=== PATIENT | female | born 1940 | race Caucasian/White ===

== ENCOUNTER 2020-08-20 07:50 | Inpatient (IN) ==
--- NOTE | 2020-08-20 07:54 | Emergency Department Note ---
Impression & Plan Closed intertrochanteric fracture, Fall, Acute leg pain ED Provider Note NAME: KAREN CASTREJON AGE: 80 SEX: F : 1940 ARRIVES VIA: Ambulance INFORMANT: Patient, ED PROVIDER(S): Beny Nayak MD Chief Complaint: Fall, leg pain HPI: Patient did report slipping out of bed earlier this morning. Unknown downtime. The patient denies any LOC or head strike. The patient does not use blood thinners. The patient reportedly had some pain to the right lower extremity but did have abrasions noted to the left knee. Patient denies any prior orthopedic history. The patient states she is compliant with medications. The patient is live by herself at home and reportedly does not use an ambulatory assist device. Patient denies fevers, chills, chest pains, nausea, vomiting, head, neck, back, abdomen, chest, or bilateral upper extremity pain. Patient did not take anything prior to arrival. The patient's pain is sharp and achy constant well localized to the right mid thigh and is worse with palpation or movement. The patient states she was able to move from the front to the top of the bed but did have pain with bearing weight. He also was unable to bear full weight on the right lower extremity. ROS: See HPI for pertinent positives and negatives. A total of 10 systems were reviewed and otherwise negative. Past medical history: See below Surgical history: See below Social history: See below Physical Exam: GENERAL: Wearing a mask. NAD, non-toxic. EYE EXAM: Normal conjunctiva. PERRL, no anisocoria and EOM's grossly intact w/o pain. Head: Normocephalic atraumatic without contusion or laceration noted. NECK: Supple, no nuchal rigidity, no adenopathy, non-tender. No signs of meningismus. No midline C-spine TTP. LUNGS: Clear to auscultation. Normal chest wall mechanics. HEART: NSR, no MRG. ABDOMEN: Abdomen soft, non-tender, normo-active bowel sounds, no masses, no rebound or guarding. BACK: No CVA TTP. No pain to the thoracic or lumbar spine SKIN: No rashes and no bruising. UPPER EXTREMITIES: Upper extremities are grossly normal. No obvious TTP or deformity. Good range of motion. LOWER EXTREMITIES: Decreased range of motion right lower extremity with pain to the right mid thigh, neurovascular intact distally with soft compartments, no obvious laceration, good range of motion left lower extremity, small abrasion to the right medial knee with no obvious effusion. Soft compartments neurovascular intact distally NEURO EXAM: A&O x3, cranial nerves II-XII grossly intact, normal speech, moves all 4 extremities on command w/o issue. Differential diagnoses: Fracture, subluxation, dislocation, contusion, ligamentous injury, neurovascular, compartment syndrome, rhabdomyolysis, as well as other pathologies. Course: Patient was seen and evaluated the bedside. Full history physical exam was performed. EKG: Normal sinus rhythm, rate of 91, prolonged QTC, normal QRS and W[place], left axis deviation. No prior EKGs for comparison. Imaging Studies: Radiology results as stated below per my review in the radiologist's interpretation: XR chest 1V portable HISTORY: Right hip fracture. Fall. COMPARISON: None. FINDINGS: Questionable vague 3 cm focal density within the right upper lobe. Otherwise, lungs are clear. No pleural effusion is. No pneumothorax. The heart is normal in size. No rib fractures. IMPRESSION: 1. No acute process within the chest. 2. Questionable vague 3 cm focal density within the right upper lobe. This is likely due to overlying artifact/soft tissues. However, repeat PA and lateral views the chest are recommended for further evaluation to exclude a pulmonary lesion. ACT 112: Negative or not required by law. Electronically signed by: Rad Boyle M.D. 08/20/2020 8:44 AM Dictated: 08/20/2039 Transcribed: 08/20/20838 LEFT KNEE 3 VIEWS CLINICAL HISTORY: Fall with left knee pain. FINDINGS: AP, crosstable lateral, and sunrise views of the left knee are obtained. No prior studies are available for comparison at the time of dictation. The skeletal structures are osteopenic. No fracture is seen. There is mild tricompartmental degenerative joint space narrowing. There are small marginal osteophytes and patellar enthesophytes. No joint effusion is identified. A calcified fabella is incidentally noted. The overlying soft tissues are normal as imaged. IMPRESSION: No acute bony abnormality is identified. Electronically signed by: Logan Lopez M.D. 08/20/2020 8:40 AM Dictated: 08/20/2035 Transcribed: 08/20/20834 XR hip RT min 2V, XR femur RT 2V routine CLINICAL HISTORY: R femur pain. Fall. COMPARISON STUDY: None. FINDINGS: Comminuted and displaced intertrochanteric fracture the proximal right femur. The most lesser trochanter demonstrates up to 1.6 cm of medial displacement. No dislocation. The visualized pelvic bones are intact. No fractures within the mid to distal right femur. IMPRESSION: Comminuted and displaced intertrochanteric fracture of the proximal right femur. ACT 112: Negative or not required by law. Electronically signed by: Rad Boyle M.D. 08/20/2020 8:37 AM Dictated: 08/20/20835 Transcribed: 08/20/20835 Cardiac monitoring: An order was placed for continuous cardiac monitoring. The monitor shows a rate of 82 with sinus rhythm. MDM: Patient was seen due to concern for fall. The patient does have pain and limited range of motion of the right lower extremity. Plain films were ordered. Patient also did have an abrasion to the left knee although she denied any pain. X-ray was ordered. The patient declined any pain medication at this time. Patient does have an a hip fracture. Additional chest x-ray Covid swab blood work were obtained. Patient is white count of 13 with a normal H&H. Kidney function is unremarkable. Orthopedics is made aware Daniel Gutierrez PA-C. I did speak the on-call hospitalist Megan Reilly PA-C and the patient was to be admitted under Dr. Vieyra. Past Med/Surg History Medical History Anxiety History of breast cancer HTN (hypertension) Surgical History History of mastectomy Right - 2013 Family History Mother , 92 Old age Father Sudden Sister Lymphoma Leukemia Social History Smoking Status: Never smoker Hx Alcohol Use: No Hx Substance Use: No Preferred Language: Kyrgyz marital status: Current Living Situation: Alone Current Living Situation Comment: skilled nursing apartment Feels Safe at Home: Yes Allergies Allergies Allergy/AdvReac Type Severity Reaction Status Date / Time amoxicillin Allergy Rash Unverified 08/20/20 08:16 Home Meds Home Medications Medication Instructions Recorded Confirmed buspirone 5 mg PO BID PRN 08/20/20 08/20/20 letrozole 5 mg PO DAILY 08/20/20 08/20/20 lisinopril 2.5 mg PO DAILY 08/20/20 08/20/20 Results & Data (ED) Vital Signs Vital Signs - 24 hr 08/20/20 07:59 08/20/20 08:10 Temperature 37.1 C Temperature Source Oral Pulse Rate 82 Respiratory Rate 18 Respiratory Effort / Characteristics Non-Labored Spontaneous Respiratory Depth Normal Respiratory Pattern Regular Blood Pressure 164/99 H Blood Pressure Mean 120 Blood Pressure Position Lying Pulse Oximetry 97 98 Oxygen Delivery Method Room Air Room Air Sepsis Recent Fever Within 48 Hours No Sepsis New/Unexplained Change in Mental Status No Sepsis Action Taken by Nursing No Action Required Home Medications Current Medication List: was personally reviewed by me Laboratory Data Result diagrams: 08/20/20 08:45 08/20/20 08:45 Lab Results 08/20/20 08/20/20 08/20/20 Range/Units 08:45 08:45 08:45 WBC 13.59 H (4.8-10.8) K/uL RBC 4.51 (4.2-5.4) M/uL Hgb 13.7 (12.0-16.0) g/dL Hct 40.4 (37-47) % MCV 89.6 (80-100) fL MCH 30.4 (25-34) pg MCHC 33.9 (32-36) g/dL RDW Std Deviation 42.1 (36.4-46.3) fL RDW Coeff of Kelsey 12.8 (11.5-14.5) % Plt Count 332 (130-400) K/uL MPV 9.6 (7.4-10.4) fL Immature Gran % (Auto) 0.2 % Neut % (Auto) 83.8 % Lymph % (Auto) 5.6 % [place] % (Auto) 10.2 % Eos % (Auto) 0.1 % Baso % (Auto) 0.1 % Neut # (Auto) 11.40 H (1.4-6.5) K/uL Lymph # (Auto) 0.76 L (1.2-3.4) K/uL [place] # (Auto) 1.38 H (0.11-0.59) K/uL Eos # (Auto) 0.01 (0-0.5) K/uL Baso # (Auto) 0.01 (0-0.2) K/uL Immature Gran # (Auto) 0.03 H (0.00-0.02) K/uL PT 11.2 (9.0-12.0) Seconds INR 1.1 (0.9-1.1) APTT 23.6 (21.0-31.0) Seconds PTT Ratio 0.9 Sodium 139 (136-145) mmol/L Potassium 4.1 (3.5-5.1) mmol/L Chloride 107 (98-107) mmol/L Carbon Dioxide 23 (21-32) mmol/L Anion Gap 9.0 (3-11) BUN 23 H (7-18) mg/dl Creatinine 0.91 (0.6-1.2) mg/dl Est Cr Clr Drug Dosing 50.3 ml/min Est GFR ( Amer) 69.1 Est GFR (Non-Af Amer) 59.6 BUN/Creatinine Ratio 25.2 H (10-20) Glucose 205 H (70-99) mg/dl Calcium 10.1 (8.5-10.1) mg/dl 25-OH Vitamin D Total (30-100) ng/ml COVID-19 Eval Order SARS-CoV-2, RNA, NAAT (NEGATIVE) 08/20/20 08/20/20 08/20/20 Range/Units 08:50 08:50 08:52 WBC (4.8-10.8) K/uL RBC (4.2-5.4) M/uL Hgb (12.0-16.0) g/dL Hct (37-47) % MCV (80-100) fL MCH (25-34) pg MCHC (32-36) g/dL RDW Std Deviation (36.4-46.3) fL RDW Coeff of Kelsey (11.5-14.5) % Plt Count (130-400) K/uL MPV (7.4-10.4) fL Immature Gran % (Auto) % Neut % (Auto) % Lymph % (Auto) % [place] % (Auto) % Eos % (Auto) % Baso % (Auto) % Neut # (Auto) (1.4-6.5) K/uL Lymph # (Auto) (1.2-3.4) K/uL [place] # (Auto) (0.11-0.59) K/uL Eos # (Auto) (0-0.5) K/uL Baso # (Auto) (0-0.2) K/uL Immature Gran # (Auto) (0.00-0.02) K/uL PT (9.0-12.0) Seconds INR (0.9-1.1) APTT (21.0-31.0) Seconds PTT Ratio Sodium (136-145) mmol/L Potassium (3.5-5.1) mmol/L Chloride (98-107) mmol/L Carbon Dioxide (21-32) mmol/L Anion Gap (3-11) BUN (7-18) mg/dl Creatinine (0.6-1.2) mg/dl Est Cr Clr Drug Dosing ml/min Est GFR ( Amer) Est GFR (Non-Af Amer) BUN/Creatinine Ratio (10-20) Glucose (70-99) mg/dl Calcium (8.5-10.1) mg/dl 25-OH Vitamin D Total 24.4 L (30-100) ng/ml COVID-19 Eval Order Covid19 [facility] SARS-CoV-2, RNA, NAAT NEGATIVE (NEGATIVE) Administered Medications Sodium Chloride (Nss 1000ml) 1,000 mls @ 150 mls/hr IV .[id number] [facility], [facility] Stop: 08/20/20 15:24 Last Admin: 08/20/20 09:00 Dose: 150 mls/hr Documented by: [id number] Discharge Plan Visit Data Chief Complaint: Fall ED Provider: Beny Nayak Discharge Problem: Closed intertrochanteric fracture, Fall, Acute leg pain Forms Stand Alone Forms: My [employer] Prescriptions Prescriptions: No Action lisinopril 5 mg tablet 2.5 mg PO DAILY RF: 0 letrozole 2.5 mg tablet 5 mg PO DAILY RF: 0 buspirone 5 mg tablet 5 mg PO BID PRN (Reason: Anxiety) RF: 0 Discharge Problem: Closed intertrochanteric fracture Qualifiers: Encounter type: initial encounter Fracture alignment: displaced Laterality: right Qualified Code(s): S72.141A - Displaced intertrochanteric fracture of right femur, initial encounter for closed fracture Fall Qualifiers: Encounter type: initial encounter Qualified Code(s): W19.XXXA - Unspecified fall, initial encounter Acute leg pain Qualifiers: Laterality: right Qualified Code(s): M79.604 - Pain in right leg
[2020-08-20] MEDS ORDERED: MoRPHine SULFATE 2 MG/ML CARP IV PRN ×2 (08:31→11:31)
--- NOTE | 2020-08-20 08:39 | XRay Report ---
XR hip RT min 2V, XR femur RT 2V routine CLINICAL HISTORY: R femur pain. Fall. COMPARISON STUDY: None. FINDINGS: Comminuted and displaced intertrochanteric fracture the proximal right femur. The most less er trochanter demonstrates up to 1.6 cm of medial displacement. No dislocation. The visualized pelvic bones are intact. No fractures within the mid to distal right femur. IMPRESSION: Comminuted and displaced intertrochanteric fracture of the proximal right femur. ACT 112: Negative or not required by law. Electronically signed by: Rad Boyle M.D. 08/20/2020 8:37 AM
--- NOTE | 2020-08-20 08:41 | XRay Report ---
LEFT KNEE 3 VIEWS CLINICAL HISTORY: Fall with left knee pain. FINDINGS: AP, crosstable lateral, and sunrise views of the left knee are obtained. No prior studies a re available for comparison at the time of dictation. The skeletal structures are osteopenic. No frac ture is seen. There is mild tricompartmental degenerative joint space narrowing. There are small ivon inal osteophytes and patellar enthesophytes. No joint effusion is identified. A calcified fabella is incidentally noted. The overlying soft tissues are normal as imaged. IMPRESSION: No acute bony abnormality is identified. Electronically signed by: Logan Lopez M.D. 08/20/2020 8:40 AM
[2020-08-20] MEDS ORDERED: SODIUM CHLORIDE 0.9% 1000ML 1,000 ML IV SCH ×2 (08:45→12:00)
--- NOTE | 2020-08-20 08:45 | XRay Report ---
XR chest 1V portable HISTORY: Right hip fracture. Fall. COMPARISON: None. FINDINGS: Questionable vague 3 cm focal density within the right upper lobe. Otherwise, lungs are shona ar. No pleural effusion is. No pneumothorax. The heart is normal in size. No rib fractures. IMPRESSION: 1. No acute process within the chest. 2. Questionable vague 3 cm focal density within the right upper lobe. This is likely due to overlying artifact/soft tissues. However, repeat PA and lateral views the chest are recommended for further ev aluation to exclude a pulmonary lesion. ACT 112: Negative or not required by law. Electronically signed by: Rad Boyle M.D. 08/20/2020 8:44 AM
[2020-08-20 09:02] LABS: Basophils # (auto) 0.01 K/uL (0-0.2); Basophils % (auto) 0.1 %; Eosinophils # (auto) 0.01 K/uL (0-0.5); Eosinophils % (auto) 0.1 %; Hematocrit (blood only) 40.4 % (37-47); Hemoglobin 13.7 g/dL (12.0-16.0); Immature Granulocytes # (auto) 0.03 K/uL (0.00-0.02); Immature Granulocytes % (auto) 0.2 %; Lymphocytes # (auto) 0.76 K/uL (1.2-3.4); Lymphocytes % (auto) 5.6 %; Mean Corpuscular Hemoglobin 30.4 pg (25-34); Mean Corpuscular Hgb Conc 33.9 g/dL (32-36); Mean Corpuscular Volume 89.6 fL (80-100); Mean Platelet Volume 9.6 fL (7.4-10.4); Monocytes # (auto) 1.38 K/uL (0.11-0.59); Monocytes % (auto) 10.2 %; Neutrophils % (auto) 83.8 %; Platelet Count 332 K/uL (130-400); RDW Coefficient of Variation 12.8 % (11.5-14.5); RDW Standard Deviation 42.1 fL (36.4-46.3); Red Blood Count 4.51 M/uL (4.2-5.4); White Blood Count 13.59 K/uL (4.8-10.8)
[2020-08-20 09:21] LABS: BUN Creatinine Ratio 25.2 (10-20); Calcium 10.1 mg/dl (8.5-10.1); Creatinine Clr Calc Pharmacy 50.3 ml/min; Est GFR (African American) 69.1; Est GFR (Non-African American) 59.6; Potassium 4.1 mmol/L (3.5-5.1)
[2020-08-20 09:24] LABS: INR 1.1 (0.9-1.1); Partial Thromboplastin Ratio 0.9; Partial Thromboplastin Time 23.6 Seconds (21.0-31.0); Prothrombin Time 11.2 Seconds (9.0-12.0)
--- NOTE | 2020-08-20 10:32 | History & Physical Report ---
Date of Service August 20, 2020 Assessment & Plan (1) Fall: (2) Closed intertrochanteric fracture: Status post mechanical fall with sustained right intertrochanteric displaced comminuted proximal femur fracture. Patient admits to being able to complete 4 METS of activity without chest pain or shortness of breath. EKG and chest x-ray reviewed. Will repeat chest x-ray PA lateral view for completeness given abnormality. Overall low risk for procedure and no medical contraindication to proceed. Admit to medical Consult orthopedics N.p.o. until timing of procedure decided Bedrest, Fletcher catheter placed Preop antibiotics with cefazolin -patient with prior allergy to amoxicillin as rash, okay to proceed with cefazolin no history of anaphylaxis IV morphine severe pain, [place] moderate pain Leukocytosis wbc 13.59k, no s/sx of infection likely in setting of fall will obtain UA for pre op QTC lengthened 504ms, avoid QT prolonging agents repeat ecg in a.m. (3) Vitamin D deficiency: Vitamin D level 24.4 Start vitamin D3 5000 units daily Would repeat as outpatient in 3 months (4) Hyperglycemia: Admitting BSG 205 No prior history of diabetes, obtain A1c Monitor Accu-Cheks for now -if consistently elevated will add insulin coverage (5) HTN (hypertension): Blood pressure elevated in ED, likely in setting of fall and pain Continue lisinopril (6) DVT prophylaxis: SCD/teds for now will await surgical input to determine timing of surgery and reevaluate need for chemical prophylaxis Follow-up: PCP Dr. Beaulieu upon discharge Dispo: Admit to medical Patient was seen and examined in collaboration with Dr. Vieyra, please see addendum Daughter Marry (home) [phone] (cell) [phone] wishes to be contacted with updates. Discussed above assessment and plan and she agrees. History of Present Illness Chief Complaint: Fall prior to arrival. Primary Care Provider: Miranda Beaulieu, This is an 80-year-old female who has significant past medical history of right breast cancer status postmastectomy and radiation in 2013 and hypertension who presents to ED after sustaining a mechanical fall prior to arrival. She states she was trying to get back in bed when she slipped and fell on her right hip. She had immediate pain and inability to walk. Daughter called EMS. She was brought to ED where she was found to have sustained a right displaced comminuted proximal femur fracture. She was made bed rest. Prior to fall she states she has been in a good state of health. She denies any recent illness. She denies any fever, chills, sweats, lightheadedness, dizziness, syncope, striking of head, chest pain, shortness of breath, palpitations, cough, nausea, vomiting, abdominal pain, change in bowel or urinary habits. She resides at [facility] apartments at [facility]. She states she typically walks approximately 15 to 20 minutes daily and denies any exertional chest pain or shortness of breath. She denies any prior history of heart disease. Her appetite is otherwise been stable. Allergies Allergy/AdvReac Type Severity Reaction Status Date / Time amoxicillin Allergy Rash Unverified 08/20/20 08:16 latex Allergy Rash Verified 08/20/20 16:24 Home Medications Medication Instructions Recorded Confirmed Type buspirone 5 mg PO BID PRN 08/20/20 08/20/20 History letrozole 5 mg PO DAILY 08/20/20 08/20/20 History lisinopril 2.5 mg PO DAILY 08/20/20 08/20/20 History Past Med/Surg History Medical History Anxiety History of breast cancer HTN (hypertension) Pre-diabetes Surgical History History of mastectomy Right - 2013 Family History Mother , 92 Old age Father Sudden Sister Lymphoma Leukemia Social History Smoking Status: Never smoker Second Hand Exposure: No; Do You Dip or Chew Tobacco: No; Hx Alcohol Use: No Hx Substance Use: No Preferred Language: Slovak Communication Ability: Effective Beliefs That Will Affect Care: Confucianist marital status: Current Living Situation: Alone [facility] Feels Safe at Home: Yes Safety Concerns: Feels Safe At This Time Assistive Devices: Glasses Review of Systems Review of Systems: All systems reviewed & are unremarkable except as noted in HPI & below Physical Exam Physical Exam: Constitutional: Petite, female, WD/WN, vitals as above, NAD, sitting up in bed, pleasant, conversing easily Head: Normocephalic, Atraumatic Eyes: PERRL, conjunctivae normal, anicteric sclerae ENMT: external ear and nose normal, oropharynx normal Neck: trachea midline, no thyromegaly normal visual inspection Respiratory: normal respiratory effort, lungs clear to auscultation, no wheeze, rales, rhonchi. Normal insp/exp effort, no accessory muscle use Cardiovascular: RRR, no murmur, no edema Vessels: no JVD or carotid bruit Chest: normal inspection of chest Abdomen: normal bowel sounds, soft, nontender, no hepatosplenomegaly Musculoskeletal: no cyanosis or clubbing, active range of motion to all extremities except right lower extremity not evaluated in setting of fracture, right lower extremity shortened and inverted Skin: no rashes, warm and dry normal turgor Neurologic: PERRL, EOMI, accommodation nl, no face palsy, no dysarthria CN's II-XI intact bilaterally and moves all extremities Psychiatric: A+Ox3, euthymic affect Lymphatic: no cervical or axillary lymphadenopathy : Fletcher catheter in place draining yellow urine Results & Data Results & Data ([facility]) Vital Signs (Past 12 Hours) Vital Signs Temp Pulse Resp BP Pulse Ox 08/20/20 08:10 98 08/20/20 07:59 37.1 C 82 18 164/99 H 97 Diagnostic Findings CXR: 1. No acute process within the chest. 2. Questionable vague 3 cm focal density within the right upper lobe. This is likely due to overlying artifact/soft tissues. However, repeat PA and lateral views the chest are recommended for further evaluation to exclude a pulmonary lesion. Knee Xray: IMPRESSION: No acute bony abnormality is identified. Hip Xray: IMPRESSION: Comminuted and displaced intertrochanteric fracture of the proximal right femur. Femur Xray: IMPRESSION: Comminuted and displaced intertrochanteric fracture of the proximal right femur. COVID-19 Results Results COVID-19 Adm Lab Results: RBC 4.51 M/uL (4.2-5.4) 08/20/20 WBC 13.59 K/uL (4.8-10.8) H 08/20/20 Hgb 13.7 g/dL (12.0-16.0) 08/20/20 Hct 40.4 % (37-47) 08/20/20 Plt Count 332 K/uL (130-400) 08/20/20 Neutrophils (%) (Auto) 83.8 % 08/20/20 Lymphocytes (%) (Auto) 5.6 % 08/20/20 Monocytes # (Auto) 1.38 K/uL (0.11-0.59) H 08/20/20 Eosinophils # (Auto) 0.01 K/uL (0-0.5) 08/20/20 Immature Granulocyte % (Auto) 0.2 % 08/20/20 Neutrophils # (Auto) 11.40 K/uL (1.4-6.5) H 08/20/20 Lymphocytes # (Auto) 0.76 K/uL (1.2-3.4) L 08/20/20 Monocytes # (Auto) 1.38 K/uL (0.11-0.59) H 08/20/20 Eosinophils # (Auto) 0.01 K/uL (0-0.5) 08/20/20 Basophils # (Auto) 0.01 K/uL (0-0.2) 08/20/20 Immature Granulocyte # (Auto) 0.03 K/uL (0.00-0.02) H 08/20/20 Na 139 mmol/L (136-145) 08/20/20 K 4.1 mmol/L (3.5-5.1) 08/20/20 Cl 107 mmol/L (98-107) 08/20/20 CO2 23 mmol/L (21-32) 08/20/20 Anion Gap 9.0 (3-11) 08/20/20 BUN 23 mg/dl (7-18) H 08/20/20 Creatinine 0.91 mg/dl (0.6-1.2) 08/20/20 BUN/Creatinine Ratio 25.2 (10-20) H 08/20/20 Glucose Level 205 mg/dl (70-99) H 08/20/20 Ca 10.1 mg/dl (8.5-10.1) 08/20/20 PTT 23.6 Seconds (21.0-31.0) 08/20/20 INR 1.1 (0.9-1.1) 08/20/20 SARS-CoV-2, RNA, NAAT NEGATIVE (NEGATIVE) 08/20/20 Chest X-Ray 08/20/20 Code Status & VTE Plan Code Status Full Code VTE Prophylaxis Plan VTE Prophylaxis will be ordered: Yes Supervising Physician Co-Signing Physician Notes Attending addendum: pt seen and examined , care co-ordinated with Ange Vu PA-C Labs , images reviewed 80 yo F , admitted after sustaining a fall /lost balance while attempt to get out of bed noted to have rt intertrochanteric fracture no complain of chest pain , SOB , dizzy spell prior or after fall admitted to medical /ortho floor pain control Ortho consulted as pt will need ORIF for rt hip fx pt is low risk for pre /post operative cardiac arrhythmia /CHF , risk of complication less than 1% pt should proceed for surgery as scheduled no other imaging or cardiac test needing to optimize risk PO lisinopril should be given on AM of surgery with sips of water to prevent post op hypertensive urgency please refer to further documentation by Megan Vu PA-C for discussion of other medical issues Rachell Vieyra MD (1) Closed intertrochanteric fracture Encounter type: initial encounter Fracture alignment: displaced Laterality: right Qualified Code(s): S72.141A - Displaced intertrochanteric fracture of right femur, initial encounter for closed fracture (2) Fall Encounter type: initial encounter Qualified Code(s): W19.XXXA - Unspecified fall, initial encounter
--- NOTE | 2020-08-20 11:26 | XRay Report ---
XR chest 2V PA/lateral HISTORY: 80 years-old Female abn portable xray possible nodular opacity of the right upper lung COMPARISON: Chest radiograph of same day at 8:20 AM TECHNIQUE: Semierect portable AP and lateral views of the chest FINDINGS: Cardiac mediastinal and hilar silhouettes are within normal limits. Mild right hemidiaphragm elevatio n. Calcified plaque of the thoracic aorta. There is no pneumothorax, pleural effusion, airspace conso lidation or overt pulmonary edema. No nodule or opacities identified to correlate with the previously described 3 cm atypical finding described on comparison. Surgical clips project over the right chest wall. Degenerative changes of the shoulders and spine. IMPRESSION: No acute process. The previously questioned right apical opacity was likely artifactual. ACT 112: Negative or not required by law. The above report was generated using voice recognition software. It may contain grammatical, syntax o r spelling errors. Electronically signed by: Javier Howard M.D. 08/20/2020 11:25 AM
[2020-08-20 11:28] LABS: Estimated Average Glucose 128 mg/dl; Hemoglobin A1C 6.1 % (4.5-5.6)
[2020-08-20] MEDS ORDERED: bisacodyL 10 MG SUPP PR PRN (11:31)
[2020-08-20] MEDS ORDERED: PROCHLORPERAZINE 5 MG in SYRINGE 4 ML IV PRN (11:31)
[2020-08-20] MEDS ORDERED: MAGNESIUM HYDROXIDE SUSP 30 ML UDC PO PRN (11:31)
[2020-08-20] MEDS ORDERED: NALOXONE HCL 0.4 MG/1 ML VIAL/CARP IV PRN (11:31)
[2020-08-20] MEDS ORDERED: oxyCODONE/ACETAMINOPHEN 5mg/325mg TAB PO PRN (11:31)
[2020-08-20] MEDS: CHOLECALCIFEROL 1,000 UNITS 25 MCG TAB PO SCH (13:20)
[2020-08-20] MEDS: lisinopril 2.5 MG TAB PO SCH (13:20)
--- NOTE | 2020-08-20 16:11 | Electrocardiogram Report ---
Test Reason : Blood Pressure : / mmHG Vent. Rate : 091 BPM Atrial Rate : 091 BPM P-R Int : 168 ms QRS Dur : 084 ms QT Int : 410 ms P-R-T Axes : 072 -86 067 degrees QTc Int : 504 ms Normal sinus rhythm Right atrial enlargement Left axis deviation Inferior infarct , age undetermined Abnormal ECG No previous ECGs available Confirmed by David Armas ([id number]) on 08/20/2020 4:10:48 PM Referred By: REFERRED SELF Confirmed By:David Armas
--- NOTE | 2020-08-20 17:25 | Orthopedic Consultation ---
Date of Consultation August 20, 2020 Assessment & Plan (1) Closed intertrochanteric fracture: Right displaced intertrochanteric hip fracture. Case was discussed with Dr. Donovan. Patient will require a trochanteric femoral nail. Plan for right TFN tomorrow. Supervising Physician Co-Signing Physician Notes Patient seen and examined, agree with above assessment plan Physical exam right lower extremity neurovascular sensory intact grossly, short externally rotated, compartment soft compressible Right displaced intertrochanteric hip fracture The patient is a 80yo female with displaced right intertrochanteric hip fracture sustained after a fall from standing height. . I indicated the patient for right hip cephalomedullary nail. The patient was informed of the risks and benefits of surgery, which include but not limited to infection, bleeding, blood clots, damage to nerves, vessels, bone and soft tissue, dislocation, leg length discrepancy, malunion, nonunion, failure of the implants, need for additional surgery and . The patient chose to proceed with surgical intervention and informed consent was obtained. History of Present Illness Reason for Consultation: Right displaced intertrochanteric hip fracture Attending Physician: Rachell Vieyra MD History of Present Illness Patient is an 80-year-old white female who resides at an apartment in [facility]. She states that she was making her bed this morning and lost her balance and fell to the floor. She had immediate pain in her hip and groin on the right side. She was unable to ambulate. She denies hitting her head denies loss of consciousness. She denies any chest pain or shortness of breath prior to or after the fall. She called her daughter who came to see her and then she was brought to the emergency department. She was found to have fracture of the right hip and was admitted by the hospitalist service. Been asked to take care of her right hip fracture. Allergies Allergy/AdvReac Type Severity Reaction Status Date / Time amoxicillin Allergy Rash Unverified 08/20/20 08:16 latex Allergy Rash Verified 08/20/20 16:24 Home Medications Medication Instructions Recorded Confirmed Type buspirone 5 mg PO BID PRN 08/20/20 08/20/20 History letrozole 5 mg PO DAILY 08/20/20 08/20/20 History lisinopril 2.5 mg PO DAILY 02/03/21 02/03/21 History Patient History Medical History Anxiety History of breast cancer HTN (hypertension) Pre-diabetes Surgical History History of mastectomy Right - 2013 Family History Mother , 92 Old age Father Sudden Sister Lymphoma Leukemia Social History Smoking Status: Never smoker Second Hand Exposure: No; Do You Dip or Chew Tobacco: No; Hx Alcohol Use: No Hx Substance Use: No Preferred Language: Bulgarian Communication Ability: Effective Beliefs That Will Affect Care: Mosque marital status: Current Living Situation: Alone Current Living Situation Comment: care home apartment. Feels Safe at Home: Yes Safety Concerns: Feels Safe At This Time Assistive Devices: Glasses Review of Systems Review of Systems: All systems reviewed & are unremarkable except as noted in HPI & below Constitutional: as per Subjective / HPI Physical Exam Physical Exam: Patient is an 80-year-old white female who appears her stated age. Alert and oriented x3. No acute distress. Pleasant and cooperative. She states that currently her pain is controlled. Examination of the right lower extremity shows the extremity shortened and externally rotated compared to the left. She has good range of motion of her right ankle and toes and sensation is intact. No range of motion is done with the right knee or right hip at this time secondary to right hip fracture. Her right knee is nontender on palpation. Hip has some mild pain on palpation over the lateral aspect. No visible abrasions or ecchymosis is noted. Left lower extremity is unaffected and has good range of motion at the hip knee and ankle. Upper extremities are unaffected and she is nontender at the shoulders, elbows, wrists. Her motion is within normal limits. She denies any cervical, thoracic, lumbar pain at this time. There is no gross motor or sensory loss seen at this time. Distal pulses are equal bilaterally of the upper lower extremities. Results & Data ([facility]) Vital Signs (Past 12 Hours) Vital Signs Temp Pulse Pulse Pulse Resp BP BP 08/20/20 15:43 37.4 C 94 H 18 131/77 08/20/20 11:44 37 C 81 16 08/20/20 11:12 76 18 08/20/20 08:10 08/20/20 07:59 37.1 C 82 18 164/99 H BP Pulse Ox 08/20/20 15:43 97 08/20/20 11:44 148/65 H 96 08/20/20 11:12 136/66 97 08/20/20 08:10 98 08/20/20 07:59 97 Laboratory Results Laboratory Results WBC 13.59 K/uL (4.8-10.8) H 08/20/20 08:45 RBC 4.51 M/uL (4.2-5.4) 08/20/20 08:45 Hgb 13.7 g/dL (12.0-16.0) 08/20/20 08:45 Hct 40.4 % (37-47) 08/20/20 08:45 MCV 89.6 fL (80-100) 08/20/20 08:45 MCH 30.4 pg (25-34) 08/20/20 08:45 MCHC 33.9 g/dL (32-36) 08/20/20 08:45 RDW Std Deviation 42.1 fL (36.4-46.3) 08/20/20 08:45 RDW Coeff of Kelsey 12.8 % (11.5-14.5) 08/20/20 08:45 Plt Count 332 K/uL (130-400) 08/20/20 08:45 MPV 9.6 fL (7.4-10.4) 08/20/20 08:45 Immature Gran % (Auto) 0.2 % 08/20/20 08:45 Neut % (Auto) 83.8 % 08/20/20 08:45 Lymph % (Auto) 5.6 % 08/20/20 08:45 Sac % (Auto) 10.2 % 08/20/20 08:45 Eos % (Auto) 0.1 % 08/20/20 08:45 Baso % (Auto) 0.1 % 08/20/20 08:45 Neut # (Auto) 11.40 K/uL (1.4-6.5) H 08/20/20 08:45 Lymph # (Auto) 0.76 K/uL (1.2-3.4) L 08/20/20 08:45 Sac # (Auto) 1.38 K/uL (0.11-0.59) H 08/20/20 08:45 Eos # (Auto) 0.01 K/uL (0-0.5) 08/20/20 08:45 Baso # (Auto) 0.01 K/uL (0-0.2) 08/20/20 08:45 Immature Gran # (Auto) 0.03 K/uL (0.00-0.02) H 08/20/20 08:45 PT 11.2 Seconds (9.0-12.0) 08/20/20 08:45 INR 1.1 (0.9-1.1) 08/20/20 08:45 APTT 23.6 Seconds (21.0-31.0) 08/20/20 08:45 PTT Ratio 0.9 08/20/20 08:45 Sodium 139 mmol/L (136-145) 08/20/20 08:45 Potassium 4.1 mmol/L (3.5-5.1) 08/20/20 08:45 Chloride 107 mmol/L (98-107) 08/20/20 08:45 Carbon Dioxide 23 mmol/L (21-32) 08/20/20 08:45 Anion Gap 9.0 (3-11) 08/20/20 08:45 BUN 23 mg/dl (7-18) H 08/20/20 08:45 Creatinine 0.91 mg/dl (0.6-1.2) 08/20/20 08:45 Est Cr Clr Drug Dosing 50.3 ml/min 08/20/20 08:45 Est GFR ( Amer) 69.1 08/20/20 08:45 Est GFR (Non-Af Amer) 59.6 08/20/20 08:45 BUN/Creatinine Ratio 25.2 (10-20) H 08/20/20 08:45 Glucose 205 mg/dl (70-99) H 08/20/20 08:45 POC Glucose 148 mg/dl (70-99) H 08/20/20 12:18 Estimat Average Glucose 128 mg/dl 08/20/20 08:45 Hemoglobin A1c 6.1 % (4.5-5.6) H 08/20/20 08:45 Calcium 10.1 mg/dl (8.5-10.1) 08/20/20 08:45 25-OH Vitamin D Total 24.4 ng/ml (30-100) L 08/20/20 08:52 COVID-19 Eval Order Covid19 IDNow [facility] 08/20/20 08:50 SARS-CoV-2, RNA, NAAT NEGATIVE (NEGATIVE) 08/20/20 08:50 Blood Type A Negative 08/20/20 08:45 Antibody Screen NEGATIVE 08/20/20 08:45 Diagnostic Findings XR hip RT min 2V, XR femur RT 2V routine CLINICAL HISTORY: R femur pain. Fall. COMPARISON STUDY: None. FINDINGS: Comminuted and displaced intertrochanteric fracture the proximal right femur. The most lesser trochanter demonstrates up to 1.6 cm of medial displacement. No dislocation. The visualized pelvic bones are intact. No fractures within the mid to distal right femur. IMPRESSION: Comminuted and displaced intertrochanteric fracture of the proximal right femur. XR hip RT min 2V, XR femur RT 2V routine CLINICAL HISTORY: R femur pain. Fall. COMPARISON STUDY: None. FINDINGS: Comminuted and displaced intertrochanteric fracture the proximal right femur. The most lesser trochanter demonstrates up to 1.6 cm of medial displacement. No dislocation. The visualized pelvic bones are intact. No fractures within the mid to distal right femur. IMPRESSION: Comminuted and displaced intertrochanteric fracture of the proximal right femur. (1) Closed intertrochanteric fracture Encounter type: initial encounter Fracture alignment: displaced Laterality: right Qualified Code(s): S72.141A - Displaced intertrochanteric fracture of right femur, initial encounter for closed fracture
[2020-08-20] MEDS: ACETAMINOPHEN 325 MG TAB PO PRN (18:55)
[2020-08-20 19:58] LABS: Appearance Urine Turbid (Clear); Bacteria Urine Automated Negative (Negative); Bilirubin Urine Negative (Negative); Blood Urine Negative (Negative); Color Urine Yellow; Epithelial Cell Urine Auto >30 /lpf (0-5); Glucose Urine UA Negative (Negative); Ketones Urine Trace (Negative); Leukocyte Esterase Urine Negative (Negative); Nitrite Urine Negative (Negative); Protein Urine Negative (Negative); RBC Urine Automated 0-4 /hpf (0-4); Specific Gravity Urine 1.029 (1.000-1.030); Urobilinogen Urine Negative (Negative)
--- NOTE | 2020-08-20 20:16 | Anesthesiology Consultation ---
Date of Service August 20, 2020 Assessment & Plan (1) Encounter for pre-operative examination: Chart Review Chart Review: Acceptable Risk for Surgery and Patient NOT seen in Pre Admission Testing Consults Requested none History Surgery Operation Date: 08/21/20 11:05 Proposed Procedures p Intramedullary Haile Femur - Dakotah Donovan DO Height/Weight Height: 5 ft 4 in Weight: 79.4 kg Allergies Allergy/AdvReac Type Severity Reaction Status Date / Time amoxicillin Allergy Rash Unverified 08/20/20 08:16 latex Allergy Rash Verified 08/20/20 16:24 Medications Home Medications Medication Instructions Recorded Confirmed Last Taken buspirone 5 mg PO BID PRN 08/20/20 08/20/20 Unknown letrozole 5 mg PO DAILY 08/20/20 08/20/20 08/19/20 lisinopril 2.5 mg PO DAILY 08/20/20 08/20/20 08/19/20 Active Medications Generic Name Dose Route Start Last Admin Trade Name Freq PRN Reason Stop Dose Admin Acetaminophen 650 mg 08/20/20 11:31 08/20/20 18:55 Acetaminophen 325 Mg Tab PO 09/19/20 11:30 650 mg Q6H PRN Administration Pain & Pre PT Sodium Chloride 1,000 mls @ 80 mls/hr 08/20/20 12:00 08/20/20 14:32 Nss 1000ml IV Not Given .[id number] DEMETRA Lisinopril 2.5 mg 08/20/20 12:00 08/20/20 13:20 Lisinopril 2.5 Mg Tab PO 09/19/20 11:59 2.5 mg DAILY DEMETRA Administration Miscellaneous 1 ea 08/20/20 16:00 08/20/20 17:44 Letrozole 2.5 Mg Tablet: Order Awaiting Action N/A 09/19/20 15:59 Not Given QS DEMETRA Vitamin D 5,000 units 08/20/20 12:00 08/20/20 13:20 Cholecalciferol 1,000 Units 25 Mcg Tab PO 09/19/20 11:59 5,000 units QAM DEMETRA Administration Past Medical History Medical History Anxiety History of breast cancer HTN (hypertension) Pre-diabetes Exercise / Class Metabolic Activity III < 4 Walking/Shop/Light housework Denies CP or SOB Past Family History Family History Mother , 92 Old age Father Sudden Sister Lymphoma Leukemia Past Surgical History Surgical History History of mastectomy Right - 2013 Social History Smoking Status: Never smoker Do You Dip or Chew Tobacco: No Hx Alcohol Use: No Hx Substance Use: No substance use type: does not use Physical Exam Vital Signs Last Vital Signs Temp 37.4 C 08/20/20 15:43 Pulse 94 H 08/20/20 15:43 Resp 18 08/20/20 15:43 BP 131/77 08/20/20 15:43 Pulse Ox 97 08/20/20 15:43 Testing Laboratory Results 08/20/20 08:45 08/20/20 08:45 PT 11.2 Seconds (9.0-12.0) 08/20/20 08:45 INR 1.1 (0.9-1.1) 08/20/20 08:45 APTT 23.6 Seconds (21.0-31.0) 08/20/20 08:45 Hemoglobin A1c 6.1 % (4.5-5.6) H 08/20/20 08:45 Urine Color Yellow 08/20/20 18:48 Urine Appearance Turbid (Clear) A 08/20/20 18:48 Urine pH 5.0 (4.5-7.5) 08/20/20 18:48 Ur Specific [place] 1.029 (1.000-1.030) 08/20/20 18:48 Urine Protein Negative (Negative) 08/20/20 18:48 Urine Glucose (UA) Negative (Negative) 08/20/20 18:48 Urine Ketones Trace (Negative) H 08/20/20 18:48 Urine Nitrite Negative (Negative) 08/20/20 18:48 Ur Leukocyte Esterase Negative (Negative) 08/20/20 18:48 Blood Type A Negative 08/20/20 08:45 Antibody Screen NEGATIVE 08/20/20 08:45 08/20/20 12:18 POC Glucose 148 H Electrocardiogram Date: 08/20/20 Findings: + NSR @ (91) Right atrial enlargement, prolonged QTc (405), left axis deviation, inferior infarct age undetermined Chest X-Ray Date: 08/20/20 Findings: + NAD
[2020-08-20 20:29] LABS: Amorphous Sediment Urine Present (None Prsent)
[2020-08-20] MEDS: DOCUSATE SODIUM/SENNA 50/8.6MG TAB PO SCH (20:37)
[2020-08-21] MEDS ORDERED: ceFAZolin 2000MG 2,000 MG/15 ML SYR IV SCH (06:00)
[2020-08-21 06:24] LABS: Basophils # (auto) 0.02 K/uL (0-0.2); Basophils % (auto) 0.2 %; Eosinophils # (auto) 0.04 K/uL (0-0.5); Eosinophils % (auto) 0.3 %; Hematocrit (blood only) 32.6 % (37-47); Hemoglobin 10.9 g/dL (12.0-16.0); Immature Granulocytes # (auto) 0.01 K/uL (0.00-0.02); Immature Granulocytes % (auto) 0.1 %; Lymphocytes # (auto) 2.45 K/uL (1.2-3.4); Lymphocytes % (auto) 19.7 %; Mean Corpuscular Hgb Conc 33.4 g/dL (32-36); Mean Corpuscular Volume 89.8 fL (80-100); Mean Platelet Volume 9.4 fL (7.4-10.4); Monocytes # (auto) 1.91 K/uL (0.11-0.59); Monocytes % (auto) 15.4 %; Neutrophils # (auto) 8.01 K/uL (1.4-6.5); Neutrophils % (auto) 64.3 %; Platelet Count 321 K/uL (130-400); RDW Coefficient of Variation 13.2 % (11.5-14.5); RDW Standard Deviation 43.7 fL (36.4-46.3); Red Blood Count 3.63 M/uL (4.2-5.4); White Blood Count 12.44 K/uL (4.8-10.8)
[2020-08-21] MEDS ORDERED: BUPIVACAINE 0.5 % 5 MG/1 ML PF 10ML VIAL ONE (06:56)
[2020-08-21 07:10] LABS: BUN Creatinine Ratio 44.2 (10-20); Calcium 9.4 mg/dl (8.5-10.1); Creatinine Clr Calc Pharmacy 77.5 ml/min; Est GFR (African American) 100.3; Est GFR (Non-African American) 86.6; Magnesium 2.1 mg/dl (1.8-2.4); Potassium 3.8 mmol/L (3.5-5.1)
[2020-08-21] MEDS: CHOLECALCIFEROL 1,000 UNITS 25 MCG TAB PO SCH (08:25)
--- NOTE | 2020-08-21 09:28 | Communication Note ---
Date of Service: August 21, 2020 Age-related osteoporosis with current pathological fracture, R intertrochanteric proximal femur Pt admitted yesterday 08/20/2020 : 80 yo female presenting after slipping out of bed. Xrays show osteopenic skeletal structures . Vitamin D level 24.4 pt started on vitamin D3 supplement daily, repeat level in 3 months, o Ortho consult appreciated ,scheduled for Rt hip ORIF today Leukocytosis : WBC 13K -12K UA + turbid color /negative for leukocyte esterase , nitrate ( possible concentrated Urine due to dehydration ? UTI can be be determined given lack of infection markers;leukocyte esterase , nitrate) urine culture ordered pt is ordered Ancef pre and post op -continued if WBC continues to worsened , Urine culture + growth will change Abx to Rocephin Acute blood loss anemia : HB drop noted 13-11 possible due to fracture of large bone /Rt femur fx scheduled for ORIF today follow H&H post procedure no indication for PRBC transfusion now Rachell Vieyra MD
[2020-08-21] MEDS: lisinopril 2.5 MG TAB PO SCH (09:36)
[2020-08-21] MEDS: LETROZOLE 2.5 MG TAB PO SCH (09:45)
[2020-08-21] MEDS ORDERED: LIDOCAINE HCL 2% 2 ML VIAL/AMP(20MG/ML) INFIL ONE (10:59)
[2020-08-21] MEDS ORDERED: PROPOFOL IV EMULSION 10 MG/ML 20 ML VIAL IV ONE ×2 (10:59→13:40)
[2020-08-21] MEDS ORDERED: fentaNYL citrate 100 MCG/2 ML VIAL ONE (11:00)
[2020-08-21] MEDS ORDERED: MIDAZOLAM HCL 1 MG/ML 2ML VIAL ONE (11:00)
[2020-08-21] MEDS ORDERED: ATROPINE SULFATE 0.1 MG/ML 10ML SYR IV PRN (11:07)
[2020-08-21] MEDS ORDERED: ONDANSETRON INJ 2 MG/ML 2 ML VIAL IV PRN (11:07)
[2020-08-21] MEDS ORDERED: ePHEDrine sulfate 50 MG/ML AMP IV PRN (11:07)
[2020-08-21] MEDS ORDERED: fentaNYL citrate 100 MCG/2 ML VIAL IV PRN (11:07)
[2020-08-21] MEDS ORDERED: BUPIVACAINE/EPINEPHRINE 0.5% MPF 1:200,000 30 ML VIAL ONE (11:20)
--- NOTE | 2020-08-21 11:33 | Orthopedic Progress Note ---
Date of Service August 21, 2020 Assessment & Plan (1) Closed intertrochanteric fracture: The patient is a 80yo female with displaced right intertrochanteric hip fracture sustained after a fall from standing height. The patient was medically stabilized on 08/21/2020. I indicated the patient for right hip cephalomedullary nail. The patient was informed of the risks and benefits of surgery, which include but not limited to infection, bleeding, blood clots, damage to nerves, vessels, bone and soft tissue, dislocation, leg length discrepancy, malunion, nonunion, failure of the implants, need for additional surgery and . The patient chose to proceed with surgical intervention and informed consent was obtained. Admission and Anticipated Discharge Date Admission Date: August 20, 2020 Subjective Patient seen in preoperative holding, comfortable, pain well controlled, medically optimized for surgery. Review of Systems Review of Systems: All systems reviewed & are unremarkable except as noted in HPI & below Constitutional: as per Subjective / HPI Physical Exam Physical Exam: Right lower extremity is neurovascular sensory intact, +2 dorsalis pedis pulse, compartments soft and compressible, short and externally rotated skin overlying right hip clean dry and intact. Constitutional: WD/WN, vitals as above Results & Data ([facility]) Vital Signs (Past 12 Hours) Vital Signs Temp Pulse Resp BP Pulse Ox 08/21/20 10:50 37 C 76 20 166/66 H 99 08/21/20 07:51 37 C 89 18 147/74 H 97 Diagnostic Findings XR hip RT min 2V, XR femur RT 2V routine CLINICAL HISTORY: R femur pain. Fall. COMPARISON STUDY: None. FINDINGS: Comminuted and displaced intertrochanteric fracture the proximal right femur. The most lesser trochanter demonstrates up to 1.6 cm of medial displacement. No dislocation. The visualized pelvic bones are intact. No fractures within the mid to distal right femur. IMPRESSION: Comminuted and displaced intertrochanteric fracture of the proximal right femur. (1) Closed intertrochanteric fracture Encounter type: initial encounter Fracture alignment: displaced Laterality: right Qualified Code(s): S72.141A - Displaced intertrochanteric fracture of right femur, initial encounter for closed fracture
--- NOTE | 2020-08-21 11:33 | History & Physical Bridge Note ---
Date of Service August 21, 2020 History & Physical Bridge Note I have examined the patient, reviewed the History & Physical and in the interval since the performance of the History & Physical I have noted the following changes of clinical significance: no changes noted
[2020-08-21] MEDS ORDERED: Nursing to Pharmacy Communication SCH (11:45)
--- NOTE | 2020-08-21 13:27 | Post Operative Brief Note ---
Immediate Post Op Note v1 Date of Surgery August 21, 2020 Pre & Post Diagnosis Operation Date: 08/21/20 11:05 Pre-Op Diagnosis: RIGHT DISPLACED INTERTROCHANTERIC HIP FRACTURE Post-Op Diagnosis: RIGHT DISPLACED INTERTROCHANTERIC HIP FRACTURE I identified the patient and participated in the time-out.: Yes Procedure Operation Date: 08/21/20 11:05 Actual Procedures p RIGHT HIP CEPHALOMEDULLARY NAIL (Right) - Dakotah Donovan DO Surgeon Dakotah Donovan DO Aligning Checker none Estimated Blood Loss 125 Findings Consistent with Post-Op Diagnosis Fluids 600 cc LR Specimens none Drains Fletcher Catheter (Patient entered OR suite with catheter intact and draining.) Anesthesia Type Spinal MAC Complications none Disposition Disposition: Recovery Room Overlapping Procedure I was present for: the critical portions of procedure. I was immediately available: during the entire case. Back up surgeon: was not required during procedure.
--- NOTE | 2020-08-21 13:28 | Operative Report ---
Post Operative Report Pre & Post Diagnosis Operation Date: 08/21/20 11:05 Pre-Op Diagnosis: RIGHT DISPLACED AND COMMINUTED INTERTROCHANTERIC HIP FRACTURE Post-Op Diagnosis: RIGHT DISPLACED AND COMMINUTED INTERTROCHANTERIC HIP FRACTURE I identified the patient and participated in the time-out.: Yes Procedure Operation Date: 08/21/20 11:05 Actual Procedures p right hip cephalomedullary nail- Dakotah Donovan DO Surgeon Dakotah Donovan DO Adaptive Physical Education Specialist none Estimated Blood Loss 125 Findings Consistent with Post-Op Diagnosis Fluids 600 cc LR Specimens None Anesthesia Type Spinal MAC Complications none Disposition Disposition: Recovery Room Indications The patient is a 80 yo female with displaced right intertrochanteric hip fracture sustained after a fall from standing height. The patient was medically stabilized on 08/21/2020. I indicated the patient for right hip cephalomedullary nail. The patient was informed of the risks and benefits of surgery, which include but not limited to infection, bleeding, blood clots, damage to nerves, vessels, bone and soft tissue, dislocation, leg length discrepancy, malunion, nonunion, failure of the implants, need for additional surgery and . The patient chose to proceed with surgical intervention and informed consent was obtained. Description of Procedure Following induction of adequate spinal anesthesia, the patient was placed on the fracture table. The left leg was placed in the well leg fonseca and the right leg in the traction leg fonseca. All bony prominences were protected. Utilizing c-arm fluoroscopy closed reduction of the fracture was performed. Once satisfied with fracture reduction the right hip was prepped and draped in the usual sterile manner. A time out was performed, patient identified, site rayne verified. Appropriate IV antibiotics were given. The incision was made from the tip of the greater trochanter proximally. Subcutaneous tissue was sharply dissected to the tip of the greater trochanter, electrocautery used for hemostasis. Under fluoroscopic guidance the drill tipped guidewire was inserted at the tip of the greater trochanter and advanced into the medullary canal. Utilizing the intramedullary drill the guidewire was overdrilled with tissue protector attached. A 11 mm short Synthes TFN was inserted and impacted into position and confirmed by c-arm fluoroscopy. Next the aiming arm was attached to the insertion handle. A incision was made and carried down through subcutaneous tissues to bone. The blade guide sleeve was inserted and secured down to bone. The guide wire was passed across the fracture site to the tip of the femoral head, position was confirmed in the AP and lateral planes utilizing c-arm fluoroscopy. The guide pin was measured and the 11.0mm drill bit passed over the guide pin to open lateral cortex followed by a 6.0mm/10.0mm cannulated reamer to a depth of 100 mm. Next the helical blade was inserted and locked proximally. Traction was released and interfragmentary compression applied. Distally a stab incision was made in the skin and carried down to bone. The triple trocar assembly was inserted into the aiming guide to bone. Utilizing a 4.0mm drill, both cortices were drilled. The nail was locked distally using a single 4.9mm x 40 mm locking bolt. The aiming guide was removed at this time and final radiographs were obtained utilizing c-arm fluoroscopy to confirm overall position and fracture reduction. Incisions were irrigated with copious amounts of sterile saline solution. Subcutaneous tissue were injected utilizing .5% marcaine with epi. Deep closure was performed using #1 Vicryl followed by 2-0 Vicryl for subcutaneous tissues and sunil in the skin. Sterile dressing, Xeroform gauze, 4x4s and tegaderm were applied. The patient tolerated the procedure well and was transported to the PACU in stable condition. I attest to the content of the Intraoperative Record and any orders documented therein. Any exceptions are noted below.
--- NOTE | 2020-08-21 13:44 | Orthopedic Progress Note ---
Date of Service August 21, 2020 Assessment & Plan (1) Closed intertrochanteric fracture: Status post right hip cephalomedullary nail -Ancef x24 -DVT prophylaxis: SCDs, teds, Lovenox daily -Toe-touch weight-bear right lower extremity -PT/OT -Postoperative x-ray pending -A.m. labs Admission and Anticipated Discharge Date Admission Date: August 20, 2020 Subjective Post Operative Progress Note Patient seen laying comfortably in bed, denies complaints, pain well controlled, no acute issues. Still feeling effects of spinal anesthesia. Review of Systems Review of Systems: All systems reviewed & are unremarkable except as noted in HPI & below Constitutional: as per Subjective / HPI Physical Exam Physical Exam: Right lower extremity physical exam limited secondary to spinal anesthesia, +2 dorsalis pedis pulse, compartments soft and compressible, dressings clean dry and intact. Constitutional: WD/WN, vitals as above Results & Data ([facility]) Vital Signs (Past 12 Hours) Vital Signs Temp Pulse Resp BP Pulse Ox 08/21/20 10:50 37 C 76 20 166/66 H 99 08/21/20 07:51 37 C 89 18 147/74 H 97 (1) Closed intertrochanteric fracture Encounter type: initial encounter Fracture alignment: displaced Laterality: right Qualified Code(s): S72.141A - Displaced intertrochanteric fracture of right femur, initial encounter for closed fracture
--- NOTE | 2020-08-21 13:46 | Fluoroscopy Report ---
FL hip RT 2-3V CLINICAL HISTORY: INTRAMEDULLARY KRISTA FEMUR COMPARISON STUDY: None. FLUOROSCOPY TIME: 2 minutes and 36 seconds.. FINDINGS: 5 fluoroscopic spot image of the right hip demonstrate internal fixation of an intertrochan teric fracture with a short proximal femoral intramedullary krista and interlocking femoral neck pin. Th e alignment is near-anatomic. The hardware is intact. IMPRESSION: Fluoroscopy provided for internal fixation of a right femoral intertrochanteric fracture. ACT 112: Negative or not required by law. Electronically signed by: Rad Boyle M.D. 08/21/2020 1:45 PM
--- NOTE | 2020-08-21 13:57 | Anesthesiology Progress Note ---
Date of Service August 21, 2020 Anesthesia Post Procedure Vital Signs Vital Signs: Temp Pulse Pulse Resp BP Pulse Ox 08/21/20 13:50 69 17 133/68 98 08/21/20 13:40 76 23 127/55 L 99 08/21/20 13:34 97.0 F L 75 20 108/87 99 08/21/20 10:50 98.6 F 76 20 166/66 H 99 08/21/20 07:51 98.6 F 89 18 147/74 H 97 08/20/20 23:24 98.8 F 66 17 114/73 94 08/20/20 20:14 99.3 F 94 H 18 118/72 97 08/20/20 15:43 99.3 F 94 H 18 131/77 97 Pain Intensity Right Upper Leg: Pain Intensity: 5 Transfer of Care Handoff Completed per policy Notes Mental Status: alert / awake / arousable and participated in evaluation Patient Amnestic to Procedure: Yes Nausea / Vomiting: adequately controlled Pain: adequately controlled Airway Patency, RR, SpO2: stable & adequate BP & HR: stable & adequate Hydration State: stable & adequate Neuraxial Anesthesia: was administered and sensory block is resolving Anesthetic Complications: no major complications apparent and Pt Satisfied with anesthetic care
[2020-08-21] MEDS ORDERED: NALOXONE HCL 0.4 MG/1 ML VIAL/CARP IV PRN (14:08)
[2020-08-21] MEDS: ceFAZolin 2000MG 2,000 MG/15 ML SYR IV SCH (17:30)
--- NOTE | 2020-08-21 18:09 | Hospitalist Progress Note ---
Date of Service August 21, 2020 Assessment & Plan (1) Fall: (2) Closed intertrochanteric fracture: RIGHT DISPLACED AND COMMINUTED INTERTROCHANTERIC HIP FRACTURE underwent surgery today POD# 0 recovering well post op 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 Xrays show osteopenic skeletal structures . Vitamin D level 24.4 pt started on vitamin D3 supplement daily, repeat level in 3 months, o Leukocytosis : WBC 13K -12K UTI : urine culture E coli started on Rocephin Acute blood loss anemia : HB drop noted 13-11 possible due to fracture of large bone /Rt femur fx s/p ORIF of rt hip today today follow H&H post procedure QTC lengthened 504ms, avoid QT prolonging agents Hx of breast CA: cont home med Letrozole /Fumera (3) Vitamin D deficiency: (4) Hyperglycemia: Admitting BSG 205-possibly due to stress related due to trauma , fall , hip fracture No prior history of diabetes, HbA1c 6.1 BSG has been in 120-140 pt is not diabetic , no anti diabetic meds needed (5) HTN (hypertension): Blood pressure stable Continue lisinopril (6) DVT prophylaxis: sc lovenox -ordered post op per Ortho team Follow-up: PCP Dr. Beaulieu upon discharge Disposition : PT /OT eval post op may need rehab , social service consulted for discharge planning Deb Tuttle (home) [phone] (cell) [phone] will be contacted to give updates. Admission and Anticipated Discharge Date Admission Date: August 20, 2020 Subjective Follow up visit for right hip fracture s/p fall : pt return from OR after ORIF of right hip pain at surgical site well controlled so far no fever or chills pt is awake and alert , comfortable finished her meal post op , no nausea stable vitals Review of Systems Review of Systems: All systems reviewed & are unremarkable except as noted in Subjective Physical Exam Physical Exam: Constitutional: Petite, female, WD/WN, vitals as above, NAD, sitting up in bed, pleasant, conversing easily Head: Normocephalic, Atraumatic Eyes: PERRL, conjunctivae normal, anicteric sclerae ENMT: external ear and nose normal, oropharynx normal Neck: trachea midline, no thyromegaly normal visual inspection Respiratory: normal respiratory effort, lungs clear to auscultation, no wheeze, rales, rhonchi. Normal insp/exp effort, no accessory muscle use Cardiovascular: RRR, no murmur, no edema Vessels: no JVD or carotid bruit Chest: normal inspection of chest Abdomen: normal bowel sounds, soft, nontender, no hepatosplenomegaly Musculoskeletal: no cyanosis or clubbing, s/p right hip surgery , surgical dressing present Skin: no rashes, warm and dry normal turgor Neurologic: PERRL, EOMI, accommodation nl, no face palsy, no dysarthria CN's II-XI intact bilaterally and moves all extremities Psychiatric: A+Ox3, euthymic affect Lymphatic: no cervical or axillary lymphadenopathy Results & Data Results & Data ([facility]) Vital Signs (Past 12 Hours) Vital Signs Temp Pulse Pulse Pulse Pulse Resp BP 08/21/20 17:18 37.0 C 84 18 129/79 08/21/20 16:21 36.7 C 82 16 111/69 08/21/20 15:27 81 17 107/68 08/21/20 14:40 36.5 C 81 18 105/62 08/21/20 14:10 36.8 C 65 16 130/79 08/21/20 14:00 36.6 C 63 19 137/61 08/21/20 13:50 69 17 133/68 08/21/20 13:40 76 23 127/55 L 08/21/20 13:34 36.1 C L 75 20 108/87 08/21/20 10:50 37 C 76 20 166/66 H 08/21/20 07:51 37 C 89 18 147/74 H Pulse Ox 08/21/20 17:18 94 08/21/20 16:21 93 08/21/20 15:27 99 08/21/20 14:40 99 08/21/20 14:10 99 08/21/20 14:00 100 08/21/20 13:50 98 08/21/20 13:40 99 08/21/20 13:34 99 08/21/20 10:50 99 08/21/20 07:51 97 (1) Fall Encounter type: initial encounter Qualified Code(s): W19.XXXA - Unspecified fall, initial encounter (2) Closed intertrochanteric fracture Encounter type: initial encounter Fracture alignment: displaced Laterality: right Qualified Code(s): S72.141A - Displaced intertrochanteric fracture of right femur, initial encounter for closed fracture
[2020-08-21] MEDS: ACETAMINOPHEN 325 MG TAB PO PRN (18:20)
--- NOTE | 2020-08-21 18:20 | XRay Report ---
XR hip RT min 2V CLINICAL HISTORY: Post-Operative implant position. Right hip fracture. COMPARISON STUDY: Right hip 08/20/2020. FINDINGS: Status post internal fixation of the right femoral intertrochanteric fracture with a proxim al femoral intramedullary anurag and interlocking femoral neck pin. The alignment is near-anatomic. The hardware is intact. Skin sunil are in place. IMPRESSION: Status post internal fixation of a right femoral intertrochanteric fracture. The hardwar e appears intact. ACT 112: Negative or not required by law. Electronically signed by: Rad Boyle M.D. 08/21/2020 6:19 PM
[2020-08-21] MEDS: DOCUSATE SODIUM/SENNA 50/8.6MG TAB PO SCH (20:07)
[2020-08-21] MEDS: oxyCODONE/ACETAMINOPHEN 5mg/325mg TAB PO PRN (20:09)
[2020-08-22] MEDS: ceFAZolin 2000MG 2,000 MG/15 ML SYR IV SCH (01:26)
[2020-08-22] MEDS: oxyCODONE/ACETAMINOPHEN 5mg/325mg TAB PO PRN ×2 (01:30→06:15)
--- NOTE | 2020-08-22 06:03 | Electrocardiogram Report ---
Test Reason : Blood Pressure : / mmHG Vent. Rate : 081 BPM Atrial Rate : 081 BPM P-R Int : 178 ms QRS Dur : 098 ms QT Int : 414 ms P-R-T Axes : 038 -89 082 degrees QTc Int : 480 ms Normal sinus rhythm Incomplete right bundle branch block Left anterior fascicular block Abnormal ECG When compared with ECG of 20-AUG-2020 08:59, No significant change Confirmed by Galdino Farrell ([id number]) on 08/22/2020 6:02:51 AM Referred By: REFERRED SELF Confirmed By:Galdino Farrell
[2020-08-22 06:24] LABS: Basophils # (auto) 0.02 K/uL (0-0.2); Basophils % (auto) 0.2 %; Eosinophils # (auto) 0.09 K/uL (0-0.5); Eosinophils % (auto) 0.8 %; Hematocrit (blood only) 32.1 % (37-47); Hemoglobin 10.5 g/dL (12.0-16.0); Immature Granulocytes # (auto) 0.02 K/uL (0.00-0.02); Immature Granulocytes % (auto) 0.2 %; Lymphocytes # (auto) 2.27 K/uL (1.2-3.4); Lymphocytes % (auto) 20.3 %; Mean Corpuscular Hemoglobin 29.7 pg (25-34); Mean Corpuscular Hgb Conc 32.7 g/dL (32-36); Mean Corpuscular Volume 90.7 fL (80-100); Mean Platelet Volume 9.9 fL (7.4-10.4); Monocytes # (auto) 2.06 K/uL (0.11-0.59); Monocytes % (auto) 18.4 %; Neutrophils # (auto) 6.72 K/uL (1.4-6.5); Neutrophils % (auto) 60.1 %; Platelet Count 292 K/uL (130-400); RDW Standard Deviation 43.6 fL (36.4-46.3); Red Blood Count 3.54 M/uL (4.2-5.4); White Blood Count 11.18 K/uL (4.8-10.8)
[2020-08-22 06:56] LABS: BUN Creatinine Ratio 41.1 (10-20); Calcium 8.8 mg/dl (8.5-10.1); Creatinine Clr Calc Pharmacy 73.8 ml/min; Est GFR (African American) 98.7; Est GFR (Non-African American) 85.2; Magnesium 2.3 mg/dl (1.8-2.4)
[2020-08-22] MEDS: CHOLECALCIFEROL 1,000 UNITS 25 MCG TAB PO SCH (09:00)
[2020-08-22] MEDS: ENOXAPARIN INJ 40 MG/0.4 ML SYR SQ SCH (09:00)
[2020-08-22] MEDS: lisinopril 2.5 MG TAB PO SCH (09:00)
[2020-08-22] MEDS: LETROZOLE 2.5 MG TAB PO SCH (09:01)
--- NOTE | 2020-08-22 09:45 | Orthopedic Progress Note ---
Date of Service August 22, 2020 Assessment & Plan (1) Closed intertrochanteric fracture: Postop day 1 status post right hip cephalomedullary nail -Ancef x24, then dc -DVT prophylaxis: SCDs, teds, Lovenox daily -Toe-touch weight-bear right lower extremity -PT/OT -A.m. labs, hgb 10.5 DC planning-patient resides at [facility] and will return there when medically stable. Admission and Anticipated Discharge Date Admission Date: August 20, 2020 Supervising Physician Co-Signing Physician Notes Patient seen and examined, agree with above assessment and plan .RLEPE s/p R hip TFN POD#1 ancef x 24 TTWB RLE Lovenox daily PT/OT Subjective Postop day 1 patient sitting up eating breakfast. No complaints currently. Denies shortness of breath, chest pain, lightheadedness. Pain controlled at rest. She states when she got up to the side of the bed earlier with the help of nursing care, she had moderate pain. She was given pain medication after getting back in bed and it has helped. Review of Systems Review of Systems: All systems reviewed & are unremarkable except as noted in HPI & below Constitutional: as per Subjective / HPI Physical Exam Physical Exam: Dressings are clean, dry, and intact. Thigh has some mild swelling, But is soft. Calves are soft and nontender. Neurovascular is intact. Toes are mobile. Results & Data ([facility]) Vital Signs (Past 12 Hours) Vital Signs Temp Pulse Resp BP Pulse Ox 08/22/20 07:26 36.8 C 67 16 135/75 96 08/22/20 03:46 36.9 C 78 16 151/84 H 93 08/21/20 23:01 37.0 C 91 H 16 134/70 96 Laboratory Results Laboratory Results WBC 11.18 K/uL (4.8-10.8) H 08/22/20 05:47 RBC 3.54 M/uL (4.2-5.4) L 08/22/20 05:47 Hgb 10.5 g/dL (12.0-16.0) L 08/22/20 05:47 Hct 32.1 % (37-47) L 08/22/20 05:47 MCV 90.7 fL (80-100) 08/22/20 05:47 MCH 29.7 pg (25-34) 08/22/20 05:47 MCHC 32.7 g/dL (32-36) 08/22/20 05:47 RDW Std Deviation 43.6 fL (36.4-46.3) 08/22/20 05:47 RDW Coeff of Kelsey 13.0 % (11.5-14.5) 08/22/20 05:47 Plt Count 292 K/uL (130-400) 08/22/20 05:47 MPV 9.9 fL (7.4-10.4) 08/22/20 05:47 Immature Gran % (Auto) 0.2 % 08/22/20 05:47 Neut % (Auto) 60.1 % 08/22/20 05:47 Lymph % (Auto) 20.3 % 08/22/20 05:47 [place] % (Auto) 18.4 % 08/22/20 05:47 Eos % (Auto) 0.8 % 08/22/20 05:47 Baso % (Auto) 0.2 % 08/22/20 05:47 Neut # (Auto) 6.72 K/uL (1.4-6.5) H 08/22/20 05:47 Lymph # (Auto) 2.27 K/uL (1.2-3.4) 08/22/20 05:47 [place] # (Auto) 2.06 K/uL (0.11-0.59) H 08/22/20 05:47 Eos # (Auto) 0.09 K/uL (0-0.5) 08/22/20 05:47 Baso # (Auto) 0.02 K/uL (0-0.2) 08/22/20 05:47 Immature Gran # (Auto) 0.02 K/uL (0.00-0.02) 08/22/20 05:47 PT 11.2 Seconds (9.0-12.0) 08/20/20 08:45 INR 1.1 (0.9-1.1) 08/20/20 08:45 APTT 23.6 Seconds (21.0-31.0) 08/20/20 08:45 PTT Ratio 0.9 08/20/20 08:45 Sodium 138 mmol/L (136-145) 08/22/20 05:47 Potassium 4.0 mmol/L (3.5-5.1) 08/22/20 05:47 Chloride 106 mmol/L (98-107) 08/22/20 05:47 Carbon Dioxide 26 mmol/L (21-32) 08/22/20 05:47 Anion Gap 6.0 (3-11) 08/22/20 05:47 BUN 25 mg/dl (7-18) H 08/22/20 05:47 Creatinine 0.62 mg/dl (0.6-1.2) 08/22/20 05:47 Est Cr Clr Drug Dosing 73.8 ml/min 08/22/20 05:47 Est GFR ( Amer) 98.7 08/22/20 05:47 Est GFR (Non-Af Amer) 85.2 08/22/20 05:47 BUN/Creatinine Ratio 41.1 (10-20) H 08/22/20 05:47 Glucose 115 mg/dl (70-99) H 08/22/20 05:47 POC Glucose 166 mg/dl (70-99) H 08/22/20 08:17 Estimat Average Glucose 128 mg/dl 08/20/20 08:45 Hemoglobin A1c 6.1 % (4.5-5.6) H 08/20/20 08:45 Calcium 8.8 mg/dl (8.5-10.1) 08/22/20 05:47 Magnesium 2.3 mg/dl (1.8-2.4) 08/22/20 05:47 25-OH Vitamin D Total 24.4 ng/ml (30-100) L 08/20/20 08:52 Urine Color Yellow 08/20/20 18:48 Urine Appearance Turbid (Clear) A 08/20/20 18:48 Urine pH 5.0 (4.5-7.5) 08/20/20 18:48 Ur Specific [place] 1.029 (1.000-1.030) 08/20/20 18:48 Urine Protein Negative (Negative) 08/20/20 18:48 Urine Glucose (UA) Negative (Negative) 08/20/20 18:48 Urine Ketones Trace (Negative) H 08/20/20 18:48 Urine Blood Negative (Negative) 08/20/20 18:48 Urine Nitrite Negative (Negative) 08/20/20 18:48 Urine Bilirubin Negative (Negative) 08/20/20 18:48 Urine Urobilinogen Negative (Negative) 08/20/20 18:48 Ur Leukocyte Esterase Negative (Negative) 08/20/20 18:48 Urine WBC (Auto) 5-10 /hpf (0-5) H 08/20/20 18:48 Urine RBC (Auto) 0-4 /hpf (0-4) 08/20/20 18:48 U Hyaline Cast (Auto) 5-10 /lpf (0-5) H 08/20/20 18:48 U Epithel Cells (Auto) >30 /lpf (0-5) H 08/20/20 18:48 Urine Bacteria (Auto) Negative (Negative) 08/20/20 18:48 Ur Renal Epithelial Cell Not Reportable 08/20/20 18:48 Amorphous Sediment Present (None Prsent) A 08/20/20 18:48 COVID-19 [facility] [place] 08/20/20 08:50 SARS-CoV-2, RNA, NAAT NEGATIVE (NEGATIVE) 08/20/20 08:50 Blood Type A Negative 08/20/20 08:45 Antibody Screen NEGATIVE 08/20/20 08:45 (1) Closed intertrochanteric fracture Encounter type: initial encounter Fracture alignment: displaced Laterality: right Qualified Code(s): S72.141A - Displaced intertrochanteric fracture of right femur, initial encounter for closed fracture
[2020-08-22] MEDS: cefTRIAXone SODIUM 2,000 MG in DEXTROSE 5% 50 ML IV SCH ×3 (12:22→16:47)
--- NOTE | 2020-08-22 20:05 | Hospitalist Progress Note ---
Date of Service August 22, 2020 Assessment & Plan (1) Fall: (2) Closed intertrochanteric fracture: RIGHT DISPLACED AND COMMINUTED INTERTROCHANTERIC HIP FRACTURE s/p ORIF of rt hip on 08/21/20 POD# 1 recovering well post op /appreciate input from Ortho team toe touch wt bearing on rt lower ext PT eval appreciated , pt needs max assist for transfer , recommend short term rehab 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 Xrays show osteopenic skeletal structures . Vitamin D level 24.4 pt started on vitamin D3 supplement daily, repeat level in 3 months, leukocytosis : due to UTI improving WBC 13K -12K-11K no fever or chils UTI: urine culture E coli on Rocephin Acute blood loss anemia : HB drop noted 30-05-10 BP stable , no hypotension , dizzy spell or lightheadedness , possible due to fracture of large bone /Rt femur fx s/p ORIF of rt hip follow H&H in am QTC lengthened 504ms, avoid QT prolonging agents Hx of breast CA: cont home med Letrozole /Fumera (3) Vitamin D deficiency: Vitamin D level 24.4 Start vitamin D3 5000 units daily Would repeat as outpatient in 3 months (4) Hyperglycemia: Admitting BSG 205-possibly due to stress related due to trauma , fall , hip fracture No prior history of diabetes, HbA1c 6.1 BSG has been in 120-140 pt is not diabetic , no anti diabetic meds needed (5) HTN (hypertension): Blood pressure stable Continue lisinopril (6) DVT prophylaxis: sc lovenox -ordered post op per Ortho team Follow-up: PCP Dr. Beaulieu upon discharge Disposition : PT /OT eval post op may need rehab , social service consulted for discharge planning referral made to SNF at [facility] Deb Tuttle (home) [phone] (cell) [phone] will be contacted to give updates. Admission and Anticipated Discharge Date Admission Date: August 20, 2020 Subjective Follow up visit for rt hip f/x after sustaining a fall , s/p ORIF POD #1 : pt reports feeling better pain at rt hip surgical site minimum at rest , experience more discomfort with movement , change of position Denies shortness of breath, chest pain, lightheadedness. no fever or chills Review of Systems Review of Systems: All systems reviewed & are unremarkable except as noted in Subjective Physical Exam Constitutional: WD/WN, vitals as above Eyes: PERRL, conjunctivae normal, anicteric sclerae ENMT: external ear and nose normal, oropharynx normal Neck: trachea midline, no thyromegaly Respiratory: normal respiratory effort, lungs clear to auscultation Cardiovascular: RRR, no murmur, no edema Gastrointestinal (Abdomen): normal bowel sounds, soft, nontender, no hepatosplenomegaly Musculoskeletal: Extremities: + lower extremity abnormal to inspection (right hip surgical incision present , healing well ) Right Skin: no rashes, warm and dry Neurologic: PERRL, EOMI, accommodation nl, no face palsy, no dysarthria Psychiatric: A+Ox3, euthymic affect Results & Data Results & Data ([facility]) Vital Signs (Past 12 Hours) Vital Signs Temp Pulse Resp BP Pulse Ox 08/22/20 16:12 37.2 C 81 18 148/68 H 96 (1) Closed intertrochanteric fracture Encounter type: initial encounter Fracture alignment: displaced Laterality: right Qualified Code(s): S72.141A - Displaced intertrochanteric fracture of right femur, initial encounter for closed fracture (2) Fall Encounter type: initial encounter Qualified Code(s): W19.XXXA - Unspecified fall, initial encounter
[2020-08-22] MEDS: DOCUSATE SODIUM/SENNA 50/8.6MG TAB PO SCH (21:01)
[2020-08-23 07:06] LABS: Hematocrit (blood only) 28.3 % (37-47); Hemoglobin 9.7 g/dL (12.0-16.0); Mean Corpuscular Hgb Conc 34.3 g/dL (32-36); Mean Corpuscular Volume 87.6 fL (80-100); Mean Platelet Volume 9.6 fL (7.4-10.4); Platelet Count 292 K/uL (130-400); RDW Coefficient of Variation 12.9 % (11.5-14.5); RDW Standard Deviation 41.7 fL (36.4-46.3); Red Blood Count 3.23 M/uL (4.2-5.4); White Blood Count 11.33 K/uL (4.8-10.8)
[2020-08-23 07:23] LABS: Creatinine Clr Calc Pharmacy 93.4 ml/min; Est GFR (African American) 106.6
--- NOTE | 2020-08-23 08:06 | Communication Note ---
Date of Service: August 23, 2020 AM labs reviewed : leukocytosis remains stable 11 K hb drop noted due to acute blood loss anemia : 13-10-9.7 no indication for prbc transfusion ( current guideline : PRBC transfusion for HB < 7 or higher level if pt is symptomatic -hypotension , dizzy spell , tachycardia ) repeat CBC in am UTI: urine culture E coli resistant to amoxicillin /ampicillin sensitive to Rocephin /Cipro was on IV Rocephin changed to PO Cipro 500 mg BID needs total 5-7 days tx , Rachell Vieyra MD
--- NOTE | 2020-08-23 08:13 | Communication Note ---
Date of Service: August 23, 2020 AM labs reviewed : stable leukocytosis urine culture Ecoli abx changed to PO cipro vitals stable disposition : referral made for SNF at [facility] , tentative DC on tuesday Rachell Vieyra MD
[2020-08-23] MEDS: ADVANCED PROBIOTIC 1250 MG CAPSULE PO SCH (08:55)
[2020-08-23] MEDS: lisinopril 2.5 MG TAB PO SCH (08:56)
[2020-08-23] MEDS: LETROZOLE 2.5 MG TAB PO SCH (08:56)
[2020-08-23] MEDS: CHOLECALCIFEROL 1,000 UNITS 25 MCG TAB PO SCH (08:57)
[2020-08-23] MEDS: ENOXAPARIN INJ 40 MG/0.4 ML SYR SQ SCH (08:58)
[2020-08-23] MEDS: FERROUS SULFATE 325 MG TAB PO SCH ×2 (09:06→18:02)
[2020-08-23] MEDS: CIPROFLOXACIN 500 MG TAB PO SCH ×2 (09:07→20:22)
--- NOTE | 2020-08-23 09:51 | Orthopedic Progress Note ---
Date of Service August 23, 2020 Assessment & Plan (1) Closed intertrochanteric fracture: Postop day 2 status post right hip cephalomedullary nail -Ancef x24, then dc -DVT prophylaxis: SCDs, teds, Lovenox daily -Toe-touch weight-bear right lower extremity -PT/OT -A.m. labs - Hgb 9.7 this AM DC planning-patient resides at [facility] and will return there when medically stable. Admission and Anticipated Discharge Date Admission Date: August 20, 2020 Supervising Physician Co-Signing Physician Notes Patient seen and examined. I agree with SONJA Keita's note as above. Pain well controlled. Thigh is soft and compressible. Dressings clean and dry. Motor and sensory function intact distally. Remain toe-touch weightbearing. Plan for discharge Tuesday. Subjective Doing well today. States the pain in the right hip is controlled. She feels she is having a better day today. She has been participating in PT. States she plans to head back to [facility] to the snf facility/rehab area upon discharge. Physical Exam Constitutional: WD/WN, vitals as above Musculoskeletal: Hip: + surgical incision (Right hip dressings clean/dry/intact. Right thigh soft.); no skin erythema and no ecchymosis Skin: no rashes, warm and dry Neurologic: normal touch/pain/proprioception (Right foot active dorsiflexion/plantarflexion intact) Psychiatric: A+Ox3, euthymic affect (Sitting in bed eating breakfast. Appears comfortable.) Speech: normal rate/rhythm/volume of speech Results & Data ([facility]) Vital Signs (Past 12 Hours) Vital Signs Temp Pulse Resp BP Pulse Ox 08/23/20 08:25 37.3 C 79 16 121/69 99 08/23/20 02:15 37.1 C 82 15 155/71 H 96 08/22/20 23:24 37.1 C 77 15 137/67 96 (1) Closed intertrochanteric fracture Encounter type: initial encounter Fracture alignment: displaced Laterality: right Qualified Code(s): S72.141A - Displaced intertrochanteric fracture of right femur, initial encounter for closed fracture
[2020-08-23] MEDS: oxyCODONE/ACETAMINOPHEN 5mg/325mg TAB PO PRN (19:16)
--- NOTE | 2020-08-23 19:29 | Hospitalist Progress Note ---
Date of Service August 23, 2020 Assessment & Plan (1) Fall: (2) Closed intertrochanteric fracture: RIGHT DISPLACED AND COMMINUTED INTERTROCHANTERIC HIP FRACTURE s/p ORIF of rt hip on 08/21/20 POD# 2 recovering well post op /appreciate input from Ortho team toe touch wt bearing on rt lower ext PT eval appreciated , pt needs max assist for transfer , recommend short term rehab 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 Xrays show osteopenic skeletal structures . Vitamin D level 24.4 pt started on vitamin D3 supplement daily, repeat level in 3 months, leukocytosis : stable leukocytosis urine culture Ecoli abx changed to PO cipro UTI: urine culture E coli PO Cipro ordered needs total 5 days tx Acute blood loss anemia : hb drop noted due to acute blood loss anemia : 13-10-9.7/post op status no indication for prbc transfusion ( current guideline : PRBC transfusion for HB < 7 or higher level if pt is symptomatic -hypotension , dizzy spell , tachycardia ) repeat CBC in am QTC lengthened 504ms, avoid QT prolonging agents Hx of breast CA: cont home med Letrozole /Fumera (3) Vitamin D deficiency: Vitamin D level 24.4 Started on vitamin D3 5000 units daily Would repeat as outpatient in 3 months (4) Hyperglycemia: Admitting BSG 205-possibly due to stress related due to trauma , fall , hip fracture No prior history of diabetes, HbA1c 6.1 BSG has been in 120-140 pt is not diabetic , no anti diabetic meds needed (5) HTN (hypertension): Blood pressure stable Continue lisinopril (6) DVT prophylaxis: sc lovenox -ordered post op per Ortho team Follow-up: PCP Dr. Beaulieu upon discharge Disposition : PT /OT eval post op may need rehab , social service consulted for discharge planning referral made to SNF at [facility] plan is to transfer pt to SNF on Tuesday Daughter Marry (home) [phone] (cell) [phone] will be contacted to give updates. Admission and Anticipated Discharge Date Admission Date: August 20, 2020 Subjective Follow up visit for Right hip fracture after Fall , S/p ORIF : Had an uneventful day able to participate in PT/OT . States the pain in the right hip is controlled. no fever or chills , no SOB or cough no GI or issues . States she plans to go skilled rehab in [facility] . Review of Systems Review of Systems: All systems reviewed & are unremarkable except as noted in Subjective Physical Exam Constitutional: WD/WN, vitals as above Eyes: + anicteric sclerae ENMT: external ear and nose normal, oropharynx normal Neck: trachea midline, no thyromegaly Respiratory: normal respiratory effort, lungs clear to auscultation Cardiovascular: RRR, no murmur, no edema Gastrointestinal (Abdomen): Percussion/Palpation: abdomen soft; abdomen nontender Musculoskeletal: no cyanosis or clubbing, extremities motor strength 5/5 Skin: no rashes, warm and dry Neurologic: PERRL, EOMI, accommodation nl, no face palsy, no dysarthria Psychiatric: A+Ox3, euthymic affect Results & Data Results & Data ([facility]) Vital Signs (Past 12 Hours) Vital Signs Temp Pulse Resp BP Pulse Ox 08/23/20 15:30 37.3 C 82 16 163/69 H 95 08/23/20 08:25 37.3 C 79 16 121/69 99 (1) Closed intertrochanteric fracture Encounter type: initial encounter Fracture alignment: displaced Laterality: right Qualified Code(s): S72.141A - Displaced intertrochanteric fracture of right femur, initial encounter for closed fracture (2) Fall Encounter type: initial encounter Qualified Code(s): W19.XXXA - Unspecified fall, initial encounter
[2020-08-23] MEDS: DOCUSATE SODIUM/SENNA 50/8.6MG TAB PO SCH (20:22)
[2020-08-24 06:06] LABS: Hematocrit (blood only) 27.5 % (37-47); Hemoglobin 9.2 g/dL (12.0-16.0); Mean Corpuscular Hemoglobin 30.2 pg (25-34); Mean Corpuscular Hgb Conc 33.5 g/dL (32-36); Mean Corpuscular Volume 90.2 fL (80-100); Mean Platelet Volume 9.2 fL (7.4-10.4); Platelet Count 301 K/uL (130-400); RDW Coefficient of Variation 13.1 % (11.5-14.5); RDW Standard Deviation 42.4 fL (36.4-46.3); Red Blood Count 3.05 M/uL (4.2-5.4); White Blood Count 7.85 K/uL (4.8-10.8)
[2020-08-24 06:57] LABS: Est GFR (African American) 104.6; Est GFR (Non-African American) 90.2
[2020-08-24] MEDS: FERROUS SULFATE 325 MG TAB PO SCH ×2 (07:55→18:14)
[2020-08-24] MEDS: oxyCODONE/ACETAMINOPHEN 5mg/325mg TAB PO PRN ×2 (07:55→13:39)
[2020-08-24] MEDS: ENOXAPARIN INJ 40 MG/0.4 ML SYR SQ SCH (08:02)
[2020-08-24] MEDS: CHOLECALCIFEROL 1,000 UNITS 25 MCG TAB PO SCH (08:02)
[2020-08-24] MEDS: CIPROFLOXACIN 500 MG TAB PO SCH ×2 (08:02→19:26)
[2020-08-24] MEDS: lisinopril 2.5 MG TAB PO SCH (08:03)
[2020-08-24] MEDS: LETROZOLE 2.5 MG TAB PO SCH (08:03)
[2020-08-24] MEDS: ADVANCED PROBIOTIC 1250 MG CAPSULE PO SCH (08:03)
--- NOTE | 2020-08-24 10:36 | Orthopedic Progress Note ---
Date of Service August 24, 2020 Assessment & Plan (1) Closed intertrochanteric fracture: Postop day 3 status post right hip cephalomedullary nail -Ancef x24, then dc -DVT prophylaxis: SCDs, teds, Lovenox daily -Toe-touch weight-bear right lower extremity -PT/OT -A.m. labs - Hgb 9.2 this AM DC planning-patient resides at [facility] and will return there to their [facility] facility/rehabilitation when medically stable. Ortho to sign off at this time. Follow-up with Dr. Donovan approximately 2 weeks postop. Admission and Anticipated Discharge Date Admission Date: August 20, 2020 Subjective Pain controlled in the right hip today. No other complaints with the right hip. Denies chest pain, shortness of breath, lightheadedness. Planning on a return to [facility] upon discharge. Physical Exam Constitutional: WD/WN, vitals as above Musculoskeletal: Hip: + surgical incision (Right hip dressings clean/dry/intact. Right thigh soft.); no skin erythema and no ecchymosis Mild swelling of the right thigh but the thigh is not tense. No ecchymosis or erythema noted. No significant tenderness along the thigh. Skin: no rashes, warm and dry Neurologic: normal touch/pain/proprioception (Right foot active dorsiflexion/plantarflexion intact) Psychiatric: A+Ox3, euthymic affect (Sitting in bed eating breakfast. Appears comfortable.) Speech: normal rate/rhythm/volume of speech Results & Data ([facility]) Vital Signs (Past 12 Hours) Vital Signs Temp Pulse Resp BP Pulse Ox 08/24/20 06:52 37 C 80 16 158/67 H 99 08/23/20 23:20 36.9 C 84 18 128/70 97 (1) Closed intertrochanteric fracture Encounter type: initial encounter Fracture alignment: displaced Laterality: right Qualified Code(s): S72.141A - Displaced intertrochanteric fracture of right femur, initial encounter for closed fracture
--- NOTE | 2020-08-24 18:08 | Hospitalist Progress Note ---
Date of Service August 24, 2020 Assessment & Plan (1) Fall: (2) Closed intertrochanteric fracture: Urinary retention : post void urine > 200 ml required multiple times ( ~3 ) straight cath since yesterday ordered to insert garcia catheter voiding trial in am RIGHT DISPLACED AND COMMINUTED INTERTROCHANTERIC HIP FRACTURE s/p ORIF of rt hip on 08/21/20 POD# 3 recovering well post op /appreciate input from Ortho team toe touch wt bearing on rt lower ext PT eval appreciated , pt needs max assist for transfer , recommend short term rehab 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 Xrays show osteopenic skeletal structures . Vitamin D level 24.4 pt started on vitamin D3 supplement daily, repeat level in 3 months, leukocytosis : stable leukocytosis urine culture Ecoli abx changed to PO cipro UTI: urine culture E coli PO Cipro ordered needs total 5 days tx Acute blood loss anemia : hb drop noted due to acute blood loss anemia : 13-10-9.7/post op status no indication for prbc transfusion ( current guideline : PRBC transfusion for HB < 7 or higher level if pt is symptomatic -hypotension , dizzy spell , tachycardia ) hb remains stable at 9.2 ordered Iron supplement QTC lengthened 504ms, avoid QT prolonging agents Hx of breast CA: cont home med Letrozole /Fumera (3) Vitamin D deficiency: Vitamin D level 24.4 Started on vitamin D3 5000 units daily Would repeat as outpatient in 3 months (4) Hyperglycemia: Admitting BSG 205-possibly due to stress related due to trauma , fall , hip fracture No prior history of diabetes, HbA1c 6.1 BSG has been in 120-140 pt is not diabetic , no anti diabetic meds needed (5) HTN (hypertension): Blood pressure stable Continue lisinopril (6) DVT prophylaxis: sc lovenox -ordered post op per Ortho team Follow-up: PCP Dr. Beaulieu upon discharge Disposition : PT /OT eval post op may need rehab , social service consulted for discharge planning referral made to SNF at [facility] plan is to transfer pt to SNF on Tuesday Daughter Marry (home) [phone] (cell) [phone] will be contacted to give updates. Admission and Anticipated Discharge Date Admission Date: August 20, 2020 Subjective Follow up visit for Right hip fracture after Fall , S/p ORIF : Had an uneventful day able to participate in PT/OT . States the pain in the right hip is controlled. no fever or chills , no SOB or cough developed urinary retention , unable to void , requiring garcia catheter placement pt is upset about it , thinks does not feel she need to have a catheter placed counseling provided .temporary urinary retention can happen post op Garcia will be taken out in am for voiding trial Review of Systems Review of Systems: All systems reviewed & are unremarkable except as noted in Subjective Physical Exam Physical Exam: Constitutional: Petite, female, WD/WN, vitals as above, NAD, sitting up in bed, pleasant, conversing easily Head: Normocephalic, Atraumatic Eyes: PERRL, conjunctivae normal, anicteric sclerae ENMT: external ear and nose normal, oropharynx normal Neck: trachea midline, no thyromegaly normal visual inspection Respiratory: normal respiratory effort, lungs clear to auscultation, no wheeze, rales, rhonchi. Normal insp/exp effort, no accessory muscle use Cardiovascular: RRR, no murmur, no edema Vessels: no JVD or carotid bruit Chest: normal inspection of chest Abdomen: normal bowel sounds, soft, nontender, no hepatosplenomegaly Musculoskeletal: no cyanosis or clubbing, s/p right hip surgery , surgical dressing present Skin: no rashes, warm and dry normal turgor Neurologic: PERRL, EOMI, accommodation nl, no face palsy, no dysarthria CN's II-XI intact bilaterally and moves all extremities Psychiatric: A+Ox3, euthymic affect Lymphatic: no cervical or axillary lymphadenopathy Constitutional: WD/WN, vitals as above Eyes: PERRL, conjunctivae normal, anicteric sclerae + anicteric sclerae ENMT: external ear and nose normal, oropharynx normal Neck: trachea midline, no thyromegaly Respiratory: normal respiratory effort, lungs clear to auscultation Cardiovascular: RRR, no murmur, no edema Gastrointestinal (Abdomen): normal bowel sounds, soft, nontender, no hepatosplenomegaly Percussion/Palpation: abdomen soft; abdomen nontender Musculoskeletal: no cyanosis or clubbing, extremities motor strength 5/5 Extremities: + lower extremity abnormal to inspection (right hip surgical incision present , healing well ) Right Skin: no rashes, warm and dry Neurologic: PERRL, EOMI, accommodation nl, no face palsy, no dysarthria Psychiatric: A+Ox3, euthymic affect Results & Data Results & Data ([facility]) Vital Signs (Past 12 Hours) Vital Signs Temp Pulse Resp BP Pulse Ox 08/24/20 15:27 37.3 C 74 16 131/67 96 08/24/20 06:52 37 C 80 16 158/67 H 99 (1) Closed intertrochanteric fracture Encounter type: initial encounter Fracture alignment: displaced Laterality: right Qualified Code(s): S72.141A - Displaced intertrochanteric fracture of right femur, initial encounter for closed fracture (2) Fall Encounter type: initial encounter Qualified Code(s): W19.XXXA - Unspecified fall, initial encounter
[2020-08-24] MEDS: DOCUSATE SODIUM/SENNA 50/8.6MG TAB PO SCH (19:26)
[2020-08-25 06:20] LABS: Hematocrit (blood only) 27.6 % (37-47); Hemoglobin 9.3 g/dL (12.0-16.0)
[2020-08-25 06:49] LABS: Creatinine Clr Calc Pharmacy 91.5 ml/min; Est GFR (African American) 105.9; Est GFR (Non-African American) 91.4
[2020-08-25] MEDS: FERROUS SULFATE 325 MG TAB PO SCH ×2 (08:03→16:07)
[2020-08-25] MEDS: lisinopril 2.5 MG TAB PO SCH (08:03)
[2020-08-25] MEDS: ADVANCED PROBIOTIC 1250 MG CAPSULE PO SCH (08:04)
[2020-08-25] MEDS: CIPROFLOXACIN 500 MG TAB PO SCH ×2 (08:04→19:45)
[2020-08-25] MEDS: CHOLECALCIFEROL 1,000 UNITS 25 MCG TAB PO SCH (08:05)
[2020-08-25] MEDS: ENOXAPARIN INJ 40 MG/0.4 ML SYR SQ SCH (08:05)
[2020-08-25] MEDS: LETROZOLE 2.5 MG TAB PO SCH (08:07)
--- NOTE | 2020-08-25 10:07 | Urology Consultation ---
Date of Consultation August 25, 2020 Assessment & Plan (1) Acute urinary retention: 80yo F admitted post fall who is s/p ORIF right hip fracture on 08/21 now with acute urinary retention and UTI -Urinary retention likely multifactorial including anesthesia, decreased mobility, and UTI -She is afebrile, creatinine stable -Urine culture with E.coli, on oral Cipro- Repeat urine culture pending -Patient has required multiple straight catheterizations for PVR's >200 ml -Garcia catheter inserted yesterday and removed this morning for voiding trial -Continue to monitor for patients ability to void spontaneously -Bladder scan and straight cath as needed for volumes >200-300 ml -Would consider re-insertion of Garcia catheter if requiring multiple straight catheterizations and would keep catheter for 7-10 days -Encourage ambulation w/assistance -Continue supportive care and antibiotics per primary team -Will arrange outpatient follow-up with urology service and voiding trial if catheter not removed during hospital stay -Thank you for allowing us to participate in the acute care of Mrs. Patel. Please reconsult us with additional questions, concerns or changes in patient status. History of Present Illness Reason for Consultation: Urinary retention Attending Physician: Rachell Vieyra MD History of Present Illness The patient is an 80-year-old female who presented to [facility] ER on 08/20 post mechanical fall at home and was subsequently admitted with a right hip fracture. She is s/p ORIF right hip on 08/[address] Donovan. PMHx includes right breast cancer s/p mastectomy and radiation in 2013, hypertension, and pre-diabetes Urology consulted for urinary retention. A 16Fr garcia catheter was inserted at time of admission on 08/20. The catheter was then d/c'd on 08/22. However, the patient had difficulty voiding and required multiple straight catheterizations. A garcia catheter was then reinserted on 08/24 , but appears to have been removed earlier this morning (08/25) for a voiding trial. Chart review: Afebrile Wbc 7.85, Hgb 9.3, Cr 0.50. Urine culture 08/21 - E.coli, Continues on oral Cipro Repeat urine culture 08/24 - pending Patient examined at bedside this AM. Awake, sitting up in chair on arrival. She states that her Garcia catheter was removed earlier this morning. She has not voided since the catheter was removed. Denies any back, flank, or suprapubic pain at this time. Denies hematuria/dysuria. Denies fevers or chills. Tolerating diet, no nausea or vomiting. Ambulating w/assistance. Prior to this hospital admission, she denies any bothersome urinary issues. She reports some urinary urgency and occasional incontinence/leakage, but this is not overly bothersome. She gets up x1/night, which is when she fell. Denies hesitancy. Stream good. Feels she was emptying her bladder well. Denies hx of UTI. Denies personal and family hx of urological issues. She has not seen uro logy in the past. Offers no additional complaints today Allergies Allergy/AdvReac Type Severity Reaction Status Date / Time amoxicillin Allergy Rash Unverified 08/20/20 08:16 latex Allergy Rash Verified 08/20/20 16:24 Home Medications Medication Instructions Recorded Confirmed Type buspirone 5 mg PO BID PRN 08/20/20 08/20/20 History letrozole 5 mg PO DAILY 08/20/20 08/20/20 History lisinopril 2.5 mg PO DAILY 08/20/20 08/20/20 History Patient History Medical History Anxiety History of breast cancer HTN (hypertension) Pre-diabetes Surgical History History of mastectomy Right - 2013 Family History Mother , 92 Old age Father Sudden Sister Lymphoma Leukemia Social History Smoking Status: Never smoker Second Hand Exposure: No; Do You Dip or Chew Tobacco: No; Hx Alcohol Use: No Hx Substance Use: No Preferred Language: Marshallese Communication Ability: Effective Beliefs That Will Affect Care: Jehov[employer] Witness marital status: Current Living Situation: Alone Current Living Situation Comment: [facility] apartment. Feels Safe at Home: Yes Safety Concerns: Feels Safe At This Time Assistive Devices: Walker Review of Systems Constitutional: as per Subjective / HPI Respiratory: no problem reported Cardiovascular: no chest pain and no dyspnea Gastrointestinal: as per Subjective / HPI Genitourinary: as per Subjective / HPI Musculoskeletal: as per Subjective / HPI Integumentary: no rash, no pruritus and no urticaria Neurologic: no dizziness and no abnormal speech Psychiatric: no irritability and no confusion Hematologic / Lymphatic: no problem reported Allergy / Immunological: no lip swelling and no tongue swelling Physical Exam Constitutional: cooperative; no acute distress Respiratory: normal respiratory effort and able to speak in complete sentences Cardiovascular: Extremities: no calf tenderness Gastrointestinal (Abdomen): Percussion/Palpation: abdomen soft; abdomen nontender and no guarding Musculoskeletal: Head/Neck/Chest: normocephalic Skin: Warm and dry, No visible rashes or lesions. Right hip surgical dressing intact. Neurologic: awake; not confused Psychiatric: Orientation: alert and oriented x 3 Results & Data ([facility]) Vital Signs (Past 12 Hours) Vital Signs Temp Pulse Resp BP Pulse Ox 08/25/20 07:54 37.2 C 75 18 146/71 H 97 08/24/20 22:08 36.9 C 75 16 144/74 H 96 PG Care Time/CCT Total # of Minutes Spent Total Time Spent with Patient: Total time spent is greater than 50% in coordination of care (as documented) at patient's floor/unit and/or counseling patient: Coding Level of Care Code 61708 Initial Inpt Care Lvl 3 Diagnoses Acute urinary retention R33.8
--- NOTE | 2020-08-25 18:22 | Communication Note ---
Date of Service: August 25, 2020 waiting for rehab placement insurance approval for rehab not available to day . pt failed voiding trial , bladder scan reveal > 400 ml urine without any urge for urinating per pt Fletcher catheter placed again appreciate input from Urology put for follow up in 2-3 weeks for Voiding trial pt will be discharged to rehab with Fletcher catheter Called pt's Daughter Marry -left message with update Rachell Vieyra MD
[2020-08-25] MEDS: DOCUSATE SODIUM/SENNA 50/8.6MG TAB PO SCH (19:45)
--- NOTE | 2020-08-25 21:11 | Hospitalist Progress Note ---
Date of Service August 25, 2020 Assessment & Plan (1) Fall: (2) Closed intertrochanteric fracture: Urinary retention : post void urine > 200 ml required multiple times ( ~3 ) straight cath since yesterday ordered to insert garcia catheter voiding trial in am pt failed voiding trial , bladder scan reveal > 400 ml urine without any urge for urinating per pt Garcia catheter placed again appreciate input from Urology put for follow up in 2-3 weeks for Voiding trial pt will be discharged to rehab with Garcia catheter Called pt's Daughter Marry -left message with update RIGHT DISPLACED AND COMMINUTED INTERTROCHANTERIC HIP FRACTURE s/p ORIF of rt hip on 08/21/20 POD# 3 recovering well post op /appreciate input from Ortho team toe touch wt bearing on rt lower ext PT eval appreciated , pt needs max assist for transfer , recommend short term rehab 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 Xrays show osteopenic skeletal structures . Vitamin D level 24.4 pt started on vitamin D3 supplement daily, repeat level in 3 months, leukocytosis : resolved urine culture Ecoli abx changed to PO cipro UTI: urine culture E coli PO Cipro ordered needs total 5 days tx Acute blood loss anemia : hb drop noted due to acute blood loss anemia : 13-10-9.7/post op status no indication for prbc transfusion ( current guideline : PRBC transfusion for HB < 7 or higher level if pt is symptomatic -hypotension , dizzy spell , tachycardia ) hb remains stable at 9.2 ordered Iron supplement QTC lengthened 504ms, avoid QT prolonging agents Hx of breast CA: cont home med Letrozole /Fumera (3) Vitamin D deficiency: Vitamin D level 24.4 Started on vitamin D3 5000 units daily Would repeat as outpatient in 3 months (4) Hyperglycemia: Admitting BSG 205-possibly due to stress related due to trauma , fall , hip fracture No prior history of diabetes, HbA1c 6.1 BSG has been in 120-140 pt is not diabetic , no anti diabetic meds needed (5) HTN (hypertension): Blood pressure stable Continue lisinopril (6) DVT prophylaxis: sc lovenox -ordered post op per Ortho team Follow-up: PCP Dr. Beaulieu upon discharge Disposition : waiting for rehab placement insurance approval for rehab not available today . Daughter Marry (home) [phone] (cell) [phone] Called Daughter left message with update Admission and Anticipated Discharge Date Admission Date: August 20, 2020 Physical Exam Constitutional: WD/WN, vitals as above Eyes: PERRL, conjunctivae normal, anicteric sclerae + anicteric sclerae ENMT: external ear and nose normal, oropharynx normal Neck: trachea midline, no thyromegaly Respiratory: normal respiratory effort, lungs clear to auscultation Cardiovascular: RRR, no murmur, no edema Gastrointestinal (Abdomen): normal bowel sounds, soft, nontender, no hepatosplenomegaly Percussion/Palpation: abdomen soft; abdomen nontender Musculoskeletal: no cyanosis or clubbing, extremities motor strength 5/5 Extremities: + lower extremity abnormal to inspection (right hip surgical incision present , healing well ) Right Skin: no rashes, warm and dry Neurologic: PERRL, EOMI, accommodation nl, no face palsy, no dysarthria Psychiatric: A+Ox3, euthymic affect Results & Data Results & Data ([facility]) Vital Signs (Past 12 Hours) Vital Signs Temp Pulse Resp BP Pulse Ox 08/25/20 15:56 37.5 C 86 18 144/75 H 94 (1) Fall Encounter type: initial encounter Qualified Code(s): W19.XXXA - Unspecified fall, initial encounter (2) Closed intertrochanteric fracture Encounter type: initial encounter Fracture alignment: displaced Laterality: right Qualified Code(s): S72.141A - Displaced intertrochanteric fracture of right femur, initial encounter for closed fracture
[2020-08-26] MEDS: CIPROFLOXACIN 500 MG TAB PO SCH (09:02)
[2020-08-26] MEDS: CHOLECALCIFEROL 1,000 UNITS 25 MCG TAB PO SCH (09:03)
[2020-08-26] MEDS: FERROUS SULFATE 325 MG TAB PO SCH (09:03)
[2020-08-26] MEDS: lisinopril 2.5 MG TAB PO SCH (09:03)
[2020-08-26] MEDS: ADVANCED PROBIOTIC 1250 MG CAPSULE PO SCH (09:03)
[2020-08-26] MEDS: LETROZOLE 2.5 MG TAB PO SCH (09:04)
[2020-08-26] MEDS: ENOXAPARIN INJ 40 MG/0.4 ML SYR SQ SCH (09:04)
--- NOTE | 2020-08-26 15:51 | Discharge Summary ---
Date of Service August 26, 2020 Admission HPI Per Admitting Provider This is an 80-year-old female who has significant past medical history of right breast cancer status postmastectomy and radiation in 2014 and hypertension who presents to ED after sustaining a mechanical fall prior to arrival. She states she was trying to get back in bed when she slipped and fell on her right hip. She had immediate pain and inability to walk. Daughter called EMS. She was brought to ED where she was found to have sustained a right displaced comminuted proximal femur fracture. She was made bed rest. Prior to fall she states she has been in a good state of health. She denies any recent illness. She denies any fever, chills, sweats, lightheadedness, dizziness, syncope, striking of head, chest pain, shortness of breath, palpitations, cough, nausea, vomiting, abdominal pain, change in bowel or urinary habits. She resides at [facility] at [facility]. She states she typically walks approximately 15 to 20 minutes daily and denies any exertional chest pain or shortness of breath. She denies any prior history of heart disease. Her appetite is otherwise been stable. Principal Diagnosis Fall /right Hip fracture : displaced and comminuted rt femur fracture S/p ORIF UTI :E coli Vitamin D deficiency urinary retention Discharge Exam Constitutional WD/WN, vitals as above Eyes PERRL, conjunctivae normal, anicteric sclerae + anicteric sclerae ENMT external ear and nose normal, oropharynx normal Neck trachea midline, no thyromegaly Respiratory normal respiratory effort, lungs clear to auscultation Cardiovascular RRR, no murmur, no edema Gastrointestinal (Abdomen) normal bowel sounds, soft, nontender, no hepatosplenomegaly Percussion/Palpation: abdomen soft; abdomen nontender Musculoskeletal no cyanosis or clubbing, extremities motor strength 5/5 Extremities: + lower extremity abnormal to inspection (right hip surgical incision present , healing well ) Right Skin no rashes, warm and dry Neurologic PERRL, EOMI, accommodation nl, no face palsy, no dysarthria Psychiatric A+Ox3, euthymic affect Discharge Data Allergies Allergy/AdvReac Type Severity Reaction Status Date / Time amoxicillin Allergy Rash Unverified 08/20/20 08:16 latex Allergy Rash Verified 08/20/20 16:24 Consultations 08/20/20 08:51 ED Decision to Admit Stat 08/20/20 08:59 Consult Orthopedic Surgery Routine 08/20/20 10:32 Consult Anesthesiology Routine 08/20/20 11:31 Consult Case Management - Discharge Planning Routine 08/21/20 14:08 Consult Case Management - Discharge Planning Routine 08/24/20 16:13 Consult Urology Routine Procedures Performed Operation Date: 08/21/20 11:05 Actual Procedures p Intramedullary Haile Right Femur(Right) - Dakotah Donovan DO Ordered Studies 08/21/20 11:05 FL fluoroscopy <1hr Routine FL hip RT 2-3V Routine Hospital Course (1) Fall: (2) Closed intertrochanteric fracture: Urinary retention : post void urine > 200 ml required multiple times ( ~3 ) straight cath since yesterday ordered to insert garcia catheter voiding trial in am pt failed voiding trial , bladder scan reveal > 400 ml urine without any urge for urinating per pt Garcia catheter placed again appreciate input from Urology put for follow up in 2-3 weeks for Voiding trial pt will be discharged to rehab with Garcia catheter Called pt's Daughter Marry -left message with update RIGHT DISPLACED AND COMMINUTED INTERTROCHANTERIC HIP FRACTURE s/p ORIF of rt hip on 08/21/20 POD# 3 recovering well post op /appreciate input from Ortho team toe touch wt bearing on rt lower ext PT eval appreciated , pt needs max assist for transfer , recommend short term rehab 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 Xrays show osteopenic skeletal structures . Vitamin D level 24.4 pt started on vitamin D3 supplement daily, repeat level in 3 months, leukocytosis : resolved urine culture Ecoli abx changed to PO cipro UTI: urine culture E coli PO Cipro ordered needs total 5 days tx Acute blood loss anemia : hb drop noted due to acute blood loss anemia : 13-10-9.7/post op status no indication for prbc transfusion ( current guideline : PRBC transfusion for HB < 7 or higher level if pt is symptomatic -hypotension , dizzy spell , tachycardia ) hb remains stable at 9.2 ordered Iron supplement QTC lengthened 504ms, avoid QT prolonging agents Hx of breast CA: cont home med Letrozole /Fumera (3) Vitamin D deficiency: Vitamin D level 24.4 Started on vitamin D3 5000 units daily Would repeat as outpatient in 3 months (4) Hyperglycemia: Admitting BSG 205-possibly due to stress related due to trauma , fall , hip fracture No prior history of diabetes, HbA1c 6.1 BSG has been in 120-140 pt is not diabetic , no anti diabetic meds needed (5) HTN (hypertension): Blood pressure stable Continue lisinopril (6) DVT prophylaxis: sc lovenox -ordered post op per Ortho team Follow-up: PCP Dr. Beaulieu upon discharge Disposition : stable to transfer to rehab today. Total Time Total Time Spent Total Time Spent (In Minutes): 35 mins Discharge Plan Discharge Items Patient Disposition: Transfer Snf Fac Reason For Visit: R DISPLACED AND COMMINUTED FEMUR FRACTURE Discharge Diagnosis: Fall /right Hip fracture : displaced and comminuted rt femur fracture S/p ORIF UTI :E coli Vitamin D deficiency urinary retention Activity: As commented below Weightbearing: Right partial and Right toe touch Non-emergency contact: Surgeon Call non-emergency contact if: your pain is not controlled, your pain is worsening and your temperature is above 101 Follow-up/Referrals: Philippe Gottlieb MD [Physician] - (Urology follow up in 2-3 weeks ) Miranda Beaulieu DO [Primary Care Provider] - Dakotah Donovan DO [Physician] - (Call to schedule a follow-up with Dr. Donovan for approximately 2 weeks after surgery.) Diet: Heart Healthy Addtl Attending Provider Instructions: Please take all medications as instructed on discharge list below. It is recommended that you follow-up with your primary care physician within 1-2 weeks of rehab discharge to ensure you are still doing well. you are found to be Vitamin D deficient , which causes thinning of bones ( osteoporosis ) increases risk of fracture /no healing /slow healing post fracture procedure you are started on Vit D supplement need to have a repeat Vit D level check in 3 months , PO supplemental dose may needs to be increased of vit D level remains low you are discharged with Garcia catheter , Follow up with Urology in 2-3 weeks for voiding trial Addtl Timing Adjuster Provider Instructions: [facility] DISCHARGE INSTRUCTIONS: HIP FRACTURE SELF CARE INSTRUCTIONS: A. You are to ambulate with a walker or crutches for approximately 6 weeks. B. You are TOE TOUCH WEIGHT BEARING on your operative lower extremity for at least 6 weeks. C. Wear low heeled shoes with non-slip soles D. Be sure that your floors are free of things that could trip you throw rugs, electrical cords, and small objects. Avoid wet and waxed floors, especially with crutches/walker/cane. E. Try to walk several times a day with rest periods between. F. You may shower 48 hours after surgery and get the incision area wet, but DO NOT soak or submerge incision area in water. (No baths, swimming pools, hot tubs) G. You may have a large, band-aid like dressing over your incision (Aquacel). This will remain on your incision for 7 days, and then can be removed. You CAN shower with this on. If incision is leaking through the dressing, please call the office . H. Do NOT apply soap or any ointment/lotions directly over incision. I. You may use ice as needed to operative site. SPECIAL CARE INSTRUCTIONS: VERY IMPORTANT TO READ AND REVIEW A. You may be at risk for phlebitis or blood clots. a. Wear surgical stockings (FOLR hose) for 2 weeks after surgery to improve circulation and reduce swelling. b. Take LOVENOX 40mg SQ daily for 4 weeks or as directed. This is your blood thinner. c. If you are on Coumadin- you will have daily/weekly blood work to monitor your levels. This will be done by either your family physician/sleeve fixer (if you are on Coumadin chronically) versus your orthopedic surgeon. Expect a phone call the day of or the day after your blood work is drawn to adjust your dose accordingly. B. There are a few signs you need to watch for after you are home. Call [facility] at [phone] if you experience any of the following: a. If you have a temperature of 101 degrees or higher. b. Sudden increase in pain in your hip not relieved by rest or pain medication. c. Any fluid or drainage from the incision; redness of the incision. d. Shortness of breath or chest pain. B. Please call [facility] at [phone] if you have any questions or concerns about your operation or recovery. C. Call your physician if: a. Temperature is greater than 101 degrees (F). b. Pain is not relieved by prescribed pain medications. c. Increase drainage or redness from incision. d. Unanswered questions or concerns. D. Pain Medication: a. You will be prescribed pain medication upon discharge that should last till your first post-operative appointment. b. If you experience nausea and/or skin rash, discontinue this medication and contact our office for an alternative medication. c. Caution- narcotic pain medication can cause constipation. FOLLOW UP VISIT: Please call [facility] at [phone] to schedule a follow up appointment 10-14 days from the date of your surgery date. Pending Studies at Discharge: No Stand-Alone Forms: My [facility] Skilled Items Patient informed of condition?: Yes DNR: No Discharge Level of Care: Skilled Communicable Disease: No Discharge Prognosis: Stable Lines: None Urinary Catheter: Yes Medications and DC Order Prescriptions: New ferrous sulfate 325 mg (65 mg iron) Tablet,Delayed Release (Dr/Ec) 325 mg PO BIDM 30 Days Qty: 0 RF: 0 magnesium hydroxide [Milk of Magnesia] 400 mg/5 mL Suspension 30 ml PO DAILY PRN30 Days Qty: 0 RF: 0 cholecalciferol (vitamin D3) 25 mcg (1,000 unit) Capsule 5,000 unit PO QAM Qty: 0 RF: 0 Advanced Probiotic 625 mg (10 billion cell) Capsule 2 cap PO DAILY 30 Days Qty: 60 RF: 0 Continued lisinopril 5 mg tablet 2.5 mg PO DAILY RF: 0 letrozole 2.5 mg tablet 5 mg PO DAILY RF: 0 buspirone 5 mg tablet 5 mg PO BID PRN (Reason: Anxiety) RF: 0 Discharge Orders: Discharge Order (Routine); Ordered 08/26/20 Ordered By: Rachell Andrade/Other Patient Handouts: A1C Admission Data Admit Date/Time: 08/20/20 08:59 Attending Provider: Rachell Vieyra Admit Provider: Rachell Vieyra Primary Care Provider: Miranda Beaulieu Other Providers: Luis Yang ; Rachell Vieyra ; Philippe Nation ; Maura Baca ; Mustapha Padilla ; Todd Kim ; Philippe Gottlieb ; Lucille Fonseca ; Taina Mora ; Kenny Hanson ; Jennifer Tipton ; Deandra Quiros ; Roberta Baron ; Tod Pina ; Lacey Hernandez ; Corie Ann Other Interventions: Discharge Summary Assessment (RN) Last Done: 08/26/20 16:10
== END 2020-08-26 17:10 | DRG 481 ==
LOC: ED 07:50 → 3W 08:59

== ENCOUNTER 2024-07-09 17:29 | Inpatient (IN) ==
--- NOTE | 2024-07-09 18:41 | Emergency Department Note ---
Impression & Plan Closed intertrochanteric fracture of left hip, Head injury, Laceration of scalp ED Provider Note NAME: KAREN CASTREJON AGE: 84 SEX: F : 1940 ARRIVES VIA: Ambulance INFORMANT: Patient, the patient's daughter ED PROVIDER(S): David Kaba DO CHIEF COMPLAINT: Fall HPI: The patient 84-year-old female who presented to the emergency department after a fall. The patient was using her walker. People were trying to help her ambulate but she thinks she got her legs tangled and she fell onto her left side but also injured her head. The patient had a large scalp laceration. This was treated with a pressure dressing prior to arrival. The patient denies having any loss of conscious. She was not able to ambulate. She was having significant pain in her left thigh. She denies having any chest pain or abdominal pain. She denies having any back or neck pain. The patient does not take any oral anticoagulants. ROS: See above HPI for pertinent positives & negatives. A total of 10 systems reviewed and were otherwise negative. PAST MEDICAL HISTORY: See Below PAST SURGICAL HISTORY: See Below FAMILY HISTORY: See Below SOCIAL HISTORY: See Below HOME MEDICATIONS: See Below ALLERGIES: See Below VITALS: See Below PHYSICAL EXAMINATION: GENERAL: The patient is awake and alert. The patient is very anxious. EYES: The conjunctivae are clear. The pupils are round and reactive. EARS, NOSE, MOUTH AND THROAT: The nose is without any evidence of any deformity. Scalp dressing was in place. NECK: The neck is nontender and supple. RESPIRATORY: Normal respiratory effort is noted there is no evidence of wheezing rhonchi or rales CARDIOVASCULAR: Regular rate and rhythm noted there no murmurs rubs or gallops normal S1 normal S2. GASTROINTESTINAL: The abdomen is soft. Abdomen is nontender. BACK: No midline tenderness or or step-off noted range of motion in flexion extension as well as rotation no signs of muscle spasm noted MUSCULOSKELETAL/EXTREMITIES: The left leg was shortened and internally rotated. There was tenderness over the left mid thigh. SKIN: Skin was warm and dry. Pedal edema was noted bilaterally. NEUROLOGIC: Patient is awake alert and oriented x3. MEDICAL DECISION MAKING: The patient is an 84-year-old female who presented to the emergency department by ambulance with her daughter for an evaluation after a fall. The patient suffered a head injury. She also injured her left hip. I discussed the patient's laboratory and radiographic studies with her. She was treated with pain medication. She was also given IV antibiotics as well as IV pain medication. Her tetanus shot was updated. She did appear to have signs of a hip fracture on the left. The patient's CT of the head and neck did not show any acute traumatic injury. I discussed her condition with the on-call [facility]. They have agreed to evaluate the patient in the emergency department. I discussed the patient's radiographic studies with the daughter. Triage Nursing notes reviewed. Prior medical records reviewed Vital Signs: reviewed and remarkable for elevated blood pressure. Differential diagnosis: Fracture, dislocation, contusion, intra-abdominal, pneumothorax, intrathoracic, intracranial, neurologic, compartment syndrome, rhabdomyolysis, as well as other pathologies. ER treatment provided: See below Diagnostics interpreted by me: ECG: EKG was obtained in the emergency department. My interpretation is sinus rhythm at 62 bpm. No PVCs were noted. LVH was suggested by voltage criteria. An incomplete right bundle branch block pattern was noted. Nonspecific T wave abnormalities were noted in the high lateral leads. This was compared to a tracing from September 22, 2022. No changes were noted. Cardiac Monitoring: An order was placed for continuous cardiac monitoring. The monitor shows a rate of 73 bpm with sinus rhythm. Laboratory studies: As stated above and show below. Imaging studies: See below. Radiographic imaging was reviewed by myself Consultation(s): I discussed this case with Dr. Flores who is on-call for the [facility] group. ED COURSE: Procedures: Location: Scalp Total length: 2.5 cm Complexity: Simple Verbal consent was obtained after the risks and benefits were explained, including but not limited to bleeding, scarring, infection, pain, and bone/nerve damage. At this time, the risks of the procedure are less than the risks of NOT performing the procedure. A time out was taken and the correct patient and site identified. The scalp was prepped with betadine. The target area was anesthetized with 5 ml of 1% lidocaine without epinephrine. Copious irrigation was performed using saline. The skin was re-prepped with betadine, the hair cleared from the wound, and a sterile field set. The wound was explored for foreign bodies and none found. Debridement was not performed. The wound edges were approximated using 7 surgical sunil in the standard fashion. Hemostasis and excellent approximation was achieved. Antibacterial ointment and a sterile dressing applied. Detailed wound care instructions and signs and symptoms of infection reviewed with the patient and her daughter. No complications and the patient tolerated the procedure well. Past Med/Surg History Problem List (Updated 07/09/24 @ 21:21 by David Kaba DO) Laceration of scalp (Acute) Head injury (Acute) Closed intertrochanteric fracture of left hip (Acute) COVID-19 (Acute) COVID-19 (Acute) Acute urinary retention Encounter for pre-operative examination Pre-diabetes DVT prophylaxis Hyperglycemia Vitamin D deficiency Closed intertrochanteric fracture (Acute) Fall (Acute) Acute leg pain (Acute) Anxiety History of breast cancer HTN (hypertension) Surgical History History of mastectomy Right - 2013 Family History Mother , 92 Old age Father Sudden Sister Lymphoma Leukemia Social History Smoking Status: Never smoker Second Hand Exposure: No; Do You Dip or Chew Tobacco: No; Hx Alcohol Use: No Hx Substance Use: No Preferred Language: Hungarian Communication Ability: Effective Beliefs That Will Affect Care: Roman Catholic marital status: Current Living Situation: Alone Current Living Situation Comment: [facility]iary apartment. Feels Safe at Home: Yes Assistive Devices: Walker Allergies Allergies Allergy/AdvReac Type Severity Reaction Status Date / Time amoxicillin Allergy Intermediate Rash Verified 09/22/22 19:46 latex Allergy Intermediate Rash Verified 09/22/22 19:46 Home Meds Home Medications Medication Instructions Recorded Confirmed cholecalciferol (vitamin D3) 50 50 mcg PO DAILY 07/09/24 07/09/24 mcg (2,000 unit) tablet (Vitamin D3) escitalopram oxalate 10 mg tablet 10 mg PO DAILY 07/09/24 07/09/24 meclizine 12.5 mg PO TID 07/09/24 07/09/24 Results & Data (ED) Vital Signs Vital Signs - 24 hr 07/09/24 17:32 07/09/24 17:32 07/09/24 17:51 Temperature 36.8 C 36.8 C Temperature Source Oral Oral Pulse Rate 57 L 62 Pulse Rate [Apical] 60 Respiratory Rate 20 17 Respiratory Effort / Characteristics Non-Labored Spontaneous Respiratory Depth Normal Blood Pressure 197/89 H Blood Pressure [Left Arm] 197/89 H Blood Pressure Mean 125 Blood Pressure Mean [Left Arm] 125 Blood Pressure Position Semi-fowlers Blood Pressure Position [Left Arm] Semi-fowlers Pulse Oximetry 94 94 Oxygen Delivery Method Room Air Room Air Oxygen Flow Rate Sepsis Recent Fever Within 48 Hours No Sepsis New/Unexplained Change in Mental Status N/A Sepsis Action Taken by Nursing No Action Required 07/09/24 18:40 07/09/24 19:16 07/09/24 21:27 Temperature Temperature Source Pulse Rate 61 73 Pulse Rate [Apical] 66 Respiratory Rate 24 19 Respiratory Effort / Characteristics Respiratory Depth Blood Pressure Blood Pressure [Left Arm] 196/91 H Blood Pressure Mean Blood Pressure Mean [Left Arm] 126 Blood Pressure Position Blood Pressure Position [Left Arm] Pulse Oximetry 96 97 Oxygen Delivery Method Room Air Nasal Cannula Oxygen Flow Rate 2 Sepsis Recent Fever Within 48 Hours Sepsis New/Unexplained Change in Mental Status Sepsis Action Taken by Intermediate Medications Current Medication List: was personally reviewed by me Laboratory Data Attestation: I reviewed the patient's lab results. 07/09/24 18:49 07/09/24 18:49 Lab Results 07/09/24 Range/Units 18:49 WBC 10.61 (4.8-10.8) K/ul RBC 5.11 (4.20-5.40) M/uL Hgb 14.8 (12.0-16.0) g/dl Hct 44.9 (37.0-47.0) % MCV 87.9 (80.0-100.0) fL MCH 29.0 (25.0-34.0) pg MCHC 33.0 (32.0-36.0) g/dL RDW Std Deviation 43.4 (36.4-46.3) fL RDW Coeff of Kelsey 13.3 (11.5-14.5) % Plt Count 318 (130-400) K/uL MPV 10.0 (9.4-12.4) fL Immature Gran % (Auto) 0.3 % Neut % (Auto) 85.0 % Lymph % (Auto) 8.7 % [place] % (Auto) 4.5 % Eos % (Auto) 0.8 % Baso % (Auto) 0.7 % Neut # (Auto) 9.03 H (1.40-6.50) K/uL Lymph # (Auto) 0.92 L (1.20-3.40) K/uL [place] # (Auto) 0.48 (0.11-0.59) K/uL Eos # (Auto) 0.08 (0.00-0.50) K/uL Baso # (Auto) 0.07 (0.00-0.20) K/uL Immature Gran # (Auto) 0.03 (0.01-0.20) K/uL PT 11.5 (9.0-12.0) Seconds INR 1.1 (0.9-1.1) APTT 26 (21-31) Seconds PTT Ratio 1.0 Sodium 136 (136-145) mmol/L Potassium 3.9 (3.5-5.1) mmol/L Chloride 100 (98-107) mmol/L Carbon Dioxide 26 (21-32) mmol/L Anion Gap 10 (3-11) BUN 18 (6-23) mg/dl Creatinine 0.73 (0.6-1.2) mg/dl Est Cr Clr Drug Dosing 59.2 ml/min eGFR 81.04 BUN/Creatinine Ratio 24.7 H (10-20) Glucose 150 H (70-99(Fasting)) mg/dl Calcium 9.5 (8.6-10.3) mg/dl Total Bilirubin 0.5 (0.2-1.0) mg/dl AST 41 H (13-39) U/L ALT 36 (7-52) U/L Alkaline Phosphatase 97 (34-104) U/L Troponin I High Sens 5.0 (0-14) pg/ml Total Protein 8.1 (6.0-8.3) gm/dl Albumin 4.5 (3.4-5.0) gm/dl Globulin 3.6 (2.5-4.0) gm/dl Albumin/Globulin Ratio 1.3 (0.9-2) Lipase 29 (11-82) U/L Administered Medications Discontinued Medications Diphtheria/Pertussis/Tetanus Vacc (Diphther/Tetan/Pertus Vaccine (Tdap, Adol/Adult) 0.5ml) 0.5 ml IM .ONCE ONE Stop: 07/09/24 18:17 Last Admin: 07/09/24 18:57 Dose: 0.5 ml Documented By: ANGEL Hydromorphone HCl (Hydromorphone Inj 0.5 Mg/0.5 Ml Syr) 0.5 mg IV NOW STA Stop: 07/09/24 18:17 Last Admin: 07/09/24 18:57 Dose: 0.5 mg Documented By: ANGEL Cefazolin Sodium 3,000 mg/ (Dextrose) 72.5 mls @ 145 mls/hr IV NOW STA Stop: 07/09/24 18:45 Last Infusion: 07/09/24 19:46 Dose: Infused Documented By: Admin: 07/09/24 19:14 Dose: 145 mls/hr Documented By: ANGEL Lidocaine (Lidocaine/Epineph/Tetracaine 1 Ea Syr) 1 each EXT NOW STA Stop: 07/09/24 18:17 Last Admin: 07/09/24 18:57 Dose: 1 each Documented By: ANGEL Lidocaine HCl (Lidocaine 1% Local 20 Ml Vial) 10 ml INFIL NOW ONE Stop: 07/09/24 19:59 Last Admin: 07/09/24 20:14 Dose: 10 ml Documented By: EULA Morphine Sulfate (Morphine Sulfate 4 Mg/Ml 1 Ml Carp\Vial) 4 mg IV NOW STA Stop: 07/09/24 18:17 Last Admin: 07/09/24 18:56 Dose: 4 mg Documented By: ANGEL Imaging Data Attestation: I personally reviewed and interpreted this imaging study as follows: My Impression: CT of the brain was obtained in the emergency department. My interpretation is no intracranial hemorrhage or mass effect, final report below. X-ray of the chest was obtained in the emergency department. My interpretation is no free air or definite infiltrate, final report below. X-ray of the left femur and pelvis was obtained in the emergency department. My interpretation is left-sided anterior trochanteric hip fracture, final report below. CT of the hip was obtained in the emergency department. My interpretation is intertrochanteric left hip fracture, final report below. Radiologist's Impression: Cervical Spine CT 07/09/24 18:16 Exam(s): CT C SPINE EXAM: CT Cervical Spine Without Intravenous Contrast CLINICAL HISTORY: Reason for exam: fall. TECHNIQUE: Axial computed tomography images of the cervical spine without intravenous contrast. CTDI is 24.26 mGy and DLP is 506.76 mGy-cm. Automated exposure control was utilized for the study. A dose lowering technique was utilized adhering to the principles of ALARA. COMPARISON: No relevant prior studies available. FINDINGS: Vertebrae: No acute fracture. No malalignment. Soft tissues: Unremarkable. Lung apices: Scarring at the right lung apex. IMPRESSION: No acute findings in the cervical spine. Electronically signed by: Lalit Swift MD 07/09/24 21:14 PM Chest X-Ray 07/09/24 18:16 EXAM: XR chest 1V portable CLINICAL HISTORY: FALL HKS/KFK TECHNIQUE: An X-ray image of the chest is obtained in AP projection. COMPARISON: 09/16/2022 CR chest FINDINGS: Pulmonary Parenchyma: There is evidence of reticular shadowing in the left lower zone with some soft tissue haze. No evidence of consolidation, collapse, or focal opacities. No pulmonary nodules are identified. Left costophrenic angle is blunted signifying mil pleural thickening. Right costophrenic angle is clear. Heart and Mediastinum: Heart size and shape are normal. No mediastinal widening or masses. No hilar or mediastinal lymphadenopathy. Bony Thorax: Bony thorax appears intact without fractures or deformities. Right total shoulder reverse arthroplasty. Soft Tissues: Soft tissues overlying the chest wall are unremarkable. IMPRESSION: 1. Left lower zone reticular shadowing with some soft tissue haze showing interval increase on comparison. 2. No acute consolidation or collapse is seen on either side. 3. Right total shoulder reverse arthroplasty. 4. CT chest is advised for further characterization if clinically needed. Electronically signed by Zonia Maradiaga 07-09-2024 7:58 PM Femur X-Ray 07/09/24 18:16 EXAM: XR femur LT 2V routine CLINICAL HISTORY: FALL HKS/KFK. TECHNIQUE: X-ray images of the left femur were obtained in anteroposterior (AP) and lateral projections. COMPARISON: No prior studies are available for comparison. FINDINGS: Bone Structure: The femoral shaft, neck, and proximal and distal regions are normal in structure and alignment. No evidence of acute fractures or dislocations. Joint and Articular Surfaces: Mild osteoarthritic changes of the left hip joint evident by narrow joint space and subchondral sclerosis. Soft Tissues: Periarticular and surrounding soft tissues appear normal. No signs of soft tissue swelling, calcifications, or masses. IMPRESSION: 1. No evidence of acute fractures, or dislocations. 2. Mild osteoarthritic changes of the left hip joint. Disclaimer: A subtle bone abnormality or fracture may not be readily apparent on X-rays. Clinical correlation and further imaging, including CT, MRI, or follow-up X-rays, are advised if clinically warranted. Electronically signed by Zonia Maradiaga 07-09-2024 8:[address] 07/09/24 18:16 Exam(s): CT HEAD Without Contrast EXAM: CT Head Without Intravenous Contrast CLINICAL HISTORY: Reason for exam: fall. TECHNIQUE: Axial computed tomography images of the head/brain without intravenous contrast. CTDI is 38.64 mGy and DLP is 702.46 mGy-cm. Automated exposure control was utilized for the study. A dose lowering technique was utilized adhering to the principles of ALARA. COMPARISON: Head CT 09/22/2022 FINDINGS: Brain: No intracranial hemorrhage. Global parenchymal atrophy and chronic microvascular ischemic changes. Ventricles: Dilated ventricles slightly out of proportion to the degree of volume loss potentially representing NPH. Bones/joints: Unremarkable. No fracture. Soft tissues: Scalp laceration. Sinuses: No acute sinusitis. Mastoid air cells: Unremarkable as visualized. IMPRESSION: 1. No intracranial hemorrhage. 2. Global parenchymal atrophy and chronic microvascular ischemic changes. 3. Scalp laceration. 4. Dilated ventricles slightly out of proportion to the degree of volume loss potentially representing NPH. Electronically signed by: Lalit Swift MD 07/09/24 21:09 PM Pelvis X-Ray 07/09/24 18:16 EXAM: XR pelvis 1-2V routine CLINICAL HISTORY: FALL. TECHNIQUE: X-ray images of the pelvis were obtained in anteroposterior (AP) projection. COMPARISON: CR dated 08/21/2020. FINDINGS: Bone Structure: Pelvic bones, including the iliac wings, ischium, pubis, and sacrum, are normal and intact. No evidence of fractures, dislocations, or significant osseous lesions. Hip Joints: Internal fixation of the right femoral neck using a dynamic hip screw. Hip joints are normal with preserved joint spaces. No evidence of hip dislocation, subluxation, or significant degenerative changes. Acetabulum: Acetabular structures appear normal and intact. No signs of acetabular fracture or dysplasia. Symphysis Pubis: The symphysis pubis is normal and intact. No evidence of separation or widening. Sacroiliac Joints: Bilateral degenerative sacroiliitis. Soft Tissues: Visualized soft tissues are normal and unremarkable. No soft tissue swelling, calcifications, or masses. IMPRESSION: 1. Internal fixation of the right femoral neck using a dynamic hip screw. 2. Bilateral degenerative sacroiliitis. 3. Lumbar spondylotic changes. Disclaimer: A subtle bone abnormality or fracture may not be readily apparent on X-rays, thus clinical correlation and further imaging including follow-up CT, MRI, or follow-up X-rays are advised as needed. Electronically signed by Zonia Maradiaga 07-09-2024 8:[address] 07/09/24 20:38 Exam(s): CT LEFT HIP Without Contrast EXAM: CT Left Lower Extremity Without Intravenous Contrast, Hip CLINICAL HISTORY: Reason for exam: fall, abnormal x ray. TECHNIQUE: Axial computed tomography images of the left hip without intravenous contrast. CTDI is 25.05 mGy and DLP is 432.62 mGy-cm. Automated exposure control was utilized for the study. A dose lowering technique was utilized adhering to the principles of ALARA. COMPARISON: No relevant prior studies available. FINDINGS: Bones/joints: Acute intertrochanteric fracture on the left. Moderate degenerative changes of the left hip. No acetabular fracture. No pubic ramus fracture. No dislocation. Soft tissues: Unremarkable. IMPRESSION: Acute intertrochanteric fracture on the left. Electronically signed by: Lalit Swift MD 07/09/24 21:59 PM Discharge Plan Visit Data Chief Complaint: Fall ED Provider: David Kaba Discharge Problem: Closed intertrochanteric fracture of left hip, Head injury, Laceration of scalp Patient Disposition: Being Evaluated by Hospitalist Forms Stand Alone Forms: [facility] Prescriptions Prescriptions: No Action escitalopram oxalate 10 mg tablet 10 mg PO DAILY cholecalciferol (vitamin D3) [Vitamin D3] 50 mcg (2,000 unit) Tablet 50 mcg PO DAILY meclizine 12.5 mg PO TID Referrals Referrals: Miranda Beaulieu DO [Primary Care Provider] - Discharge Problem: Closed intertrochanteric fracture of left hip Qualifiers: Encounter type: initial encounter Fracture alignment: displaced Qualified Code(s): S72.142A - Displaced intertrochanteric fracture of left femur, initial encounter for closed fracture Head injury Qualifiers: Encounter type: initial encounter Qualified Code(s): S09.90XA - Unspecified injury of head, initial encounter Laceration of scalp Qualifiers: Encounter type: initial encounter Qualified Code(s): S01.01XA - Laceration without foreign body of scalp, initial encounter
[2024-07-09] MEDS: MoRPHine SULFATE 4 MG/ML 1 ML CARP\\VIAL IV STA (18:56)
[2024-07-09] MEDS: DIPHTHER/TETAN/PERTUS Vaccine (Tdap, Adol/Adult) 0.5mL IM ONE (18:57)
[2024-07-09] MEDS: HYDROmorphone INJ 0.5 MG/0.5 ML SYR IV STA (18:57)
[2024-07-09] MEDS: LIDOCAINE/EPINEPH/TETRACAINE 1 EA SYR EXT STA (18:57)
[2024-07-09] MEDS: ceFAZolin 3,000 MG in DEXTROSE 5% 50 ML IV STA (19:14)
[2024-07-09 19:20] LABS: Albumin Globulin Ratio 1.3 (0.9-2); Albumin Level 4.5 gm/dl (3.4-5.0); BUN Creatinine Ratio 24.7 (10-20); Basophils # (auto) 0.07 K/uL (0.00-0.20); Basophils % (auto) 0.7 %; Bilirubin,Total 0.5 mg/dl (0.2-1.0); Calcium 9.5 mg/dl (8.6-10.3); Creatinine Clr Calc Pharmacy 59.2 ml/min; Eosinophils # (auto) 0.08 K/uL (0.00-0.50); Eosinophils % (auto) 0.8 %; Globulin 3.6 gm/dl (2.5-4.0); Hematocrit (blood only) 44.9 % (37.0-47.0); Hemoglobin 14.8 g/dl (12.0-16.0); Immature Granulocytes # (auto) 0.03 K/uL (0.01-0.20); Immature Granulocytes % (auto) 0.3 %; Lymphocytes # (auto) 0.92 K/uL (1.20-3.40); Lymphocytes % (auto) 8.7 %; Mean Corpuscular Volume 87.9 fL (80.0-100.0); Monocytes # (auto) 0.48 K/uL (0.11-0.59); Monocytes % (auto) 4.5 %; Neutrophils # (auto) 9.03 K/uL (1.40-6.50); Platelet Count 318 K/uL (130-400); Potassium 3.9 mmol/L (3.5-5.1); RDW Coefficient of Variation 13.3 % (11.5-14.5); RDW Standard Deviation 43.4 fL (36.4-46.3); Red Blood Count 5.11 M/uL (4.20-5.40); Total Protein 8.1 gm/dl (6.0-8.3); White Blood Count 10.61 K/ul (4.8-10.8)
[2024-07-09 19:29] LABS: INR 1.1 (0.9-1.1); Partial Thromboplastin Time 26 Seconds (21-31); Prothrombin Time 11.5 Seconds (9.0-12.0)
--- NOTE | 2024-07-09 19:59 | XRay Report ---
EXAM: XR chest 1V portable CLINICAL HISTORY: FALL HKS/KFK TECHNIQUE: An X-ray image of the chest is obtained in AP projection. COMPARISON: 09/16/2022 CR chest FINDINGS: Pulmonary Parenchyma: There is evidence of reticular shadowing in the left lower zone with some soft tissue haze. No evidence of consolidation, collapse, or focal opacities. No pulmonary nodules are identified. Left costophrenic angle is blunted signifying mil pleural thickening. Right costophrenic angle is clear. Heart and Mediastinum: Heart size and shape are normal. No mediastinal widening or masses. No hilar or mediastinal lymphadenopathy. Bony Thorax: Bony thorax appears intact without fractures or deformities. Right total shoulder reverse arthroplasty. Soft Tissues: Soft tissues overlying the chest wall are unremarkable. IMPRESSION: 1. Left lower zone reticular shadowing with some soft tissue haze showing interval increase on comparison. 2. No acute consolidation or collapse is seen on either side. 3. Right total shoulder reverse arthroplasty. 4. CT chest is advised for further characterization if clinically needed. Electronically signed by Zonia Maradiaga 07-09-2024 7:58 PM
[2024-07-09] MEDS: LIDOCAINE 1% LOCAL 20 ML VIAL INFIL ONE (20:14)
--- NOTE | 2024-07-09 20:18 | XRay Report ---
EXAM: XR femur LT 2V routine CLINICAL HISTORY: FALL HKS/KFK. TECHNIQUE: X-ray images of the left femur were obtained in anteroposterior (AP) and lateral projections. COMPARISON: No prior studies are available for comparison. FINDINGS: Bone Structure: The femoral shaft, neck, and proximal and distal regions are normal in structure and alignment. No evidence of acute fractures or dislocations. Joint and Articular Surfaces: Mild osteoarthritic changes of the left hip joint evident by narrow joint space and subchondral sclerosis. Soft Tissues: Periarticular and surrounding soft tissues appear normal. No signs of soft tissue swelling, calcifications, or masses. IMPRESSION: 1. No evidence of acute fractures, or dislocations. 2. Mild osteoarthritic changes of the left hip joint. Disclaimer: A subtle bone abnormality or fracture may not be readily apparent on X-rays. Clinical correlation and further imaging, including CT, MRI, or follow-up X-rays, are advised if clinically warranted. Electronically signed by Zonia Maradiaga 07-09-2024 8:17 PM
--- NOTE | 2024-07-09 20:34 | XRay Report ---
EXAM: XR pelvis 1-2V routine CLINICAL HISTORY: FALL. TECHNIQUE: X-ray images of the pelvis were obtained in anteroposterior (AP) projection. COMPARISON: dated 08/21/2020. FINDINGS: Bone Structure: Pelvic bones, including the iliac wings, ischium, pubis, and sacrum, are normal and intact. No evidence of fractures, dislocations, or significant osseous lesions. Hip Joints: Internal fixation of the right femoral neck using a dynamic hip screw. Hip joints are normal with preserved joint spaces. No evidence of hip dislocation, subluxation, or significant degenerative changes. Acetabulum: Acetabular structures appear normal and intact. No signs of acetabular fracture or dysplasia. Symphysis Pubis: The symphysis pubis is normal and intact. No evidence of separation or widening. Sacroiliac Joints: Bilateral degenerative sacroiliitis. Soft Tissues: Visualized soft tissues are normal and unremarkable. No soft tissue swelling, calcifications, or masses. IMPRESSION: 1. Internal fixation of the right femoral neck using a dynamic hip screw. 2. Bilateral degenerative sacroiliitis. 3. Lumbar spondylotic changes. Disclaimer: A subtle bone abnormality or fracture may not be readily apparent on X-rays, thus clinical correlation and further imaging including follow-up CT, MRI, or follow-up X-rays are advised as needed. Electronically signed by Zonia Maradiaga 07-09-2024 8:34 PM
--- NOTE | 2024-07-09 21:10 | CT Scan Report ---
Exam(s): CT HEAD Without Contrast EXAM: CT Head Without Intravenous Contrast CLINICAL HISTORY: Reason for exam: fall. TECHNIQUE: Axial computed tomography images of the head/brain without intravenous contrast. CTDI is 38.64 mGy and DLP is 702.46 mGy-cm. Automated exposure control was utilized for the study. A dose lowering technique was utilized adhering to the principles of ALARA. COMPARISON: Head CT 09/22/2022 FINDINGS: Brain: No intracranial hemorrhage. Global parenchymal atrophy and chronic microvascular ischemic changes. Ventricles: Dilated ventricles slightly out of proportion to the degree of volume loss potentially representing NPH. Bones/joints: Unremarkable. No fracture. Soft tissues: Scalp laceration. Sinuses: No acute sinusitis. Mastoid air cells: Unremarkable as visualized. IMPRESSION: 1. No intracranial hemorrhage. 2. Global parenchymal atrophy and chronic microvascular ischemic changes. 3. Scalp laceration. 4. Dilated ventricles slightly out of proportion to the degree of volume loss potentially representing NPH. Electronically signed by: Lalit Swift MD 07/09/24 21:09 PM
--- NOTE | 2024-07-09 21:15 | CT Scan Report ---
Exam(s): CT C SPINE EXAM: CT Cervical Spine Without Intravenous Contrast CLINICAL HISTORY: Reason for exam: fall. TECHNIQUE: Axial computed tomography images of the cervical spine without intravenous contrast. CTDI is 24.26 mGy and DLP is 506.76 mGy-cm. Automated exposure control was utilized for the study. A dose lowering technique was utilized adhering to the principles of ALARA. COMPARISON: No relevant prior studies available. FINDINGS: Vertebrae: No acute fracture. No malalignment. Soft tissues: Unremarkable. Lung apices: Scarring at the right lung apex. IMPRESSION: No acute findings in the cervical spine. Electronically signed by: Lalit Swift MD 07/09/24 21:14 PM
--- NOTE | 2024-07-09 22:01 | CT Scan Report ---
Exam(s): CT LEFT HIP Without Contrast EXAM: CT Left Lower Extremity Without Intravenous Contrast, Hip CLINICAL HISTORY: Reason for exam: fall, abnormal x ray. TECHNIQUE: Axial computed tomography images of the left hip without intravenous contrast. CTDI is 25.05 mGy and DLP is 432.62 mGy-cm. Automated exposure control was utilized for the study. A dose lowering technique was utilized adhering to the principles of ALARA. COMPARISON: No relevant prior studies available. FINDINGS: Bones/joints: Acute intertrochanteric fracture on the left. Moderate degenerative changes of the left hip. No acetabular fracture. No pubic ramus fracture. No dislocation. Soft tissues: Unremarkable. IMPRESSION: Acute intertrochanteric fracture on the left. Electronically signed by: Lalit Swift MD 07/09/24 21:59 PM
--- NOTE | 2024-07-09 22:18 | History & Physical Report ---
Date of Service July 09, 2024 Assessment & Plan (1) Closed intertrochanteric fracture of left hip: Plan: 84-year-old female past med history significant for hypertension, not on medication vitamin D deficiency, history of urinary retention history of anxiety history of breast cancer who lives at a personal snf and ambulates with a walker came with a fall and a laceration on the head and also complaining of left hip pain. Patient states she frequently gets dizzy. She is on meclizine. While she was ambulating with a walker she felt dizzy and fell down on the left side. Denies loss of consciousness. They were people around her and called her daughter per patient and she was brought here. Complains of left hip pain. Denies any headache. Laceration on the head was stapled. Denies any blurred vision. No runny nose or sore throat. No cough. No difficulty swallowing. Eating and drinking okay. Denies any chest pain. Denies shortness of breath. No nausea. Has some abdominal discomfort. Normal bowel and bladder movements. Hemodynamics are okay. In August 2020 patient was admitted for fall and right displaced and commuted intertrochanteric hip fracture and was status post ORIF at that time and was also treated for UTI during that admission. Closed intertrochanteric fracture of left hip Status post fall Patient has history of dizziness and felt dizzy before falling down Pain control N.p.o. Gentle fluids NO cardiac history per records echo is ok patient should be at acceptable risk to proceed with surgery Consult Ortho in a.m. Scalp laceration Status post sunil received ancef in er. Will continue with Keflex for short duration CT head no intracranial hemorrhage Dilated ventricles possible NPH Possible NPH was also found on CAT scan done in September 2022 And patient had MRI brain as outpatient on December 2022 which did not show NPH.MRI showed moderate white matter changes which are nonspecific but could be seen with advanced chronic small vessel ischemia. Hypertension Not on meds Will monitor Dizziness On meclizine echo while in hospital Will monitor in med/daily History of breast cancer S/p mastectomy and chemo DVT prophylaxis SCDs on right leg Further anticoagulation as per orthopedics Disposition Med/daily Full code. History of Present Illness Chief Complaint: Status post fall Primary Care Provider: Miranda Beaulieu DO 84-year-old female past med history significant for hypertension, not on medication vitamin D deficiency, history of urinary retention history of anxiety history of breast cancer who lives at a personal snf and ambulates with a walker came with a fall and a laceration on the head and also complaining of left hip pain. Patient states she frequently gets dizzy. She is on meclizine. While she was ambulating with a walker she felt dizzy and fell down on the left side. Denies loss of consciousness. They were people around her and called her daughter per patient and she was brought here. Complains of left hip pain. Denies any headache. Laceration on the head was stapled. Denies any blurred vi davin. No runny nose or sore throat. No cough. No difficulty swallowing. Eating and drinking okay. Denies any chest pain. Denies shortness of breath. No nausea. Has some abdominal discomfort. Normal bowel and bladder movements. Hemodynamics are okay. In August 2020 patient was admitted for fall and right displaced and commuted intertrochanteric hip fracture and was status post ORIF at that time and was also treated for UTI during that admission. Past medical history. As mentioned above Past surgical history. Right humeral fracture with internal fixation March 2021. She was right total shoulder arthroplasty in March 2021. Right hip fracture fixation in August 2020. Right partial mastectomy in 2013. Right complete simple mastectomy in 2015. Bilateral cataracts. Social history. Current living at personal-snf. No smoking. No alcohol use. No drug use. Family history. No family history on file. Allergies Allergy/AdvReac Type Severity Reaction Status Date / Time amoxicillin Allergy Intermediate Rash Verified 09/22/22 19:46 latex Allergy Intermediate Rash Verified 09/22/22 19:46 Home Medications Medication Instructions Recorded Confirmed Type cholecalciferol (vitamin D3) 50 50 mcg PO DAILY 07/09/24 07/09/24 History mcg (2,000 unit) tablet (Vitamin D3) escitalopram oxalate 10 mg tablet 10 mg PO DAILY 07/09/24 07/09/24 History meclizine 12.5 mg PO TID 07/09/24 07/09/24 History Past Med/Surg History Problem List Laceration of scalp (Acute) Head injury (Acute) Closed intertrochanteric fracture of left hip (Acute) COVID-19 (Acute) COVID-19 (Acute) Acute urinary retention Encounter for pre-operative examination Pre-diabetes DVT prophylaxis Hyperglycemia Vitamin D deficiency Closed intertrochanteric fracture (Acute) Fall (Acute) Acute leg pain (Acute) Anxiety History of breast cancer HTN (hypertension) Medical History Intertrochanteric fracture of right hip Surgical History History of mastectomy Right - 2013 Family History Mother , 92 Old age Father Sudden Sister Lymphoma Leukemia Social History Smoking Status: Never smoker Second Hand Exposure: Yes; Do You Dip or Chew Tobacco: No; Hx Alcohol Use: No Hx Substance Use: No Preferred Language: Marshallese Communication Ability: Effective Beliefs That Will Affect Care: None marital status: Current Living Situation: Family Current Living Situation Comment: Lives with Daughter Other Information That Helps Us Care for You: No Feels Safe at Home: Yes Assistive Devices: Glasses and Walker Review of Systems Review of Systems: All systems reviewed & are unremarkable except as noted in HPI & below Physical Exam Physical Exam: General- Not in acute distress Head- Laceration on top of the head s/p sunil Eyes- PERRL. ENT- oropharynx clear Neck- supple, no JVD. Lungs- clear to auscultation no wheezing or crackles Heart- regular rate and rhythm; no murmur, no gallop. Abdomen- normal bowel sounds, soft, nontender, no distensions Extremities- mild pretibial edema seen. , Left lower extremity is shortened Neuro- alert, oriented PERRL, no facial palsy; no dysarthria; obeys simple commands Results & Data Results & Data Vital Signs (Past 12 Hours) Vital Signs Temp Pulse Pulse Resp BP BP Pulse Ox 07/09/24 21:27 73 07/09/24 19:16 66 19 196/91 H 97 07/09/24 18:40 61 24 96 07/09/24 17:51 62 07/09/24 17:32 36.8 C 60 17 197/89 H 94 07/09/24 17:32 36.8 C 57 L 20 197/89 H 94 O2 Del Method O2 Flow Rate 07/09/24 21:27 07/09/24 19:16 Nasal Cannula 2 07/09/24 18:40 Room Air 07/09/24 17:51 07/09/24 17:32 Room Air 07/09/24 17:32 Room Air Diagnostic Findings Laboratory Results WBC 10.61 K/ul (4.8-10.8) 07/09/24 18:49 RBC 5.11 M/uL (4.20-5.40) 07/09/24 18:49 Hgb 14.8 g/dl (12.0-16.0) 07/09/24 18:49 Hct 44.9 % (37.0-47.0) 07/09/24 18:49 MCV 87.9 fL (80.0-100.0) 07/09/24 18:49 MCH 29.0 pg (25.0-34.0) 07/09/24 18:49 MCHC 33.0 g/dL (32.0-36.0) 07/09/24 18:49 RDW Std Deviation 43.4 fL (36.4-46.3) 07/09/24 18:49 RDW Coeff of Kelsey 13.3 % (11.5-14.5) 07/09/24 18:49 Plt Count 318 K/uL (130-400) 07/09/24 18:49 MPV 10.0 fL (9.4-12.4) 07/09/24 18:49 Immature Gran % (Auto) 0.3 % 07/09/24 18:49 Neut % (Auto) 85.0 % 07/09/24 18:49 Lymph % (Auto) 8.7 % 07/09/24 18:49 [place] % (Auto) 4.5 % 07/09/24 18:49 Eos % (Auto) 0.8 % 07/09/24 18:49 Baso % (Auto) 0.7 % 07/09/24 18:49 Neut # (Auto) 9.03 K/uL (1.40-6.50) H 07/09/24 18:49 Lymph # (Auto) 0.92 K/uL (1.20-3.40) L 07/09/24 18:49 [place] # (Auto) 0.48 K/uL (0.11-0.59) 07/09/24 18:49 Eos # (Auto) 0.08 K/uL (0.00-0.50) 07/09/24 18:49 Baso # (Auto) 0.07 K/uL (0.00-0.20) 07/09/24 18:49 Immature Gran # (Auto) 0.03 K/uL (0.01-0.20) 07/09/24 18:49 PT 11.5 Seconds (9.0-12.0) 07/09/24 18:49 INR 1.1 (0.9-1.1) 07/09/24 18:49 APTT 26 Seconds (21-31) 07/09/24 18:49 PTT Ratio 1.0 07/09/24 18:49 Sodium 136 mmol/L (136-145) 07/09/24 18:49 Potassium 3.9 mmol/L (3.5-5.1) 07/09/24 18:49 Chloride 100 mmol/L (98-107) 07/09/24 18:49 Carbon Dioxide 26 mmol/L (21-32) 07/09/24 18:49 Anion Gap 10 (3-11) 07/09/24 18:49 BUN 18 mg/dl (6-23) 07/09/24 18:49 Creatinine 0.73 mg/dl (0.6-1.2) 07/09/24 18:49 Est Cr Clr Drug Dosing 59.2 ml/min 07/09/24 18:49 eGFR 81.04 07/09/24 18:49 BUN/Creatinine Ratio 24.7 (10-20) H 07/09/24 18:49 Glucose 150 mg/dl (70-99(Fasting)) H 07/09/24 18:49 Calcium 9.5 mg/dl (8.6-10.3) 07/09/24 18:49 Total Bilirubin 0.5 mg/dl (0.2-1.0) 07/09/24 18:49 AST 41 U/L (13-39) H 07/09/24 18:49 ALT 36 U/L (7-52) 07/09/24 18:49 Alkaline Phosphatase 97 U/L (34-104) 07/09/24 18:49 Troponin I High Sens 5.0 pg/ml (0-14) 07/09/24 18:49 Total Protein 8.1 gm/dl (6.0-8.3) 07/09/24 18:49 Albumin 4.5 gm/dl (3.4-5.0) 07/09/24 18:49 Globulin 3.6 gm/dl (2.5-4.0) 07/09/24 18:49 Albumin/Globulin Ratio 1.3 (0.9-2) 07/09/24 18:49 Lipase 29 U/L (11-82) 07/09/24 18:[address] 07/09/24 18:16 Exam(s): CT C SPINE EXAM: CT Cervical Spine Without Intravenous Contrast CLINICAL HISTORY: Reason for exam: fall. TECHNIQUE: Axial computed tomography images of the cervical spine without intravenous contrast. CTDI is 24.26 mGy and DLP is 506.76 mGy-cm. Automated exposure control was utilized for the study. A dose lowering technique was utilized adhering to the principles of ALARA. COMPARISON: No relevant prior studies available. FINDINGS: Vertebrae: No acute fracture. No malalignment. Soft tissues: Unremarkable. Lung apices: Scarring at the right lung apex. IMPRESSION: No acute findings in the cervical spine. Electronically signed by: Lalit Swift MD 07/09/24 21:14 PM Chest X-Ray 07/09/24 18:16 EXAM: XR chest 1V portable CLINICAL HISTORY: FALL HKS/KFK TECHNIQUE: An X-ray image of the chest is obtained in AP projection. COMPARISON: 09/16/2022 CR chest FINDINGS: Pulmonary Parenchyma: There is evidence of reticular shadowing in the left lower zone with some soft tissue haze. No evidence of consolidation, collapse, or focal opacities. No pulmonary nodules are identified. Left costophrenic angle is blunted signifying mil pleural thickening. Right costophrenic angle is clear. Heart and Mediastinum: Heart size and shape are normal. No mediastinal widening or masses. No hilar or mediastinal lymphadenopathy. Bony Thorax: Bony thorax appears intact without fractures or deformities. Right total shoulder reverse arthroplasty. Soft Tissues: Soft tissues overlying the chest wall are unremarkable. IMPRESSION: 1. Left lower zone reticular shadowing with some soft tissue haze showing interval increase on comparison. 2. No acute consolidation or collapse is seen on either side. 3. Right total shoulder reverse arthroplasty. 4. CT chest is advised for further characterization if clinically needed. Electronically signed by Zonia Maradiaga 07-09-2024 7:58 PM Femur X-Ray 07/09/24 18:16 EXAM: XR femur LT 2V routine CLINICAL HISTORY: FALL HKS/KFK. TECHNIQUE: X-ray images of the left femur were obtained in anteroposterior (AP) and lateral projections. COMPARISON: No prior studies are available for comparison. FINDINGS: Bone Structure: The femoral shaft, neck, and proximal and distal regions are normal in structure and alignment. No evidence of acute fractures or dislocations. Joint and Articular Surfaces: Mild osteoarthritic changes of the left hip joint evident by narrow joint space and subchondral sclerosis. Soft Tissues: Periarticular and surrounding soft tissues appear normal. No signs of soft tissue swelling, calcifications, or masses. IMPRESSION: 1. No evidence of acute fractures, or dislocations. 2. Mild osteoarthritic changes of the left hip joint. Disclaimer: A subtle bone abnormality or fracture may not be readily apparent on X-rays. Clinical correlation and further imaging, including CT, MRI, or follow-up X-rays, are advised if clinically warranted. Electronically signed by Zonia Maradiaga 07-09-2024 8:[address] 07/09/24 18:16 Exam(s): CT HEAD Without Contrast EXAM: CT Head Without Intravenous Contrast CLINICAL HISTORY: Reason for exam: fall. TECHNIQUE: Axial computed tomography images of the head/brain without intravenous contrast. CTDI is 38.64 mGy and DLP is 702.46 mGy-cm. Automated exposure control was utilized for the study. A dose lowering technique was utilized adhering to the principles of ALARA. COMPARISON: Head CT 09/22/2022 FINDINGS: Brain: No intracranial hemorrhage. Global parenchymal atrophy and chronic microvascular ischemic changes. Ventricles: Dilated ventricles slightly out of proportion to the degree of volume loss potentially representing NPH. Bones/joints: Unremarkable. No fracture. Soft tissues: Scalp laceration. Sinuses: No acute sinusitis. Mastoid air cells: Unremarkable as visualized. IMPRESSION: 1. No intracranial hemorrhage. 2. Global parenchymal atrophy and chronic microvascular ischemic changes. 3. Scalp laceration. 4. Dilated ventricles slightly out of proportion to the degree of volume loss potentially representing NPH. Electronically signed by: Lalit Swift MD 07/09/24 21:09 PM Pelvis X-Ray 07/09/24 18:16 EXAM: XR pelvis 1-2V routine CLINICAL HISTORY: FALL. TECHNIQUE: X-ray images of the pelvis were obtained in anteroposterior (AP) projection. COMPARISON: dated 08/21/2020. FINDINGS: Bone Structure: Pelvic bones, including the iliac wings, ischium, pubis, and sacrum, are normal and intact. No evidence of fractures, dislocations, or significant osseous lesions. Hip Joints: Internal fixation of the right femoral neck using a dynamic hip screw. Hip joints are normal with preserved joint spaces. No evidence of hip dislocation, subluxation, or significant degenerative changes. Acetabulum: Acetabular structures appear normal and intact. No signs of acetabular fracture or dysplasia. Symphysis Pubis: The symphysis pubis is normal and intact. No evidence of separation or widening. Sacroiliac Joints: Bilateral degenerative sacroiliitis. Soft Tissues: Visualized soft tissues are normal and unremarkable. No soft tissue swelling, calcifications, or masses. IMPRESSION: 1. Internal fixation of the right femoral neck using a dynamic hip screw. 2. Bilateral degenerative sacroiliitis. 3. Lumbar spondylotic changes. Disclaimer: A subtle bone abnormality or fracture may not be readily apparent on X-rays, thus clinical correlation and further imaging including follow-up CT, MRI, or follow-up X-rays are advised as needed. Electronically signed by Zonia Maradiaga 07-09-2024 8:[address] 07/09/24 20:38 Exam(s): CT LEFT HIP Without Contrast EXAM: CT Left Lower Extremity Without Intravenous Contrast, Hip CLINICAL HISTORY: Reason for exam: fall, abnormal x ray. TECHNIQUE: Axial computed tomography images of the left hip without intravenous contrast. CTDI is 25.05 mGy and DLP is 432.62 mGy-cm. Automated exposure control was utilized for the study. A dose lowering technique was utilized adhering to the principles of ALARA. COMPARISON: No relevant prior studies available. FINDINGS: Bones/joints: Acute intertrochanteric fracture on the left. Moderate degenerative changes of the left hip. No acetabular fracture. No pubic ramus fracture. No dislocation. Soft tissues: Unremarkable. IMPRESSION: Acute intertrochanteric fracture on the left. Electronically signed by: Lalit Swift MD 07/09/24 21:59 PM ECG Additional Comments: ECG. Normal sinus rhythm rate 62. Possible left atrial enlargement. Incomplete right bundle branch block. Left anterior fascicular block. QTc 479 Code Status & VTE Plan VTE Prophylaxis Plan VTE Prophylaxis will be ordered: Yes (1) Closed intertrochanteric fracture of left hip Encounter type: initial encounter Fracture alignment: displaced Qualified Code(s): S72.142A - Displaced intertrochanteric fracture of left femur, initial encounter for closed fracture
[2024-07-10] MEDS ORDERED: POLYETHYLENE (MIRALAX) 17 GM PACK PO PRN (00:38)
[2024-07-10] MEDS ORDERED: HYDROmorphone INJ 0.5 MG/0.5 ML SYR IV PRN (00:38)
[2024-07-10] MEDS ORDERED: NITROGLYCERIN SL 0.4 MG/TAB TAB SL PRN (00:38)
[2024-07-10] MEDS ORDERED: LABETALOL HCL IV 5 MG/ML 20ML IV PRN (00:44)
[2024-07-10] MEDS: LABETALOL HCL IV 5 MG/ML 20ML IV STA (01:39)
--- OUTSIDE RECORDS SUMMARY | 2024-07-10 01:42 | External Medical Summary | Summary of Care ---
Author Name Unknown Organization [facility] Address [address] [place] [address] Phone [phone] Care Team Providers Care Tar Worker Name Role Phone Miranda Beaulieu DO Primary Care Provider [phone] Reason for Visit * Reason Comments Home Visit Encounter Details Date Type Department Care Team (Late st Contact Info) Description 07/05/2024 3:00 PM EST Office Visit [facility] [address] [facility], [place] [address] Jing Sequeira PA-C [address] [place] [address] Vertigo*; HTN, goal below 140/90; Cerebrovascular disease Allergies Active Allergy Reactions Criticality Noted Date Comments Amoxicillin 05/02/2018 Hives Latex High 09/17/2022 Other reaction(s): Rash Naproxen 05/19/2016 constipated documented as of this encounter (statuses as of 07/05/2024) Medications Fluocinonide 0.05 % External Gel (Lidex) Apply twice a day as needed for cold sores 30 g 1 10/06/2020 Active Acetaminophen 325 MG Oral Tablet (Tylenol) Take 2 Tablets by mouth every 4 hours as needed for Fever >38C(100.5F), Pain, Mild, Pain, Moderate or Pain, Severe. 100 Tablet 3 12/26/2023 Active Escitalopram Oxalate 10 MG Oral Tablet (Lexapro) Take 1 Tablet by mouth in the morning. 90 Tablet 1 01/31/2024 Active Vitamin D3 50 MCG (2000 UT) Oral Capsule Take 1 Capsule by mouth in the morning. 90 Capsule 1 02/28/2024 Active Meclizine HCl 12.5 MG Oral Tablet (Antivert) Take 1 Tablet by mouth in the morning and 1 Tablet at noon and 1 Tablet in the evening. 07/05/2024 Active documented as of this encounter (statuses as of 07/05/2024) Active Problems Problem Noted Date Diagnosed Date Cerebrovascular disease 06/12/2024 Bilateral leg edema 02/21/2024 History of right breast cancer 07/14/2022 History of hip fracture 01/07/2021 Vitamin D deficiency 08/27/2020 Urinary retention 08/27/2020 Age-related osteoporosis wit h current pathological fracture with routine healing 08/27/2020 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 HTN, goal below 140/90 09/13/2018 Anxiety 09/13/2018 documented as of this encounter (statuses as of 07/05/2024) Resolved Problems Problem Noted Date Diagnosed Date Resolved Date Acquired cerebral ventriculomegaly 01/14/2023 07/19/2023 Closed displaced intertrocha nteric fracture of right femur 08/27/2020 01/07/2021 Prediabetes 08/27/2020 09/25/2020 Overview (08/27/2020): A1C 6.1 on 08/2020 in hospital for hip fx Malignant neoplasm involving both nipple and areola of right breast in female 05/19/2018 024 Overview (04/10/2019): Right, recurrence in 2016. Breast cancer 07/18/2013 04/10/2019 Overview (05/02/2018): right, with recurrance in 2016 documented as of this encounter (statuses as of 07/05/2024) Immunizations Name Administration Dates Next Due COVID-19 mRNA, LNP-s, No Pre serve, 2-Dose Series ([employer]) 04/17/2021,08/31/2020,08/10/2020 Covid-19, Mrna, Lnp-s, Pf, B ivalent, 30 Mcg, IM, 12 yrs and above (Pfizer) 04/12/2022 Pneumococcal Conjugate Vacc, 13 Valent (Prevnar) 05/02/2018 Pneumococcal Polysaccharide PPV23 (Pneumovax) 04/27/2006 Seasonal Influenza, High Dos e, Trivalent, PF, IM (Fluzone HD) 03/31/2024 Seasonal Influenza, PF, 6 M & above, IM , (FluLaval or Fluzone) 04/05/2019,04/06/2018,04/13/2017,04/13,04/10/2015 Seasonal Influenza, Quadriva lent Hd (Fluzone Hd) 04/01/2021 Seasonal Influenza, Quadriva lent Hd, 65+ Yrs 03/24/2023,04/01/2020 documented as of this encounter Social History Tobacco Use Types Packs/Day Years Used Date Smoking Tobacco: Never Smokeless Tobacco: Never Alcohol Use Standard Drinks/Week Comments No 0 (1 standard drink = 0.6 oz pur e alcohol) PHQ-2 Answer Date Recorded PHQ-2 Score 0 05/22/2018 Utilities Answer Date Recorded Do you have trouble paying y our heating, water, or electric bill? (Adult - for ages 18 years and over) Not on file 01/03/2024 Is your family able to pay t he heat, water, or electric bill? (Household - for ages 0-17 years) Not on file 01/03/2024 Does your family have access to good internet? (Household - for ages 0-17 years) Not on file 01/03/2024 Social Connections Answer Date Recorded How often do you feel lonely or isolated from those around you? 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 Answer Date of Assessment Author No 04/09/2021 2:08 PM EDT Minh Goldstein RN * Are you blind or do you have serious difficulty seeing, even when wearing glasses? Answer Date of Assessment Author No 04/09/2021 2:08 PM EDT Minh Goldstein RN * Do you have serious difficulty walking or climbing stairs? (5 years old or older) Answer Date of Assessment Author Yes 04/10/2021 11:19 AM EDT Shira Tovar RN * Do you have difficulty dressing or bathing? (5 years old or older) Answer Date of Assessment Author No 04/09/2021 2:08 PM EDT Minh Goldstein RN * Because of a physical, mental, or emotional condition, do you have difficulty doing errands alone such as visiting a doctors office or shopping? (15 years old or older) Answer Date of Assessment Author No 04/09/2021 2:08 PM EDT Minh Goldstein RN documented as of this encounter Mental Status * Because of a physical, mental, or emotional condition, do you have serious difficulty concentrating, remembering, or making decisions? (5 years old or older) Answer Entry Date Author No 04/09/2021 2:08 PM EDT Minh Goldstein RN documented in this encounter Plan of Treatment Upcoming Encounters Date Type Department Care Team (Late st Contact Info) Description 10/05/2024 3:10 PM EDT Office Visit Family Medicine [address] [phone] [place] [address] Health Maintenance Due Date Last Done Comments DTap/Tdap Vaccines (1 - Tdap) 1959 DXA Scan 1990 Zoster Vaccines (1 of 2) 1990 Adult Wellness Visit 2006 Depression Screening 05/02/2019 05/02/2018 *BISPHONATE OR OTHER ACCEPTABLE MEDICATION NEEDED FOR OSTEOPOROSIS (REFER TO SMARTSET #1146) 08/29/2020 COVID-19 Vaccine ( season) 2024 04/12/2022, 12/28/2021, 04/17/2021, Additional history exists GFR 11/30/2024 12/01/2023, 0801/2023, 10/21/2022, Additional history exists Albumin/Creatinine Ratio 07/14/2025 07/14/2022 Pneumococcal Vaccine: 65+ Years Completed 05/02/2018, 04/27/2006 VITAMIN D LEVEL ONCE IN A LIFETIME-USE SMARTSET# 14992 Completed 12/01/2023, 04/15/2021, 01/07/2021, Additional history exists Influenza Vaccine (FLU shot) Completed , 03/24/2023, 03/24/2023, Additional history exists HPV (Gardasil) Vaccine Aged Out No lo nger eligible based on patient's age to complete this topic Hepatitis B Vaccine Aged Out No longe r eligible based on patient's age to complete this topic MENINGOCOCCAL (MENACTRA/MENVEO) Aged Out No longer eligible based on patient's age to complete this topic documented as of this encounter Medical Devices Implanted Type Area Senior Court Office Assistant Device Identifier Shelf Expiration Date Model / Serial / Lot Baseplate P2 Coated 30mm - [id number] Implanted:Qty : 1 on 04/09/2021 by Sandip Hussein DO at OR [facility] Screw Right: Upper Arm [employer] 02/13/2027 508-32-20 4 / / [id number] Baseplate Glenoid 508-32-103 - [id number] Implanted:Qty : 1 on 04/09/2021 by Sandip Hussein DO at OR [facility] Screw Right: Upper Arm [employer] 01/09/2027 508-32-10 3 / / [id number] Screw Lckg 5x18 506-03-118 - [id number] Implanted:Qty : 1 on 04/09/2021 by Sandip Hussein DO at OR [facility] Right: Upper Arm [employer] 02/12/2027 506-03-11 8 / / [id number] Screw Lckg 5x18 506-03-118 - [id number] Implanted:Qty : 1 on 04/09/2021 by Sandip Hussein DO at OR [facility] Right: Upper Arm [employer] 11/13/2026 506-03-11 8 / / [id number] Screw Lckg 5x18 506-03-118 - [id number] Implanted:Qty : 1 on 04/09/2021 by Sandip Hussein DO at OR [facility] Right: Upper Arm [employer] 02/12/2027 506-03-11 8 / / [id number] Stem Humeral [id number] - [id number] Implanted:Qty : 1 on 04/09/2021 by Sandip Hussein DO at OR [facility] Right: Upper Arm DJO : [employer] 11/12/2026 533-10-10 8 / / [id number] Socket Shell Insert 32mm - [id number] Implanted:Qty : 1 on 04/09/2021 by Sandip Hussein DO at OR [facility] Right: Upper Arm [employer] 12/24/2025 509-02-03 2 / [id number] Vitoss Bbtrauma Foam Pack 1c - [id number] - [id number] Implanted:Qty : 1 on 04/09/2021 by Sandip Hussein DO at OR [facility] Right: Upper Arm [employer] : ORTHOPAEDICS [id number] 06/14/20228617-1379 / [id number] / [id number] Description:DILUTED WITH 2.5 ML SALINE documented as of this encounter Visit Diagnoses Diagnosis Vertigo- Primary Dizziness and giddiness HTN, goal below 140/90 Unspecified essential hypertension Cerebrovascular disease Cerebrovascular disease, unspecified documented in this encounter Advance Directives Documents on File Type Date Recorded Patient Substation Operator Helper Generation Expl anation POLST 10/14/2020 POLST RICH SHORE ORDERS FOR LIFE-SUSTAINING TREATMENT * Full Code (Latest Code Status on File) Date Activated Date Inactivated Comments 04/09/2021 12:35 PM 04/15/2021 4:05 AM This order reflects the patients wishes and were consensually agreed upon. Care Teams Tar Worker Relationship Specialty Start Date End Date Miranda Beaulieu DO [address] [place] [address] [place] [address] PCP - General Internal Medicine 06/23/21 documented as of this encounter
--- OUTSIDE RECORDS SUMMARY | 2024-07-10 01:42 | External Medical Summary | Summary of Care ---
Author Name Unknown Organization [facility] Address [address] [place] [address] Phone [phone] Care Team Providers Care Green Chain Puller Name Role Phone Miranda Beaulieu DO Primary Care Provider + [phone] Reason for Visit * Reason Onset Date Comments Fall 04/13/2024 [facility] Encounter Details Date Type Department Care Team (Late st Contact Info) Description 04/13/2024 Telephone Family Medicine [address] [place] [phone] Miranda Beaulieu DO [address] [place] [address] [place] [phone] Fall ([facility]) Allergies Active Allergy Reactions Criticality Noted Date Comments Amoxicillin 05/02/2018 Hives Latex High 09/17/2022 Other reaction(s): Rash Naproxen 05/19/2016 constipated documented as of this encounter (statuses as of 04/13/2024) Medications Medication Sig Dispensed Refills Start Date End Date Status Fluocinonide 0.05 % External Gel (Lidex) Apply [...] 1 01/31/2024 Active Vitamin D3 50 MCG (1999 UT) Oral Capsule Take 1 Capsule by mouth in the morning. 90 Capsule 1 02/28/2024 Active documented as of this encounter (statuses as of 04/13/2024) Active Problems Problem Noted Date Diagnosed Date Bilateral leg edema 02/21/2024 History of right breast cancer 07/14/2022 History of hip fracture 01/07/2021 Vitamin D deficiency 08/27/2020 Urinary retention 08/27/2020 Age-related osteoporosis wit h current pathological fracture with routine healing 08/27/2020 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 HTN, goal below 140/90 09/13/2018 Anxiety 09/13/2018 documented as of this encounter (statuses as of 04/13/2024) Resolved Problems Problem Noted Date Diagnosed Date Resolved Date Acquired cerebral ventriculomegaly 01/14/2023 07/19/2023 Closed displaced intertrocha nteric fracture of right femur 08/27/2020 01/07/2021 Prediabetes 08/27/2020 09/25/2020 Overview: A1C 6.1 on 08/2020 in hospital for hip fx Malignant neoplasm involving both nipple and areola of right breast in female 05/19/2018 024 Overview: Right, recurrence in 2016. Breast cancer 07/18/2013 04/10/2019 Overview: right, with recurrance in 2016 documented as of this encounter (statuses as of 04/13/2024) Immunizations Name Administration Dates Next Due COVID-19 mRNA, LNP-s, No Pre serve, 2-Dose Series ([employer]) 04/17/2021,08/31/2020,08/10/2020 Covid-19, Mrna, Lnp-s, Pf, B ivalent, [...] years and over) Not on file 01/03/2024 Sex and Gender Information Value Date Recorded Sex Assigned at Not on file Gender Identity Not on file Sexual Orientation Not on file Job Start Date Occupation Industry Not on file Not on file Not on file documented as of this encounter Functional Status Functional Status Response Date of Assess ment Are you deaf or do you have serious difficulty h earing? No 04/09/2021 Are you blind or do you have serious difficulty seeing, even when wearing glasses? No 04/09/2021 Do you have serious difficul ty walking or climbing stairs? (5 years old or older) Yes 04/10/2021 Do you have difficulty dress ing or bathing? (5 years old or older) No 04/09/2021 Because of a physical, menta l, or emotional condition, do you have difficulty doing errands alone such as visiting a doctor s office or shopping? (15 years old or older) No 04/09/20 Cognitive Status Response Date of Assessm ent Because of a physical, menta l, or emotional condition, do you have serious difficulty concentrating, remembering, or making decisions? (5 years old or older) No 04/09/2021 documented as of this encounter Miscellaneous Notes * Telephone Encounter - Miranda Beaulieu DO - 04/13/2024 3:51 PM EDT Okay. Assume she is stable since we have not heard otherwise since. * Telephone Encounter - Nurys Cazares LPN - 04/13/2024 3:35 PM EDT I'm sorry the fax was dated 04/06. * Telephone Encounter - Miranda Beaulieu DO - 04/13/2024 9:53 AM EDT Noted. Recommend neurological checks every 4 hours for today. If any change - to ER for evaluation. * Telephone Encounter - Nurys Cazares LPN - 04/13/2024 9:45 AM EDT Received a fax from [facility]- stating pt was found on the floor lying flat on her back between the closets, denies hitting her head, pain or injury. No apparent s/s of pain or injury. Vitalsigns within normal limits. documented in this encounter Plan of Treatment Upcoming Encounters Date Type Department Care Team (Late st Contact Info) Description 10/05/2024 3:10 PM EDT Office Visit Family Medicine [address] [place] [phone] Miranda Beaulieu DO [address] [place] [address] [place] [address] Health Maintenance Due Date Last Done Comments DTap/Tdap Vaccines (1 - Tdap) 1959 DXA Scan 1990 Zoster Vaccines (1 of 2) 1990 Adult Wellness Visit 2006 Depression Screening 05/02/2019 05/02/2018 *BISPHONATE OR OTHER ACCEPTABLE MEDICATION NEEDED FOR OSTEOPOROSIS (REFER TO SMARTSET #1146) 08/29/2020 COVID-19 Vaccine ( season) 2024 04/12/2022, 12/28/2021, 04/17/2021, Additional history exists GFR 11/30/2024 12/01/2023, 01/2023, 10/21/2022, Additional history exists Albumin/Creatinine Ratio 07/14/2025 07/14/2022 Pneumococcal Vaccine: 65+ Years Completed 05/02/2018, 04/27/2006 VITAMIN D LEVEL ONCE IN A LIFETIME-USE SMARTSET# 32286 Completed 12/01/2023, 04/15/2021, 01/07/2021, Additional history exists [...] this encounter Medical Devices Implanted Type Area Studio Engineer Device Identifier Shelf Expiration Date Model / Serial / Lot Baseplate P2 Coated 30mm - [id number] Implanted:Qty : 1 on 04/09/2021 by Sandip Hussein, DO at OR [facility] Screw Right: Upper Arm [employer] 02/13/2027 508-32-20 4 / / [id number] Baseplate Glenoid 508-32-103 - [id number] Implanted:Qty : 1 on 04/09/2021 by Sandip Hussein, DO at OR [facility] Screw Right: Upper Arm [employer] 01/09/2027 508-32-10 3 / / [id number] Screw Lckg 5x18 506-03-118 - [id number] Implanted:Qty : 1 on 04/09/2021 by Sandip Hussein DO at OR [facility] Right: Upper Arm [employer] 02/12/2027 506-03-11 8 / / [id number] Screw Lckg 5x18 506-03-118 - [id number] Implanted:Qty : 1 on 04/09/2021 by Sandip Hussein DO at OR [facility] Right: Upper Arm [employer] 11/13/2026 506-03-11 8 / / [id number] Screw Lckg 5x18 506-03-118 - [id number] Implanted:Qty : 1 on 04/09/2021 by Sandip Hussein DO at OR [facility] Right: Upper Arm [employer] 02/12/2027 50603-11 8 / / [id number] Stem Humeral [id number] - [id number] Implanted:Qty : 1 on 04/09/2021 by Sandip Hussein DO at OR [facility] Right: Upper Arm DJO : [employer] 11/12/2026 533-10-10 8 / / [id number] Socket Shell Insert 32mm - [id number] Implanted:Qty : 1 on 04/09/2021 by Sandip Hussein DO at OR [facility] Right: Upper Arm [employer] 12/24/2025 509-02-03 2 / / [id number] Vitoss Bbtrauma Foam Pack 1c - [id number] - [id number] Implanted:Qty : 1 on 04/09/2021 by Sandip Hussein DO at OR [facility] Right: Upper Arm [employer] : ORTHOPAEDICS [id number] 06/14/20222882-5509 / [id number] / [id number] Description:DILUTED WITH 2.5 ML SALINE documented as of this encounter Advance Directives Documents on File Type Date Recorded Patient Inside Contractor Sales Expl anation POLST 10/14/2020 POLST R[facility] SHORE ORDERS FOR LIFE-SUSTAINING TREATMENT * Full Code (Latest Code Status on File) Date Activated Date Inactivated Comments 04/09/2021 12:35 PM 04/15/2021 4:05 AM This order reflects the patients wishes and were consensually agreed upon. Care Teams Green Chain Puller Relationship Specialty Start Date End Date Miranda Beaulieu DO [address] [place] [address] [place] [phone] PCP - General Internal Medicine 06/23/21 documented as of this encounter
--- OUTSIDE RECORDS SUMMARY | 2024-07-10 01:42 | External Medical Summary | Summary of Care ---
Author Name Unknown Organization [facility] Address [address] [place] [address] Phone [phone] Care Team Providers Care Overnight Houseperson Name Role Phone Miranda Beaulieu DO Primary Care Provider [phone] Reason for Visit * Reason Comments Home Visit Encounter Details Date Type Department Care Team (Late st Contact Info) Description 06/12/2024 3:00 PM EST Office Visit [facility] [address] [place] [address] Jing Sequeira PA-C [address] [place] [address] Adjustment disorder with depressed mood*; Cerebrovascular disease; HTN, goal below 140/90; History of right breast cancer Allergies Active Allergy Reactions Criticality Noted Date Comments Amoxicillin 05/02/2018 Hives Latex High 09/17/2022 Other reaction(s): Rash Naproxen 05/19/2016 constipated documented as of this encounter (statuses as of 06/12/2024) Medications Fluocinonide 0.05 % External Gel (Lidex) [...] as of this encounter (statuses as of 06/12/2024) Active Problems Problem Noted Date Diagnosed Date Cerebrovascular disease 06/12/2024 Bilateral leg edema 02/21/2024 History of right breast cancer 07/14/2022 History of hip fracture 01/07/2021 Vitamin D deficiency 08/27/2020 Urinary retention 08/27/2020 Age-related osteoporosis wit h current pathological fracture with routine healing 08/27/2020 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 HTN, goal below 140/90 09/13/2018 Anxiety 09/13/2018 documented as of this encounter (statuses as of 06/12/2024) Resolved Problems Problem Noted Date Diagnosed Date [...] as of this encounter (statuses as of 06/12/2024) Immunizations Name Administration Dates Next Due COVID-19 mRNA, LNP-s, No Pre serve, 2-Dose Series ([employer]) 04/17/2021,08/31/2020,08/10/2020 Covid-19, Mrna, Lnp-s, Pf, B ivalent, 30 Mcg, IM, 12 yrs and above ([employer]) 04/12/2022 Pneumococcal Conjugate Vacc, 13 Valent (Prevnar) [...] Job Start 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 Answer Date of Assessment Author No 04/09/2021 2:08 PM Minh Leiva RN * Are you blind or do [...] of Assessment Author No 04/09/2021 2:08 PM LUIS ANGELT Minh Goldstein RN * Because of a physical, mental, or emotional condition, do you have difficulty doing errands alone such as visiting a doctors office or shopping? (15 years old or older) Answer Date of Assessment Author No 04/09/2021 2:08 PM Minh Leiva RN documented as of this encounter Mental Status * Because of a physical, mental, or emotional condition, do you have serious difficulty concentrating, remembering, or making decisions? (5 years old or older) Answer Entry Date Author No 04/09/2021 2:08 PM Minh Leiva RN documented in this encounter Progress Notes * Jing Sequeira PA-C - 06/12/2024 10:20 AM EST Images from the original note were not included. Subjective: Lucille Patel is a 84 year old female. Chief Complaint Patient presents with Home Visit HPI: I was asked to assess pt at [facility] facility where pt resides at request of daughter. According to daughter, pt has been having increasing agitation, being argumentative and accusative towards family when they visit patient at facility. Pt has hx of anxiety and is on Lexapro 10mg daily for this. MRI of brain done in 2022 showed chronic ischemic small vessel disease otherwise normal.Pt will even argue and get upset with staff but pretty much able to be redirected and consoled. When I questioned patient about her mood, she stated "my mood is fine!!". She seemed a bit agitated that I was asking her about this. I explained to patient that her family is just concerned that she is not happy and seems sad. Pt's response was "If they want me to be happier, they can visit me more". I was able to have her discuss happy times with her family and she showed me and explained who the pictures of family are that she has hanging on her wall. I explained to patient that it is normal to feel sad at times and she agreed. She denies any thoughts of self harm. She is eating and drinking and states she sleeps ok at night. She denies having racing thoughts. I asked if I could perform a BIMS or mini mental exam and she adamantly refused. I discussed adjusting, changing or adding medications for her mood and she again adamantly refused. She said I wouldn't be able to sneak any medications in "because I know the medications I am taking". I reassured pt that I would not try to trick her into taking medications without her consent. CBC Results: Results for orders placed or performed in visit on 12/01/23 CBC Result Value Ref Range WBC 5.25 4.00 - 10.80 K/uL RBC 4.84 3.85 - 5.15 M/uL HGB 14.1 12.0 - 15.3 g/dL HCT 43.3 36.0 - 45.2 % MCV 89.5 81.5 - 97.5 fL MCH 29.1 27.0 - 34.0 pg MCHC 32.6 32.0 - 36.0 g/dL RDW 14.0 11.5 - 15.5 % PLT 288 140 - 400 K/uL MPV 11.0 6.6 - 11.1 fL Hemoglobin Results: Lab Results Component Value Date/Time HGB 14.1 12/01/2023 06:03 AM HGB 13.4 09/22/2022 12:00 AM HGB 13.8 09/16/2022 12:00 AM HGB 14.0 07/14/2022 10:31 AM HGB 13.9 07/14/2021 03:54 PM HGB 14.7 08/23/2019 03:29 PM HGB 14.4 04/10/2019 03:51 PM HGB 14.3 05/19/2018 10:13 AM COMPREHENSIVE METABOLIC PANEL Order: [id number] Status: Final result Visible to patient: No (inaccessible in MyChart) Next appt: Today at 03:00 PM in *Primary Care* (Jing Sequeira PA-C) Dx: Vitamin D deficiency; HTN, goal below... 0 Result Notes 1 HM Topic Component Ref Range & Units 6 mo ago BUN 6 - 20 mg/dL 16 CREATININE 0.5 - 1.0 mg/dL 0.7 EGFR >=60 mL/min 86 Comment: eGFR is calculated based on the CKD-EPI 2020 equation SODIUM 135 - 146 mmol/L 138 POTASSIUM 3.5 - 5.1 mmol/L 4.1 CHLORIDE 98 - 107 mmol/L 101 CO2 22 - 32 mmol/L 26 ANION GAP 7 - 15 mmol/L 11 GLUCOSE 70 - 120 mg/dL 92 Albumin 3.8 - 5.0 g/dL 3.8 AST 10 - 35 U/L 23 Alkaline Phosphatase 35 - 130 U/L 93 Bilirubin, Total <=1.2 mg/dL 0.4 CALCIUM 8.4 - 10.2 mg/dL 9.2 Protein 6.0 - 8.3 g/dL 6.8 ALT 10 - 35 U/L 20 Resulting Agency [facility] 57-10 Specimen Collected: 12/01/23 06:03 Last Resulted: 12/01/23 11:35 Creatinine Results: Lab Results Component Value Date/Time CREATININE - [facility] 0.7 12/01/2023 06:03 AM CREATININE - [facility] 0.7 02/21/2023 10:26 AM CREATININE - [facility] 0.6 10/21/2022 10:10 AM CREATININE - [facility] 0.57 (A) 09/22/2022 12:00 AM CREATININE - [facility] 0.63 09/16/2022 12:00 AM CREATININE - [facility] 0.7 07/10/2020 08:54 AM CREATININE - [facility] 0.7 08/23/2019 03:29 PM CREATININE - [facility] 0.8 04/10/2019 03:51 PM CREATININE, RANDOM URINE - [facility] 146 07/14/2022 12:51 PM CREATININE, RANDOM URINE - [facility] 48 09/13/2018 04:38 PM Potassium Results: Lab Results Component Value Date/Time POTASSIUM - [facility] 4.1 12/01/2023 06:03 AM POTASSIUM - [facility] 4.3 02/21/2023 10:26 AM POTASSIUM - [facility] 4.5 10/21/2022 10:10 AM POTASSIUM - [facility] 3.1 (A) 09/22/2022 12:00 AM POTASSIUM - [facility] 3.5 09/16/2022 12:00 AM POTASSIUM - [facility] 4.1 07/10/2020 08:54 AM POTASSIUM - [facility] 5.0 08/23/2019 03:29 PM POTASSIUM - [facility] 4.8 04/10/2019 03:51 PM Sodium Results: Lab Results Component Value Date/Time SODIUM - [facility] 138 12/01/2023 06:03 AM SODIUM - [facility] 141 02/21/2023 10:26 AM SODIUM - [facility] 139 10/21/2022 10:10 AM SODIUM - [facility] 141 07/10/2020 08:54 AM SODIUM - [facility] 141 08/23/2019 03:29 PM SODIUM - [facility] 138 04/10/2019 03:51 PM TSH Results: Lab Results Component Value Date/Time TSH - [facility] 2.70 12/01/2023 06:03 AM TSH - [facility] 0.862 09/16/2022 12:00 AM PMH: Patient Active Problem List Diagnosis HTN, goal below 140/90 Anxiety Recurrent cold sores Vitamin D deficiency Urinary retention Age-related osteoporosis with current pathological fracture with routine healing History of hip fracture History of right breast cancer Bilateral leg edema Cerebrovascular disease Current Outpatient Medications Medication Sig Dispense Refill Fluocinonide 0.05 % External Gel (Lidex) Apply twice a day as needed for cold sores 30 g 1 Acetaminophen 325 MG Oral Tablet (Tylenol) Take 2 Tablets by mouth every 4 hours as needed for Fever >38C(100.5F), Pain, Mild, Pain, Moderate or Pain, Severe. 100 Tablet 3 Escitalopram Oxalate 10 MG Oral Tablet (Lexapro) Take 1 Tablet by mouth in the morning. 90 Tablet 1 Vitamin D3 50 MCG (2000 UT) Oral Capsule Take 1 Capsule by mouth in the morning. 90 Capsule 1 No current facility-administered medications for this visit. Past Medical History: Diagnosis Date Anxiety 09/13/2018 Breast cancer (HCC) 2013 right, with recurrance in 2016 H/O therapeutic radiation HTN, goal below 140/90 09/13/2018 Osteoporosis Past Surgical History: Procedure Laterality Date CT ABDOMEN/PELVIS 06/02/2017 hepatic steatosis, no mets HUMERAL FRACTURE W/ INTERNAL FIXATION Right 04/09/2021 OPEN TREATMENT PROXIMAL HUMERUS FRACTURE performed by Sandip Hussein, at OR [facility] MASTECTOMY, PARTIAL Right 2013 MASTECTOMY, SIMPLE, COMPLETE Right 2015 REMOVE CATARACT, INSERT LENS PROSTH Bilateral 2006 REPAIR HIP FRACTURE(S), W/FIXATION Right 08/21/2020 Dr. Donovan REVERSE TOTAL SHOULDER ARTHROPLASTY Right 04/09/2021 REVERSE TOTAL SHOULDER ARTHROPLASTY performed by Sandip Hussein DO at OR [facility] Review of patient's allergies indicates: Allergen Reactions Latex Other reaction(s): Rash Amoxicillin Hives Naproxen constipated Family History Problem Relation Name Age of Onset No Known Problems Mother Family Status Relation Status Sis Alive Lalo Alive vocational school teacher Son Alive Sis Alive Sis Alive Sis Alive Sis Alive Mo at age 93 Fa at age 50s Social History Tobacco Use Smoking status: Never Smokeless tobacco: Never Substance Use Topics Alcohol use: No Vaping/E-Cigarette Use Vaping/E-Cigarette Use Never User Vaping/E-Cigarette Substances Vaping/E-Cigarette Devices Review of Systems: General: No change in weight, No weakness, No fatigue, and No fevers, sweats, or chills Ears: No recent change in hearing, No tinnitus or vertigo, No ear pain, and No ear discharge Nose: No h/o frequent colds or sinusitis, No nasal stuffiness, No h/o hay fever, and No significantepistaxis Throat/Oropharynx: No teeth or gum problems, No bleeding gums, No tongue complaints, No sore throat, and No recent change in voice or hoarseness Respiratory: No cough, sputum, or hemoptysis, No wheezing, No shortness of breath, and No recent change in breathing Cardiac: No chest pain, No shortness of breath, No dyspnea on exertion, No orthopnea, No paroxysmalnocturnal dyspnea, No edema, No palpitations, and No syncope Gastrointestinal: No dysphagia, No significant heartburn, No significant change in appetite, No nausea, vomiting, diarrhea, or constipation, No hematemesis, No blood in stools or black tarry stools, No abdominal bloating or early satiety, and No abdominal pain Urinary: No urinary frequency, No dysuria, No hematuria, No urinary urgency, No polyuria, No nocturia, No incontinence, No hesitancy, and No sensation of incomplete voiding Skin: No edema, No rash, and No itching Psychiatric: see HPI Objective: Reviewed vital signs Physical Exam: General: alert, healthy, and no distress Nose: no mucosal erythema, no mucosal edema, no purulent discharge Oropharynx: no exudate, no erythema, lips, buccal mucosa, and tongue normal, and mucous membranes are moist Neck: supple, no adenopathy, no bruits, thyroid normal size, non-tender, without nodularity Heart: regular rate & rhythm, no murmur, and no gallops Lungs: chest symmetric with normal AP diameter, no chest deformities noted, no chest wall tenderness, lungs clear to auscultation Abdomen: abdomen soft, non-tender, normal bowel sounds, and no masses or organomegaly Extremities: less than 2 second capillary refill, no joint deformities, effusion, or inflammation Skin: skin color, texture, turgor are normal, no rashes or significant lesions ASSESSMENT/PLAN: Adjustment disorder with depressed mood (Primary) Lengthy discussion held with patient regarding depression and treatment options Refused any adjustment to Lexapro Refused any additional medications Refused counseling or psych consult. Cerebrovascular disease Noted on MRI of brain Could be component of dementia occurring Pt refuses Mini Mental evaluation or BIMs at this time HTN, goal below 140/90 At goal Continue to monitor History of right breast cancer Last documentation of oncology consult 2017 This is monitored by pt's PCP Total time spent with patient: Jing Sequeira PA-C Cosigned by Aaron Manzano MD at 06/12/2024 10:45 AM EST documented in this encounter Plan of Treatment Upcoming Encounters Date Type Department Care Team (Late st Contact Info) Description 10/05/2024 3:10 PM EDT Office Visit Family Medicine [address] [place] [phone] Miranda Beaulieu[address] [place] [address] Health Maintenance Due Date Last Done Comments DTap/Tdap Vaccines (1 - Tdap) 1959 DXA Scan 1990 Zoster Vaccines (1 of 2) 1990 Adult Wellness Visit 2006 Depression Screening 05/02/2019 05/02/2018 *BISPHONATE OR OTHER ACCEPTABLE MEDICATION NEEDED FOR OSTEOPOROSIS (REFER TO SMARTSET #1146) 08/29/2020 COVID-19 Vaccine ( season) 2024 04/12/2022, 12/28/2021, 04/17/2021, Additional history exists GFR 11/30/2024 12/01/2023, 08/0 01/2023, 10/21/2022, Additional history exists Albumin/Creatinine Ratio 07/14/2025 07/14/2022 Pneumococcal Vaccine: 65+ Years Completed 05/02/2018, 04/27/2006 VITAMIN D LEVEL ONCE IN A LIFETIME-USE SMARTSET# 80945 Completed 12/01/2023, 04/15/2021, 01/07/2021, Additional history exists [...] this encounter Medical Devices Implanted Type Area Bone Drier Operator Device Identifier Shelf Expiration Date Model / Serial / Lot Baseplate P2 Coated 30mm - [id number] Implanted:Qty : 1 on 04/09/2021 by Sandip Hussein, at OR [facility] Right: Upper Arm [employer] 02/13/2027 508-32-20 4 / / [id number] Baseplate Glenoid 508-32-103 - [id number] Implanted:Qty : 1 on 04/09/2021 by Sandip Hussein, at OR [facility] Right: Upper Arm [employer] 01/09/2027 508-32-10 3 / / [id number] Screw Lckg 5x18 506-03-118 - [id number] Implanted:Qty : 1 on 04/09/2021 by Sandip Hussein, at OR [facility] Right: Upper Arm [employer] 02/12/2027 506-03-11 8 / / [id number] Screw Lckg 5x18 506-03-118 - [id number] Implanted:Qty : 1 on 04/09/2021 by Sandip Hussein DO at OR [facility] Right: Upper Arm [employer] 11/13/2026 506-03-11 8 / / [id number] Screw Lckg 5x18 506-03-118 - [id number] Implanted:Qty : 1 on 04/09/2021 by Sandip Hussein, at OR [facility] Right: Upper Arm [employer] 02/12/2027 506-03-11 8 / / [id number] Stem Humeral [id number] - [id number] Implanted:Qty : 1 on 04/09/2021 by Sandip Hussein DO at OR [facility] Right: Upper Arm DJO : [employer] 11/12/2026 533-10-10 8 / / [id number] Socket Shell Insert 32mm - [id number] Implanted:Qty : 1 on 04/09/2021 by Sandip Hussein DO at OR [facility] Right: Upper Arm [employer] 12/24/2025 509-02-03 2 / / [id number] Vitoss Bbtrauma Foam Pack 1c - [id number] - [id number] Implanted:Qty : 1 on 04/09/2021 by Sandip Hussein DO at OR [facility] Right: Upper Arm [employer] : [employer]THOPAED[employer] [id number] 06/14/20221700-9070 / [id number] / [id number] Description:DILUTED WITH 2.5 ML SALINE documented as of this encounter Visit Diagnoses Diagnosis Adjustment disorder with depressed mood- Primary Cerebrovascular disease Cerebrovascular disease, unspecified HTN, goal below 140/90 Unspecified essential hypertension History of right breast cancer documented in this encounter Advance Directives Documents on File Type Date Recorded 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 Care Teams Overnight Houseperson Relationship Specialty Start Date End Date Miranda Beaulieu DO [address] [place] [address] [place] [address] PCP - General Internal Medicine 06/23/21 documented as of this encounter
--- OUTSIDE RECORDS SUMMARY | 2024-07-10 01:42 | External Medical Summary | Summary of Care ---
Author Name Unknown Organization [facility] Address [address] [place] [address] Phone [phone] Care Team Providers Care Production Trainer Name Role Phone Miranda Beaulieu DO Primary Care Provider [phone] Reason for Visit * Reason Onset Date Comments Home Health 06/19/2024 Encounter Details Date Type Department Care Team (Late st Contact Info) Description 06/19/2024 Telephone Family Medicine [address] [place] [phone] Miranda Beaulieu DO [address] [place] [address] [place] [phone] Home Health Allergies Active Allergy Reactions Criticality Noted Date Comments Amoxicillin 05/02/2018 Hives Latex High 09/17/2022 Other reaction(s): Rash Naproxen 05/19/2016 constipated documented as of this encounter (statuses as of 06/20/2024) Medications Fluocinonide 0.05 % External Gel (Lidex) [...] as of this encounter (statuses as of 06/20/2024) Active Problems Problem Noted Date Diagnosed Date Cerebrovascular disease 06/12/2024 Bilateral leg edema 02/21/2024 History of right breast cancer 07/14/2022 History of hip fracture 01/07/2021 Vitamin D deficiency 08/27/2020 Urinary retention 08/27/2020 Age-related osteoporosis wit h current pathological fracture with routine healing 08/27/2020 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 HTN, goal below 140/90 09/13/2018 Anxiety 09/13/2018 documented as of this encounter (statuses as of 06/20/2024) Resolved Problems Problem Noted Date Diagnosed Date [...] as of this encounter (statuses as of 06/20/2024) Immunizations Name Administration Dates Next Due COVID-19 mRNA, LNP-s, No Pre serve, 2-Dose Series ([employer]) 04/17/2021,08/31/2020,08/10/2020 Covid-19, Mrna, Lnp-s, Pf, B ivalent, 30 Mcg, IM, 12 yrs and above ([employer]) 04/12/2022 Pneumococcal Conjugate Vacc, 13 Valent (Prevnar) [...] Job 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 Armida is aware * Telephone Encounter - Marta Caruso LPN - 06/19/2024 1:02 PM EST [facility] calling from [facility]. Plan of care faxed over on the May. Calling to check on status. Please advise. Will fax it over again. * Telephone Encounter - Estefany Rosenthal OSA - 06/19/2024 1:00 PM EST Reason for patient's call: Home Health Agency Caller was transferred to Marta at the clinic. documented in this encounter Plan of Treatment Upcoming Encounters Date Type Department Care Team (Late st Contact Info) Description 10/05/2024 3:10 PM EDT Office Visit Family Medicine [address] [place] [phone] Miranda Beaulieu DO [address] [place] [address] [place] [phone] Health Maintenance Due Date Last Done Comments [...] D LEVEL ONCE IN A LIFETIME-USE SMARTSET# 05118 Completed 12/01/2023, 04/15/2021, 01/07/2021, Additional history exists [...] this encounter Medical Devices Implanted Type Area Bag Loader Device Identifier Shelf Expiration Date Model / Serial / Lot Baseplate P2 Coated 30mm - [id number] Implanted:Qty : 1 on 04/09/2021 by Sandip Hussein DO at OR [facility] Screw Right: Upper Arm [employer] 02/13/2027 508-32-20 4 / / [id number] Baseplate Glenoid 508-32-103 - [id number] Implanted:Qty : 1 on 04/09/2021 by Sandip Hussein DO at [facility] Right: Upper Arm [employer] 01/09/2027 508-32-10 3 / / [id number] Screw Lckg 5x18 506-03-118 - [id number] Implanted:Qty : 1 on 04/09/2021 by Sandip Hussein DO at OR [facility] Right: Upper Arm [employer] 02/12/2027 506-03-11 8 / / [id number] Screw Lckg 5x18 506-03-118 - [id number] Implanted:Qty : 1 on 04/09/2021 by Sandip Hussein DO at OR [facility] Right: Upper Arm [employer] 11/13/2026 506-03-11 8 / / [id number] Screw Lckg 5x18 506-03-118 - [id number] Implanted:Qty : 1 on 04/09/2021 by Sandip Hussein DO at [facility] Right: Upper Arm [employer] 02/12/2027 50603-11 8 / / [id number] Stem Humeral [id number] - [id number] Implanted:Qty : 1 on 04/09/2021 by Sandip Hussein DO at OR [facility] Right: Upper Arm DJO : [employer] 11/12/2026 533-10-10 8 / / [id number] Socket Shell Insert 32mm - [id number] Implanted:Qty : 1 on 04/09/2021 by Sandip Hussein DO at [facility] Right: Upper Arm [employer] 12/24/2025 509-02-03 2 / / [id number] Vitoss Bbtrauma Foam Pack 1c - [id number] - [id number] Implanted:Qty : 1 on 04/09/2021 by Sandip Hussein DO at [facility] Right: Upper Arm [employer] : ORTHOPAEDICS [id number] 06/14/2022 9316-7629 / [id number] / [id number] Description:DILUTED WITH 2.5 ML SALINE documented as of this encounter Advance Directives Documents on File Type Date Recorded 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 Care Teams Production Trainer Relationship Specialty Start Date End Date Miranda Beaulieu DO [address] [place] [address] [place] [phone] PCP - General Internal Medicine 06/23/21 documented as of this encounter
--- OUTSIDE RECORDS SUMMARY | 2024-07-10 01:42 | External Medical Summary | Summary of Care ---
Author Name Unknown Organization [facility] Address [address] [place] [address] Phone [phone] Care Team Providers Care Cloud Systems Administrator Name Role Phone Miranda Beaulieu DO Primary Care Provider [phone] Reason for Visit * Reason Onset Date Comments Home Health 06/05/2024 Encounter Details Date Type Department Care Team (Late st Contact Info) Description 06/05/2024 Telephone Family Medicine [address] [place] [phone] Miranda Beaulieu DO [address] [place] [address] [place] [phone] Home Health Allergies Active Allergy Reactions Criticality Noted Date Comments Amoxicillin 05/02/2018 Hives Latex High 09/17/2022 Other reaction(s): Rash Naproxen 05/19/2016 constipated documented as of this encounter (statuses as of 06/07/2024) Medications Fluocinonide 0.05 % External Gel (Lidex) [...] as of this encounter (statuses as of 06/07/2024) Active Problems Problem Noted Date Diagnosed Date Bilateral leg edema 02/21/2024 History of right breast cancer 07/14/2022 History of hip fracture 01/07/2021 Vitamin D deficiency 08/27/2020 Urinary retention 08/27/2020 Age-related osteoporosis wit h current pathological fracture with routine healing 08/27/2020 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 HTN, goal below 140/90 09/13/2018 Anxiety 09/13/2018 documented as of this encounter (statuses as of 06/07/2024) Resolved Problems Problem Noted Date Diagnosed Date [...] as of this encounter (statuses as of 06/07/2024) Immunizations Name Administration Dates Next Due COVID-19 mRNA, LNP-s, No Pre serve, 2-Dose Series ([employer]) 04/17/2021,08/31/2020,08/10/2020 Covid-19, Mrna, Lnp-s, Pf, B ivalent, [...] 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 Answer Date of Assessment Author No 04/09/2021 2:08 PM EDT Minh Goldstein, RN * Are you blind or do [...] 2:08 PM LUIS ANGELT Minh Goldstein RN documented as of this encounter Mental Status * Because of a physical, mental, or emotional condition, do you have serious difficulty concentrating, remembering, or making decisions? (5 years old or older) Answer Entry Date Author No 04/09/2021 2:08 PM EDT Minh Goldstein RN documented in this encounter Miscellaneous Notes * Telephone Encounter - Violette Masterson LPN - 06/07/2024 1:54 PM EST [facility] and asking that the pt's last visit with Jing is faxed as well asthe pt's med list to their office at [facility] [phone]. Both OV note and med list were faxed and confirmation was received. * Telephone Encounter - Bryan Glez LPN - 06/05/2024 12:17 PM EST Admission/Start of Care Admission/Start of Care: Referral ordered by: Miranda Beaulieu DO Referral received for: PT Planned start of care date:Yes, Date 06/05/24 Michell PT, Calling from: [facility] PT Plan of care: 1 times per week for 8 weeks. Focusing on: Lower extremity strength,gait,balance,high risk for falls Concerns: no None Symptoms: none Vitals: T -97.9 P- 69 RR- 18 BP 118/65 SP O2- 97% RA Lung sounds -Clear Narrative: PT start of Care 06/05/24. Advised that additional visit orders will be signed by Miranda Beaulieu DO and to fax to the office for signature They will call with any updates or additional concerns from the upcoming HH visit. Last Office Visit: 02/21/2024 Please fax new orders to [facility] documented in this encounter Plan of Treatment Upcoming Encounters Date Type Department Care Team (Late st Contact Info) Description 10/05/2024 3:10 PM EDT Office Visit [facility] Medicine [address] [place] [phone] Miranda Beaulieu DO [address] [place] [address] [place] [address] Health Maintenance Due Date Last Done Comments [...] D LEVEL ONCE IN A LIFETIME-USE SMARTSET# 56296 Completed 12/01/2023, 04/15/2021, 01/07/2021, Additional history exists [...] this encounter Medical Devices Implanted Type Area Grocery Clerk Selling Device Identifier Shelf Expiration Date Model / Serial / Lot Baseplate P2 Coated 30mm - [id number] Implanted:Qty : 1 on 04/09/2021 by Sandip Hussein, at [facility] Right: Upper Arm [employer] 02/13/2027 508-32-20 4 / / [id number] Baseplate Glenoid 508-32-103 - [id number] Implanted:Qty : 1 on 04/09/2021 by Sandip Hussein, at [facility] Screw Right: Upper Arm [employer] 01/09/2027 508-32-10 3 / / [id number] Screw Lckg 5x18 506-03-118 - [id number] Implanted:Qty : 1 on 04/09/2021 by Sandip Hussein DO at [facility] Right: Upper Arm [employer] 02/12/2027 506-03-11 8 / / [id number] Screw Lckg 5x18 506-03-118 - [id number] Implanted:Qty : 1 on 04/09/2021 by Sandip Hussein DO at [facility] Right: Upper Arm [employer] 11/13/2026 506-03-11 8 / / [id number] Screw Lckg 5x18 506-03-118 - [id number] Implanted:Qty : 1 on 04/09/2021 by Sandip Hussein DO at [facility] Right: Upper Arm [employer] 02/12/2027 506-03-11 8 / / [id number] Stem Humeral [id number] - [id number] Implanted:Qty : 1 on 04/09/2021 by Sandpi Hussein DO at [facility] Right: Upper Arm DJO : [employer] 11/12/2026 533-10-10 8 / / [id number] Socket Shell Insert 32mm - [id number] Implanted:Qty : 1 on 04/09/2021 by Sandip Hussein DO at [facility] Right: Upper Arm [employer] 12/24/2025 509-02-03 2 / / [id number] Vitoss Bbtrauma Foam Pack 1c - [id number] - [id number] Implanted:Qty : 1 on 04/09/2021 by Sandip Hussein DO at OR [facility] Right: Upper Arm [employer] : ORTHOPAEDICS [id number] 06/14/2022 7476-3961 / [id number] / [id number] Description:DILUTED WITH 2.5 ML SALINE documented as of this encounter Advance Directives Documents on File Type Date Recorded Patient Mba Internship Expl anation POLST 10/14/2020 POLST RICH SHORE ORDERS FOR LIFE-SUSTAINING TREATMENT * Full Code (Latest Code Status on File) Date Activated Date Inactivated Comments 04/09/2021 12:35 PM 04/15/2021 4:05 AM This order reflects the patients wishes and were consensually agreed upon. Care Teams Cloud Systems Administrator Relationship Specialty Start Date End Date Miranda Beaulieu DO [address] [place] [address] [place] [phone] PCP - General Internal Medicine 06/23/21 documented as of this encounter
--- OUTSIDE RECORDS SUMMARY | 2024-07-10 01:42 | External Medical Summary | Summary of Care ---
Author Name Unknown Organization [facility] Address [address] [place] [address] Phone [phone] Care Team Providers Care Sr. Manager Marketing Name Role Phone Miranda Beaulieu DO Primary Care Provider [phone] Reason for Visit * Reason Comments Home Visit Encounter Details Date Type Department Care Team (Late st Contact Info) Description 06/27/2024 3:00 PM EST Office Visit [facility] [address] [place] [address] Jing Sequeira PA-C [address] [place] [address] Vertigo*; Cerebrovascular disease; HTN, goal below 140/90; History of right breast cancer; Bilateral impacted cerumen Allergies Active Allergy Reactions Criticality Noted Date Comments Amoxicillin 05/02/2018 Hives Latex High 09/17/2022 Other reaction(s): Rash Naproxen 05/19/2016 constipated documented as of this encounter (statuses as of 06/27/2024) Medications Fluocinonide 0.05 % External Gel (Lidex) [...] as of this encounter (statuses as of 06/27/2024) Active Problems Problem Noted Date Diagnosed Date Cerebrovascular disease 06/12/2024 Bilateral leg edema 02/21/2024 History of right breast cancer 07/14/2022 History of hip fracture 01/07/2021 Vitamin D deficiency 08/27/2020 Urinary retention 08/27/2020 Age-related osteoporosis wit h current pathological fracture with routine healing 08/27/2020 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 HTN, goal below 140/90 09/13/2018 Anxiety 09/13/2018 documented as of this encounter (statuses as of 06/27/2024) Resolved Problems Problem Noted Date Diagnosed Date [...] as of this encounter (statuses as of 06/27/2024) Immunizations Name Administration Dates Next Due COVID-19 mRNA, LNP-s, No Pre serve, 2-Dose Series ([employer]) 04/17/2021,08/31/2020,08/10/2020 Covid-19, Mrna, Lnp-s, Pf, B ivalent, 30 Mcg, IM, 12 yrs and above (Discrete Sport) 04/12/2022 Pneumococcal Conjugate Vacc, 13 Valent (Prevnar) [...] 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 Not on file [...] 3:10 PM EDT Office Visit Family Medicine [address] [phone] [place] [phone] Health Maintenance Due Date Last Done Comments [...] D LEVEL ONCE IN A LIFETIME-USE SMARTSET# 73732 Completed 12/01/2023, 04/15/2021, 01/07/2021, Additional history exists [...] this encounter Medical Devices Implanted Type Area Inside Solar Sales Consultant Device Identifier Shelf Expiration Date Model / Serial / Lot Baseplate P2 Coated 30mm - [id number] Implanted:Qty : 1 on 04/09/2021 by Sandip Hussein DO at [facility] Screw Right: Upper Arm [employer] 02/13/2027 508-32-20 4 / / [id number] Baseplate Glenoid 508-32-103 - [id number] Implanted:Qty : 1 on 04/09/2021 by Sandip Hussein DO at [facility] Screw Right: Upper Arm [employer] 01/09/2027 508-32-10 3 / / [id number] Screw Lckg 5x18 506-03-118 - [id number] Implanted:Qty : 1 on 04/09/2021 by Sandip Hussein DO at [facility] Right: Upper Arm [employer] 02/12/202703- 8 / / [id number] Screw Lckg 5x18 506-03-118 - [id number] Implanted:Qty : 1 on 04/09/2021 by Sandip Hussein DO at [facility] Right: Upper Arm [employer] 11/13/202603-11 8 / / [id number] Screw Lckg 5x18 506-03-118 - [id number] Implanted:Qty : 1 on 04/09/2021 by Sandip Hussein DO at [facility] Right: Upper Arm [employer] 02/12/2027- 8 / / [id number] Stem Humeral 88n716fh - [id number] Implanted:Qty : 1 on 04/09/2021 by Sandip Hussein DO at OR [facility] Right: Upper Arm DJO : [employer] 11/12/2026 533-10-10 [id number] Socket Shell Insert 32mm - [id number] Implanted:Qty : 1 on 04/09/2021 by Sandip Hussein DO at OR [facility] Right: Upper Arm [employer] 12/24/2025 509-02-03 2 / [id number] Vitoss Bbtrauma Foam Pack 1c - [id number] - [id number] Implanted:Qty : 1 on 04/09/2021 by Sandip Hussein DO at OR [facility] Right: Upper Arm [employer] : ORTHOPAEDICS [id number] 06/14/2022 6038-0593 / [id number] / [id number] Description:DILUTED WITH 2.5 ML SALINE documented as of this encounter Visit Diagnoses Diagnosis Vertigo- Primary Dizziness and giddiness Cerebrovascular disease Cerebrovascular disease, unspecified HTN, goal below 140/90 Unspecified essential hypertension History of right breast cancer Bilateral impacted cerumen Impacted cerumen documented in this encounter Advance Directives Documents on File Type Date Recorded Patient Registered Nurse Teacher Expl anation POL 10/14/2020 GERA SHORE ORDERS FOR LIFE-SUSTAINING TREATMENT * Full Code (Latest Code Status on File) Date Activated Date Inactivated Comments 04/09/2021 12:35 PM 04/15/2021 4:05 AM This order reflects the patients wishes and were consensually agreed upon. Care Teams Sr. Manager Marketing Relationship Specialty Start Date End Date Miranda Beaulieu DO [address] [place] [address] [place] [address] PCP - General Internal Medicine 06/23/21 documented as of this encounter
--- OUTSIDE RECORDS SUMMARY | 2024-07-10 01:43 | External Medical Summary | Continuity Of Care Document ---
Author Name Unknown Address [address] [place] [address] Organization [facility] ( ) Care Team Providers Care Admitting Representative Name Role Phone Aaron Manzano Primary Care Provider [phone] Problems Code Description Start Date End Date Status Z86.79 Personal history of other diseases of the circulatory system 12/05/2023 Active R26.89 Other abnormalities of gait and mobility 2023 Active R53.1 Weakness 12/05/2023 Active VITAL SIGNS Date Time Diastolic blood pressure Systolic blood pressure Body height Body weight Temperature SpO2 Blood Sugar Pulse Respirations 34506 601 50618 7 70.00 mm[Hg] - Sitting 123.00 mm[Hg] - Sitting 180.00 NI 97.60 Oral 62.00/ min 22.00/min Immunizations Vaccine Date Status COVID-19 07/19/2003 Completed COVID-19 08/31/2020 Completed COVID-19 04/17/2021 Completed COVID-19 12/28/2021 Completed COVID-19 04/12/2022 Completed Influenza 04/01/2020 Completed Influenza 03/24/2023 Completed (PCV13)Pneumococcal 05/02/2018 Completed (PPSV23)Pneumococcal 04/27/2006 Completed
--- OUTSIDE RECORDS SUMMARY | 2024-07-10 01:43 | External Medical Summary | Summary of Care ---
Author Name Unknown Organization [facility] Address [address] [facility] [address] Phone [phone] Care Team Providers Care Truck Technician Name Role Phone Miranda Beaulieu DO Primary Care Provider Encounter Details Date Type Department Care Team (Late st Contact Info) Description 03/31/2024 11:40 AM EDT Immunization Ancillary [address] [place] [address] [facility] [address] [place] [address] Arrived Allergies Active Allergy Reactions Criticality Noted Date Comments Amoxicillin 05/02/2018 Hives Latex High 09/17/2022 Other reaction(s): Rash Naproxen 05/19/2016 constipated documented as of this encounter (statuses as of 03/31/2024) Medications Medication Sig Dispensed Refills Start Date [...] as of this encounter (statuses as of 03/31/2024) Active Problems Problem Noted Date Diagnosed Date Bilateral leg edema 02/21/2024 History of right breast cancer 07/14/2022 History of hip fracture 01/07/2021 Vitamin D deficiency 08/27/2020 Urinary retention 08/27/2020 Age-related osteoporosis wit h current pathological fracture with routine healing 08/27/2020 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 HTN, goal below 140/90 09/13/2018 Anxiety 09/13/2018 documented as of this encounter (statuses as of 03/31/2024) Resolved Problems Problem Noted Date Diagnosed Date [...] as of this encounter (statuses as of 03/31/2024) Immunizations Name Administration Dates Next Due COVID-19 mRNA, LNP-s, No Pre serve, 2-Dose Series (Casmul) 04/17/2021,08/31/2020,08/10/2020 Covid-19, Mrna, Lnp-s, Pf, B ivalent, 30 Mcg, IM, 12 yrs and above (Casmul) 04/12/2022 Pneumococcal Conjugate Vacc, 13 Valent (Prevnar) [...] (15 years old or older) No 04/09/20 21 Cognitive Status Response Date of Assessm ent Because of a physical, menta l, or emotional condition, do you have serious difficulty concentrating, remembering, or making decisions? (5 years old or older) No 04/09/2021 documented as of this encounter Plan of Treatment Upcoming Encounters Date Type Department Care Team (Late st Contact Info) Description 10/05/2024 3:10 PM EDT Office Visit Family Medicine [address] [place] [phone] [address] [place] [address] Health Maintenance Due Date Last Done Comments [...] D LEVEL ONCE IN A LIFETIME-USE SMARTSET# [id number] Completed 12/01/2023, 04/15/2021, 01/07/2021, Additional history exists [...] this encounter Medical Devices Implanted Type Area Director Career Services Device Identifier Shelf Expiration Date Model / Serial / Lot Baseplate P2 Coated 30mm - [id number] Implanted:Qty : 1 on 04/09/2021 by Sandip Hussein DO at [facility] Right: Upper Arm [employer] 02/13/2027 508-32-20 4 / / [id number] Baseplate Glenoid 508-32-103 - [id number] Implanted:Qty : 1 on 04/09/2021 by Sandip Hussein, at [facility] Right: Upper Arm [employer] 01/09/2027 508-32-10 3 / / [id number] Screw Lckg 5x18 506-03-118 - [id number] Implanted:Qty : 1 on 04/09/2021 by Sandip Hussein, at [facility] Right: Upper Arm [employer] 02/12/2027 50603-11 8 / / [id number] Screw Lckg 5x18 506-03-118 - [id number] Implanted:Qty : 1 on 04/09/2021 by Sandip Hussein DO at [facility] Right: Upper Arm [employer] 11/13/2026 50603-11 8 / / [id number] Screw Lckg 5x18 506-03-118 - [id number] Implanted:Qty : 1 on 04/09/2021 by Sandip Hussein DO at [facility] Right: Upper Arm [employer] 02/12/2027 506-03-11 8 / / [id number] Stem Humeral 57l141am - [id number] Implanted:Qty : 1 on 04/09/2021 by Sandip Hussein, at [facility] Right: Upper Arm DJO : [employer] 11/12/2026 533-10-10 8 / / [id number] Socket Shell Insert 32mm - [id number] Implanted:Qty : 1 on 04/09/2021 by Sandip Hussein DO at [facility] Right: Upper Arm [employer] 12/24/2025 509-02-03 2 / / [id number] Vitoss Bbtrauma Foam Pack 1c - [id number] - [id number] Implanted:Qty : 1 on 04/09/2021 by Sandip Hussein DO at [facility] Right: Upper Arm [employer] : ORTHOPAEDICS [id number] 06/14/202221015663-7370 / [id number] / [id number] Description:DILUTED WITH 2.5 ML SALINE documented as of this encounter Advance Directives Documents on File Type Date Recorded Patient Driller Multiple Spindle Geri BOSS 10/14/2020 [facility] RICH SHORE ORDERS FOR LIFE-SUSTAINING TREATMENT * Full Code (Latest Code Status on File) Date Activated Date Inactivated Comments 04/09/2021 12:35 PM 04/15/2021 4:05 AM This order reflects the patients wishes and were consensually agreed upon. Care Teams Truck Technician Relationship Specialty Start Date End Date Miranda Beaulieu DO [address] [place] [address] [place] [address] PCP - General Internal Medicine 06/23/21 documented as of this encounter
--- OUTSIDE RECORDS SUMMARY | 2024-07-10 01:43 | External Medical Summary | Summary of Care ---
Author Name Unknown Organization [facility] Address [address] [place] [address] Phone [phone] Care Team Providers Care Postal Delivery Officer Name Role Phone Miranda Beaulieu DO Primary Care Provider [phone] Reason for Visit * Reason Comments Re-Check Pt c/o ankle swellin g; ongoing dizziness/unstable. Encounter Details Date Type Department Care Team (Late st Contact Info) Description 02/21/2024 8:50 AM EDT Office Visit Family Medicine [address] [place] [phone] Miranda Beaulieu DO [address] [place] [address] [place] [address] Anxiety*; Venous insufficiency; HTN, goal below 140/90; Vitamin D deficiency Allergies Active Allergy Reactions Criticality Noted Date Comments Amoxicillin 05/02/2018 Hives Latex High 09/17/2022 Other reaction(s): Rash Naproxen 05/19/2016 constipated documented as of this encounter (statuses as of 02/21/2024) Medications Medication Sig Dispensed Refills Start Date [...] the morning. 90 Tablet 1 01/31/2024 Active Polyethylene Glycol 3350 17 GM/SCOOP Oral Powder (MiraLax) Take 17 g by mouth every other day. Dissolve one heaping tablespoon in 8 ounces of water or juice. 116 g 5 12/26/2023 4 Discontinued documented as of this encounter (statuses as of 02/21/2024) Active Problems Problem Noted Date Diagnosed Date Bilateral leg edema 02/21/2024 History of right breast cancer 07/14/2022 History of hip fracture 01/07/2021 Vitamin D deficiency 08/27/2020 Urinary retention 08/27/2020 Age-related osteoporosis wit h current pathological fracture with routine healing 08/27/2020 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 HTN, goal below 140/90 09/13/2018 Anxiety 09/13/2018 documented as of this encounter (statuses as of 02/21/2024) Resolved Problems Problem Noted Date Diagnosed Date [...] as of this encounter (statuses as of 02/21/2024) Immunizations Name Administration Dates Next Due COVID-19 mRNA, LNP-s, No Pre serve, 2-Dose Series (DealPerk) 04/17/2021,08/31/2020,08/10/2020 Covid-19, Mrna, Lnp-s, Pf, B ivalent, 30 Mcg, IM, 12 yrs and above (DealPerk) 04/12/2022 Pneumococcal Conjugate Vacc, 13 Valent (Prevnar) 05/02/2018 Pneumococcal Polysaccharide PPV23 (Pneumovax) 04/27/2006 Seasonal Influenza, PF, 6 M & above, [...] on file documented as of this encounter Last Filed Vital Signs Vital Sign Reading Time Taken Comments Blood Pressure 122/60 02/21/2024 8:45 AM EDT Pulse 66 02/21/2024 8:45 AM EDT Temperature 36.8 C (98.3 F) 02/21/2024 8:45 AM ED T Respiratory Rate - - Oxygen Saturation 95% 02/21/2024 8:45 AM EDT Inhaled Oxygen Concentration - - Weight 84.5 kg (186 lb 3.2 oz) 02/21/2024 8:45 A M EDT Height - - Body Mass Index 32.98 02/21/2023 9:42 AM EDT documented in this encounter Functional Status Functional Status Response [...] No 04/09/2021 documented as of this encounter Progress Notes * Miranda Beaulieu, - 02/21/2024 8:47 AM EDT Subjective: Lucille Patel is a 83 year old female. Chief Complaint Patient presents with Re-Check Pt c/o ankle swelling; ongoing dizziness/unstable. HPI: Lucille Patel presents today with her daughter for routine follow up. Lucille's concerns are dizziness/unsteadiness. She does use a walker to help her ambulate. BP is good here today. Mood varies from day to day. Her daughter thinks she is doing better now that she is on lexapro. Apparently had some type of memory/psychiatric evaluation and was told that her memory loss is short-term. She remains off Femara for her history of breast cancer. She has vitamin D deficiency. Refuses to take a supplement. After discussion, she will consider starting this. Her daughter is concerned about some swelling in her legs. She has had this in the past. No problems with urination. PMH: Patient Active Problem List Diagnosis HTN, goal below 140/90 Anxiety Recurrent cold sores Vitamin D deficiency Urinary retention Age-related osteoporosis with current pathological fracture with routine healing History of hip fracture History of right breast cancer Bilateral leg edema Current Outpatient Medications Medication Sig Dispense Refill [...] mouth in the morning. 90 Tablet 1 No current facility-administered medications for this visit. Review of patient's allergies indicates: Allergen Reactions Latex Other reaction(s): Rash Amoxicillin Hives Naproxen constipated Objective: BP 122/60 | Pulse 66 | Temp 36.8 C (98.3 F) | Wt 84.5 kg (186 lb 3.2 oz) | SpO2 95% | BMI 32.98kg/m | BSA 1.94 m General: alert, healthy, no distress, well nourished, and well developed Neck: supple, no adenopathy, thyroid normal size, non-tender, without nodularity Heart: regular rate & rhythm and no murmur Lungs: chest symmetric with normal AP diameter, no chest deformities noted, normal respiratory rateand rhythm, lungs clear to auscultation Abdomen: abdomen soft and non-tender Extremities: no joint deformities, effusion, or inflammation, (+) non-pitting edema of the bilateral LE with some venous stasis changes Neuro Exam: alert & oriented x 3 with fluent speech, no focal motor/sensory deficits, ambulateswith a Rollator walker Skin: skin color, texture, turgor are normal, no rashes or significant lesions ASSESSMENT/PLAN: Anxiety (Primary) - continue lexapro Venous insufficiency - increase protein intake, limit salt intake, wear compression stockings HTN, goal below 140/90 - well controlled off medication. Vitamin D deficiency - she will consider starting a vitamin D supplement. Follow Up: Return in about 6 months (around 08/23/2024). Miranda Beaulieu DO documented in this encounter Plan of Treatment Upcoming Encounters Date Type Department Care Team (Late st Contact Info) Description 10/05/2024 3:10 PM EDT Office Visit [address] [phone] Miranda Beaulieu DO [address] [place] [address] [place] [address] Health Maintenance Due Date Last Done Comments DTaP,Tdap,and Td Vaccines (1 - Tdap) 1959 DXA Scan 1990 Zoster Vaccines (1 of 2) 1990 Depression Screening 05/02/2019 05/02/2018 *BISPHONATE OR OTHER ACCEPTABLE MEDICATION NEEDED FOR OSTEOPOROSIS (REFER TO SMARTSET #1146) 08/29/2020 COVID-19 Vaccine ( season) 2023 04/12/2022, 12/28/2021, 04/17/2021, Additional history exists Influenza Vaccine (FLU shot) (#1) 2024 03/24/2023, 03/24/2023, 03/15/2022, Additional history exists GFR 11/30/2024 12/01/2023, 08/01/2023, 10/21/2022, Additional history exists Albumin/Creatinine Ratio 07/14/2025 07/14/2022 Pneumococcal Vaccine: 65+ Years Completed 05/02/2018, 04/27/2006 VITAMIN D LEVEL ONCE IN A LIFETIME-USE SMARTSET# 84518 Completed 12/01/2023, 04/15/2021, 01/07/2021, Additional history exists HPV (Gardasil) Vaccine Aged Out No lo nger eligible based on patient's age to complete this topic Hepatitis B Vaccine Aged Out No longe r eligible based on patient's age to complete this topic MENINGOCOCCAL (MENACTRA/MENVEO) Aged Out No longer eligible based on patient's age to complete this topic documented as of this encounter Medical Devices Implanted Type Area Post Graduate Intern Device Identifier Shelf Expiration Date Model / Serial / Lot Baseplate P2 Coated 30mm - [id number] Implanted:Qty : 1 on 04/09/2021 by Sandip Hussein DO at [facility] Right: Upper Arm [employer] 02/13/2027 508-32-20 4 / / [id number] Baseplate Glenoid 508-32-103 - [id number] Implanted:Qty : 1 on 04/09/2021 by Sandip Hussein DO at [facility] Right: Upper Arm [employer] 01/09/2027 508-32-10 3 / / [id number] Screw Lckg 5x18 506-03- - [id number] Implanted:Qty : 1 on 04/09/2021 by Sandip Hussein, at [facility] Right: Upper Arm [employer] 02/12/2027 50603-11 8 / / [id number] Screw Lckg 5x18 506-03-118 - [id number] Implanted:Qty : 1 on 04/09/2021 by Sandip Hussein, at [facility] Right: Upper Arm [employer] 11/13/2026 50603-11 8 / / [id number] Screw Lckg 5x18 506-03- - [id number] Implanted:Qty : 1 on 04/09/2021 by Sandip Hussein, at [facility] Right: Upper Arm [employer] 02/12/2027 [id number] 8 / / [id number] Stem Humeral [id number] - [id number] Implanted:Qty : 1 on 04/09/2021 by Sandip Hussein, at [facility] Right: Upper Arm DJO : [employer] 11/12/2026 533-10-10 8 / / [id number] Socket Shell Insert 32mm - [id number] Implanted:Qty : 1 on 04/09/2021 by Sandip Hussein, at [facility] Right: Upper Arm [employer] 12/24/2025 509-02-03 2 / / [id number] Vitoss Bbtrauma Foam Pack 1c - [id number] - [id number] Implanted:Qty : 1 on 04/09/2021 by Sandip Hussein, at [facility] Right: Upper Arm [employer] : ORTHOPAEDICS [id number] 06/14/20225174-0659 / [id number] / [id number] Description:DILUTED WITH 2.5 ML SALINE documented as of this encounter Visit Diagnoses Diagnosis Anxiety- Primary Anxiety state, unspecified Venous insufficiency Unspecified venous (peripheral) insufficiency HTN, goal below 140/90 Unspecified essential hypertension Vitamin D deficiency Unspecified vitamin D deficiency documented in this encounter Advance Directives Documents on File Type Date Recorded Patient Health And Wellness Manager Expl hollis POLST 10/14/2020 POLST [place] MONE ORDERS FOR LIFE-SUSTAINING TREATMENT * Full Code (Latest Code Status on File) Date Activated Date Inactivated Comments 04/09/2021 12:35 PM 04/15/2021 4:05 AM This order reflects the patients wishes and were consensually agreed upon. Care Teams Postal Delivery Officer Relationship Specialty Start Date End Date Miranda Beaulieu DO [address] [place] [address] [place] [address] PCP - General Internal Medicine 06/23/21 documented as of this encounter"
--- OUTSIDE RECORDS SUMMARY | 2024-07-10 01:43 | External Medical Summary | Summary of Care ---
Author Name Unknown Organization [facility] Address [address] [place] [address] Phone [phone] Care Team Providers Care Data Compiler Name Role Phone Miranda Beaulieu DO Primary Care Provider [phone] Reason for Visit * Reason Onset Date Comments Medication Problem 02/27/2024 Encounter Details Date Type Department Care Team (Late st Contact Info) Description 02/27/2024 Telephone Family Medicine [address] [place] [phone] Miranda Beaulieu DO [address] [place] [address] [place] [id number] Medication Problem Allergies Active Allergy Reactions Criticality Noted Date Comments Amoxicillin 05/02/2018 Hives Latex High 09/17/2022 Other reaction(s): Rash Naproxen 05/19/2016 constipated documented as of this encounter (statuses as of 03/05/2024) Medications Medication Sig Dispensed Refills Start Date [...] as of this encounter (statuses as of 03/05/2024) Active Problems Problem Noted Date Diagnosed Date Bilateral leg edema 02/21/2024 History of right breast cancer 07/14/2022 History of hip fracture 01/07/2021 Vitamin D deficiency 08/27/2020 Urinary retention 08/27/2020 Age-related osteoporosis wit h current pathological fracture with routine healing 08/27/2020 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 HTN, goal below 140/90 09/13/2018 Anxiety 09/13/2018 documented as of this encounter (statuses as of 03/05/2024) Resolved Problems Problem Noted Date Diagnosed Date [...] as of this encounter (statuses as of 03/05/2024) Immunizations Name Administration Dates Next Due COVID-19 mRNA, LNP-s, No Pre serve, 2-Dose Series (SPARQCode) 04/17/2021,08/31/2020,08/10/2020 Covid-19, Mrna, Lnp-s, Pf, B ivalent, 30 Mcg, IM, 12 yrs and above (SPARQCode) 04/12/2022 Pneumococcal Conjugate Vacc, 13 Valent (Prevnar) [...] Telephone Encounter - Brooklyn Garcia RN - 03/05/2024 11:47 AM EDT med list and this note sent to the [facility] * Telephone Encounter - Miranda Beaulieu DO - 02/28/2024 12:17 PM EDT Vitamin D, 2000 units PO daily. Notify [facility] * Telephone Encounter - Brooklyn Gacria RN - 02/28/2024 10:[address] Beaulieu do you want this pt taking Vitamin D? Please order if agreeable(as Historic) and we will let the [facility] know * Telephone Encounter - Aaron Manzano MD - 02/27/2024 3:15 PM EDT This is assisted living patient. Not in SNF * Telephone Encounter - Brooklyn Garcia RN - 02/27/2024 3:[address] Manzano is this patient in-patient [facility] or at the [facility]? Please advise * Telephone Encounter - Milly Swan CPhT - 02/27/2024 11:54 AM EDT Pt daughter calling stating pt's Personal Care Facility, [facility], will not allow pt to be given OTC Vitamin D without order from pt's provider. Please contact Addie Urbano at [phone] to inquire what their preferred method of verifying pt isto be on Vitamin D. Daughter will be providing OTC Vitamin D to Addie Urbano, NO Rx is needed Thank you, Milly Swan CPhT Power Shovel Operator II [facility] 02/27/2024, 11:58 AM documented in this encounter Plan of Treatment Upcoming Encounters Date Type Department Care Team (Late st Contact Info) Description 10/05/2024 3:10 PM EDT Office Visit Family Medicine [address] [place] [phone] [address] [place] [address] Health Maintenance Due Date [...] 03/15/2022, Additional history exists GFR 11/30/2024 12/01/2023, 0801/2023, 10/21/2022, Additional history exists Albumin/Creatinine Ratio 07/14/2025 07/14/2022 Pneumococcal Vaccine: 65+ Years Completed 05/02/2018, 04/27/2006 VITAMIN D LEVEL ONCE IN A LIFETIME-USE SMARTSET# [id number] Completed 12/01/2023, 04/15/2021, 01/07/2021, Additional history exists [...] this encounter Medical Devices Implanted Type Area Shoe Sticks Repairer Device Identifier Shelf Expiration Date Model / Serial / Lot Baseplate P2 Coated 30mm - [id number] Implanted:Qty : 1 on 04/09/2021 by Sandip Hussein DO at [facility] Right: Upper Arm [employer] 02/13/2027 508-32-20 4 / / [id number] Baseplate Glenoid 508-32-103 - [id number] Implanted:Qty : 1 on 04/09/2021 by Sandip Hussein DO at [facility] Right: Upper Arm [employer] 01/09/2027 508-32-10 3 / / [id number] Screw Lckg 5x18 506-03-118 - [id number] Implanted:Qty : 1 on 04/09/2021 by Sandip Hussein DO at [facility] Right: Upper Arm [employer] 02/12/2027 506-03-11 8 / / [id number] Screw Lckg 5x18 506-03-118 - [id number] Implanted:Qty : 1 on 04/09/2021 by Sandip Hussein DO at [facility] Right: Upper Arm [employer] 11/13/2026 506-03-11 8 / / [id number] Screw Lckg 5x18 506-03-118 - [id number] Implanted:Qty : 1 on 04/09/2021 by Sandip Hussein DO at [facility] Right: Upper Arm [employer] 02/12/2027 506-03-11 8 / / [id number] Stem Humeral [id number] - [id number] Implanted:Qty : 1 on 04/09/2021 by Sandip Hussein DO at [facility] Right: Upper Arm DJO : [employer] 11/12/2026 533-10-10 8 / / [id number] Socket Shell Insert 32mm - [id number] Implanted:Qty : 1 on 04/09/2021 by Sandip Hussein DO at [facility] Right: Upper Arm [employer] 12/24/2025 509-02-03 2 / / [id number] Vitoss Bbtrauma Foam Pack 1c - [id number] - [id number] Implanted:Qty : 1 on 04/09/2021 by [facility] Right: Upper Arm [employer] : ORTHOPAEDICS [id number] 06/14/2022 0878-1895 / [id number] / [id number] Description:DILUTED WITH 2.5 ML SALINE documented as of this encounter Advance Directives Documents on File Type Date Recorded Patient Flight Follower Expl anation POLST 10/14/2020 POLST [place] MONE ORDERS FOR LIFE-SUSTAINING TREATMENT * Full Code (Latest Code Status on File) Date Activated Date Inactivated Comments 04/09/2021 12:35 PM 04/15/2021 4:05 AM This order reflects the patients wishes and were consensually agreed upon. Care Teams Data Compiler Relationship Specialty Start Date End Date Miranda Beaulieu DO [address] [place] [address] [place] [address] PCP - General Internal Medicine 06/23/21 documented as of this encounter
--- OUTSIDE RECORDS SUMMARY | 2024-07-10 01:43 | External Medical Summary | Summary of Care ---
Author Name Unknown Organization [facility] Address [address] [place] [address] Phone [phone] Care Team Providers Care Truck Cleaner Name Role Phone Miranda Beaulieu DO Primary Care Provider [phone] Reason for Visit * Reason Onset Date Comments Med Request 01/30/2024 Encounter Details Date Type Department Care Team (Late st Contact Info) Description 01/30/2024 Telephone Family Medicine [address] [place] [address] Miranda Beaulieu DO [address] [place] [address] [place] [address] Med Request Allergies Active Allergy Reactions Criticality Noted Date Comments Amoxicillin 05/02/2018 Hives Latex High 09/17/2022 Other reaction(s): Rash Naproxen 05/19/2016 constipated documented as of this encounter (statuses as of 01/31/2024) Medications Medication Sig Dispensed Refills Start Date End Date Status Fluocinonide 0.05 % External Gel (Lidex) Apply twice a day as needed for cold sores 30 g 1 10/06/2020 Active Acetaminophen 325 MG Oral Tablet (Tylenol) Take 2 Tablets by mouth every 4 hours as needed for Fever >38C(100.5F), Pain, Mild, Pain, Moderate or Pain, Severe. 100 Tablet 3 12/26/2023 Active Polyethylene Glycol 3350 17 GM/SCOOP Oral Powder (MiraLax) Take 17 g by mouth every other day. Dissolve one heaping tablespoon in 8 ounces of water or juice. 116 g 5 12/26/2023 Active Escitalopram Oxalate 10 MG Oral Tablet (Lexapro) Take 1 Tablet by mouth in the morning. 90 Tablet 1 01/31/2024 Active Sertraline HCl 25 MG Oral Tablet (Zoloft) Take 0.5 Tablets by mouth in the morning. 45 Tablet 3 12/26/2023 4 Discontinued documented as of this encounter (statuses as of 01/31/2024) Active Problems Problem Noted Date Diagnosed Date History of right breast cancer 07/14/2022 History of hip fracture 01/07/2021 Vitamin D deficiency 08/27/2020 Urinary retention 08/27/2020 Age-related osteoporosis wit h current pathological fracture with routine healing 08/27/2020 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 HTN, goal below 140/90 09/13/2018 Anxiety 09/13/2018 Malignant neoplasm involving both nipple and areola of right breast in female 05/19/2018 Overview: Right, recurrence in 2015. documented as of this encounter (statuses as of 01/31/2024) Resolved Problems Problem Noted Date Diagnosed Date Resolved Date Acquired cerebral ventriculomegaly 01/14/2023 07/19/2023 Closed displaced intertrocha nteric fracture of right femur 08/27/2020 01/07/2021 Prediabetes 08/27/2020 09/25/2020 Overview: A1C 6.1 on 08/2020 in hospital for hip fx Breast cancer 07/18/2013 04/10/2019 Overview: right, with recurrance in 2016 documented as of this encounter (statuses as of 01/31/2024) Immunizations Name Administration Dates Next Due COVID-19 mRNA, LNP-s, No Pre serve, 2-Dose Series (Scienion) 04/17/2021,08/31/2020,08/10/2020 Covid-19, Mrna, Lnp-s, Pf, B ivalent, 30 Mcg, IM, 12 yrs and above (Scienion) 04/12/2022 Pneumococcal Conjugate Vacc, 13 Valent (Prevnar) [...] Telephone Encounter - Brooklyn Garcia RN - 01/31/2024 1:51 PM EDT Daughter aware * Telephone Encounter - Miranda Beaulieu DO - 01/31/2024 1:09 PM EDT Sent to pharmacy. Notify daughter. * Telephone Encounter - Brooklyn Garcia RN - 01/30/2024 3:00 PM EDT Daughter stopped in to talk to us today. She is having issues with [facility] and her mom's anxiety meds. They will not give her the Zoloft that pt took them from [facility] because it has to be cut, and they will not do that. The daughter does not like the Youneeq that [facility] uses, because of how they bill things. Also she said her mom gained weight before when she took Zoloft . Daughter is asking if you could put the patient back on Escitalopram 10 mg, that she got in the past She has an appt to see you on 02/21/24 Please call daughter Rekha [phone] documented in this encounter Plan of Treatment Upcoming Encounters Date Type Department Care Team (Late st Contact Info) Description 02/21/2024 8:50 AM EDT Office Visit Family Medicine [address] [place] [phone] Miranda Beaulieu DO [address] [place] [address] [place] [phone] Health Maintenance Due Date Last Done Comments DTaP,Tdap,and Td Vaccines (1 - Tdap) 1959 DXA Scan 1990 Zoster Vaccines (1 of 2) 1990 Depression Screening 05/02/2019 05/02/2018 *BISPHONATE OR OTHER ACCEPTABLE MEDICATION NEEDED FOR OSTEOPOROSIS (REFER TO SMARTSET #1146) 08/29/2020 COVID-19 Vaccine (5 - season) 2023 04/12/2022, 04/17/2021, 08/31/2020, Additional history exists Influenza Vaccine (FLU shot) (#1) 2024 03/24/2023, 04/01/2021, 04/01/2020, Additional history exists GFR 11/30/2024 12/01/2023, 08/0 01/2023, 10/21/2022, Additional history exists Albumin/Creatinine Ratio 07/14/2025 07/14/2022 Pneumococcal Vaccine: 65+ Years Completed 05/02/2018, 04/27/2006 VITAMIN D LEVEL ONCE IN A LIFETIME-USE SMARTSET# 65836 Completed 12/01/2023, 04/15/2021, 01/07/2021, Additional history exists [...] this encounter Medical Devices Implanted Type Area Account Manager Sales Representative Device Identifier Shelf Expiration Date Model / Serial / Lot Baseplate P2 Coated 30mm - [id number] Implanted:Qty : 1 on 04/09/2021 by Sandip Hussein, DO at [facility] Right: Upper Arm [employer] 02/13/2027 508-32-20 4 / / [id number] Baseplate Glenoid 508-32-103 - [id number] Implanted:Qty : 1 on 04/09/2021 by Sandip Hussein, at [facility] Right: Upper Arm [employer] 01/09/2027 508-32-10 3 / / [id number] Screw Lckg 5x18 506-03-118 - [id number] Implanted:Qty : 1 on 04/09/2021 by Sandip Hussein DO at OR [facility] Right: Upper Arm [employer] 02/12/2027 506-03-11 8 / / [id number] Screw Lckg 5x18 506-03-118 - [id number] Implanted:Qty : 1 on 04/09/2021 by Sandip Hussein DO at OR [facility] Right: Upper Arm [employer] 11/13/2026 506-03-11 8 / / [id number] Screw Lckg 5x18 506-03-118 - [id number] Implanted:Qty : 1 on 04/09/2021 by Sandip Hussein DO at OR [facility] Right: Upper Arm [employer] 02/12/2027 50603-11 8 / / [id number] Stem Humeral [id number] - [id number] Implanted:Qty : 1 on 04/09/2021 by Sandip Hussein DO at OR [facility] Right: Upper Arm DJO : [employer] 11/12/2026 533-10-10 8 / / [id number] Socket Shell Insert 32mm - [id number] Implanted:Qty : 1 on 04/09/2021 by Sandip Hussein DO at OR [facility] Right: Upper Arm [employer] 12/24/2025 509-02-03 2 / / [id number] Vitoss Bbtrauma Foam Pack 1c - [id number] - [id number] Implanted:Qty : 1 on 04/09/2021 by Sandip Hussein DO at OR [facility] Right: Upper Arm [employer] : ORTHOPAEDICS [id number] 06/14/2022 5965-9524 / [id number] / [id number] Description:DILUTED WITH 2.5 ML SALINE documented as of this encounter Advance Directives Documents on File Type Date Recorded Patient Business Analyst Intern Expl anation GERA 10/14/2020 GERA [place]ORE ORDERS FOR LIFE-SUSTAINING TREATMENT * Full Code (Latest Code Status on File) Date Activated Date Inactivated Comments 04/09/2021 12:35 PM 04/15/2021 4:05 AM This order reflects the patients wishes and were consensually agreed upon. Care Teams Truck Cleaner Relationship Specialty Start Date End Date Miranda Beaulieu DO [address] [place] [address] [place] [phone] PCP - General Internal Medicine 06/23/21 documented as of this encounter
[2024-07-10] MEDS: SODIUM CHLORIDE 0.9% 1,000 ML IV SCH (01:45)
[2024-07-10] MEDS: ACETAMINOPHEN 325 MG TAB PO PRN (01:46)
--- OUTSIDE RECORDS SUMMARY | 2024-07-10 03:14 | External Medical Summary | Summary of Care ---
Author Name Unknown Organization [facility] Address [address] [place] [address] Phone [phone] Care Team Providers Care District Captain Name Role Phone Miranda Beaulieu DO Primary Care Provider + [phone] Reason for Visit * Reason Onset Date Comments Advice 06/18/2024 Encounter Details Date Type Department Care Team (Late st Contact Info) Description 06/18/2024 Telephone Family Medicine [address] [place] [phone] Miranda Beaulieu DO [address] [place] [address] [place] [phone] Advice Allergies Active Allergy Reactions Criticality Noted Date Comments Amoxicillin 05/02/2018 Hives Latex High 09/17/2022 Other reaction(s): Rash Naproxen 05/19/2016 constipated documented as of this encounter (statuses as of 07/09/2024) Medications Fluocinonide 0.05 % External Gel (Lidex) [...] as of this encounter (statuses as of 07/09/2024) Active Problems Problem Noted Date Diagnosed Date Cerebrovascular disease 06/12/2024 Bilateral leg edema 02/21/2024 History of right breast cancer 07/14/2022 History of hip fracture 01/07/2021 Vitamin D deficiency 08/27/2020 Urinary retention 08/27/2020 Age-related osteoporosis wit h current pathological fracture with routine healing 08/27/2020 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 HTN, goal below 140/90 09/13/2018 Anxiety 09/13/2018 documented as of this encounter (statuses as of 07/09/2024) Resolved Problems Problem Noted Date Diagnosed Date [...] as of this encounter (statuses as of 07/09/2024) Immunizations Name Administration Dates Next Due COVID-19 mRNA, LNP-s, No Pre serve, 2-Dose Series ([employer]) 04/17/2021,08/31/2020,08/10/2020 Covid-19, Mrna, Lnp-s, Pf, B ivalent, 30 Mcg, IM, 12 yrs and above ([employer]) 04/12/2022 Pneumococcal Conjugate Vacc, 13 Valent (Prevnar) [...] Job Start Date Job End Date 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 Zavala 07/09/2024 * Telephone Encounter - Miranda Beaulieu DO - 06/19/2024 1:55 PM EST Needs seen. Please schedule appt. Ask her to bring along a list of her BP/weights from the assisted living facility to the appointment. * Telephone Encounter - Mary Spangler CMA - 06/18/2024 3:32 PM EST Please see message and advise * Telephone Encounter - Julia Croft OSA - 06/18/2024 11:51 AM EST Patient daughter calling stating that her mom is currently in personal care in [place]. She gets weight and bp checks monthly. Her daughter states she was taken off of her BP med due to it being steady. Recently mom has gained weight and high BP now. Currently weighing 190, when she usually weighs 170. Her BP 140/100 due to weight gain. documented in this encounter Plan of Treatment Upcoming Encounters Date Type Department Care Team (Late st Contact Info) Description 07/09/2024 4:00 PM EST Office Visit [address] [phone] Miranda Freedman MD [address] [place] [address] [place] [phone] 10/05/2024 3:10 PM EDT Office Visit [address] [phone] Miranda Beaulieu DO [address] [place] [address] [place] [phone] Health Maintenance Due Date Last Done Comments [...] D LEVEL ONCE IN A LIFETIME-USE SMARTSET# [id number] Completed 12/01/2023, 04/15/2021, 01/07/2021, Additional history exists [...] this encounter Medical Devices Implanted Type Area Export Administrator Device Identifier Shelf Expiration Date Model / Serial / Lot Baseplate P2 Coated 30mm - [id number] Implanted:Qty : 1 on 04/09/2021 by Sandip Hussein DO at OR [facility] Screw Right: Upper Arm [employer] 02/13/2027 508-32-20 4 / / [id number] Baseplate Glenoid 508-32-103 - [id number] Implanted:Qty : 1 on 04/09/2021 by Sandip Hussein DO at [facility] Screw Right: Upper Arm [employer] 01/09/2027 508-32-10 3 / / [id number] Screw Lckg 5x18 506-03-118 - [id number] Implanted:Qty : 1 on 04/09/2021 by Sandip Hussein DO at OR [facility] Right: Upper Arm [employer] 02/12/2027 50603-11 8 / / [id number] Screw Lckg 5x18 506-03-118 - [id number] Implanted:Qty : 1 on 04/09/2021 by Sandip Hussein DO at OR [facility] Right: Upper Arm [employer] 11/13/2026 50603-11 8 / / [id number] Screw Lckg 5x18 506-03-118 - [id number] Implanted:Qty : 1 on 04/09/2021 by Sandip Hussein DO at OR [facility] Right: Upper Arm [employer] 02/12/2027 50603-11 8 / / [id number] Stem Humeral [id number] - [id number] Implanted:Qty : 1 on 04/09/2021 by Sandip Hussein DO at OR [facility] Right: Upper Arm DJO : [employer] 11/12/2026 533-10-10 [id number] Socket Shell Insert 32mm - [id number] Implanted:Qty : 1 on 04/09/2021 by Sandip Hussein DO at OR [facility] Right: Upper Arm [employer] 12/24/2025 509-02-03 2 / [id number] Vitoss Bbtrauma Foam Pack 1c - [id number] - [id number] Implanted:Qty : 1 on 04/09/2021 by Sandip Hussein DO at OR [facility] Right: Upper Arm [employer]RAY[place] : ORTHOPAEDICS [id number] 06/14/2022 6461-1214 / [id number] / [id number] Description:DILUTED WITH 2.5 ML SALINE documented as of this encounter Advance Directives Documents on File Type Date Recorded Patient Keg Inspector Expl anation POLST 10/14/2020 POLST [facility] ORDERS FOR LIFE-SUSTAINING TREATMENT * Full Code (Latest Code Status on File) Date Activated Date Inactivated Comments 04/09/2021 12:35 PM 04/15/2021 4:05 AM This order reflects the patients wishes and were consensually agreed upon. Care Teams District Captain Relationship Specialty Start Date End Date Miranda Beaulieu DO [address] [place] [address] [place] [phone] PCP - General Internal Medicine 06/23/21 documented as of this encounter
--- NOTE | 2024-07-10 06:58 | Ultrasound Report ---
EXAM: US venous doppler LE BI CLINICAL HISTORY: Leg pain and swelling. TECHNIQUE: Ultrasound examination of bilateral lower extremity veins was performed in real-time and duplex. One or more of the following were performed- spectral analysis, resistive index, waveform analysis, and pulsed Doppler. COMPARISON: None. FINDINGS: Normal phasic, non-pulsatile, and spontaneous flow is noted in bilateral GSV, common femoral, superficial femoral, popliteal, posterior tibial, peroneal and anterior tibial veins. Visualized veins of both lower extremities demonstrate normal compressibility. No sonographic evidence of acute deep vein thrombosis (DVT) is detected in the visualized veins of both lower extremities. Compression and Augmentation: All evaluated veins compress fully with applied transducer pressure. Augmentation of venous flow is noted with distal compression. Additional Findings: No evidence of intraluminal thrombus. IMPRESSION: No sonographic evidence of acute DVT was detected in bilateral GSV, common femoral, superficial femoral, popliteal, posterior tibial, peroneal and anterior tibial veins at the time of examination. Disclaimer: DVT could be missed early in the disease when clot burden is minimal. For patients with moderate and high pretest probability of DVT and negative ultrasound, the [employer] clinical guidelines recommend testing with a D-dimer assay or repeat ultrasound in 5-7 days. If symptoms worsen, the Society of radiologists in ultrasound recommends repeating ultrasound even earlier. Electronically signed by Zonia Maradiaga 07-10-2024 06:58 AM
[2024-07-10 07:04] LABS: Basophils # (auto) 0.02 K/uL (0.00-0.20); Basophils % (auto) 0.2 %; Hemoglobin 12.4 g/dl (12.0-16.0); Immature Granulocytes # (auto) 0.02 K/uL (0.01-0.20); Immature Granulocytes % (auto) 0.2 %; Lymphocytes # (auto) 1.04 K/uL (1.20-3.40); Lymphocytes % (auto) 10.9 %; Mean Corpuscular Hemoglobin 29.1 pg (25.0-34.0); Mean Corpuscular Hgb Conc 33.5 g/dL (32.0-36.0); Mean Corpuscular Volume 86.9 fL (80.0-100.0); Mean Platelet Volume 10.3 fL (9.4-12.4); Monocytes # (auto) 0.89 K/uL (0.11-0.59); Monocytes % (auto) 9.4 %; Neutrophils # (auto) 7.53 K/uL (1.40-6.50); Neutrophils % (auto) 79.3 %; Platelet Count 287 K/uL (130-400); RDW Coefficient of Variation 13.1 % (11.5-14.5); RDW Standard Deviation 41.6 fL (36.4-46.3); Red Blood Count 4.26 M/uL (4.20-5.40)
[2024-07-10 07:20] LABS: BUN Creatinine Ratio 30.2 (10-20); Calcium 8.7 mg/dl (8.6-10.3); Creatinine Clr Calc Pharmacy 83.1 ml/min; Magnesium 1.8 mg/dl (1.7-2.4); Potassium 4.1 mmol/L (3.5-5.1)
[2024-07-10 07:28] LABS: Troponin I High Sensitivity 10.3 pg/ml (0-14)
--- NOTE | 2024-07-10 07:44 | Orthopedic Consultation ---
Date of Consultation July 10, 2024 Assessment & Plan (1) Closed intertrochanteric fracture of left hip: The patient is a 84 year old female who sustained a left hip fracture from a ground level fall. The patients treatment options of conservative versus surgical intervention were discussed. Since the patient was an ambulatory prior to the injury and to avoid the risks of bed sores, pulmonary complications, and to give the best chance for ambulation, I recommended surgery. The patient understands the risks of surgery, which include but are not limited to: bleeding, infection, re-operation, damage to nerves and arteries, continued pain, failure of the hardware, mal-union, non-union, DVT, and . In addition the patient is aware of the 20-30% morbidity associated with hip fracture for up to 1 year following a hip fracture. The patient has elected to proceed with surgery and the informed consent was signed. The patient understands all of these instructions and explanations, all of their questions have been satisfactorily addressed. Placed on the add-on schedule for later today. Will proceed with surgery if medically stable. Patient has and will remain NPO since midnight. The patient will be NWB. TEDs and foot pumps to RLE. Antibiotics TXA jury consultant to OR. Present on Admission?: Yes History of Present Illness Reason for Consultation: Left hip fracture Requesting Physician: Laureano Dominguez MD Attending Physician: Enid Rich MD History of Present Illness 84 yo F who ambulates with a walker sustained a ground level fall injuring her Left hip. She has been admitted to the hospitalist service. I was consulted for further evaluation and treatment of her left hip fracture found on CT. She has been NPO. Allergies Allergy/AdvReac Type Severity Reaction Status Date / Time amoxicillin Allergy Intermediate Rash Verified 07/10/24 12:02 latex Allergy Intermediate Rash Verified 07/10/24 12:02 Home Medications Medication Instructions Recorded Confirmed Type cholecalciferol (vitamin D3) 50 50 mcg PO DAILY 07/09/24 07/09/24 History mcg (2,000 unit) tablet (Vitamin D3) escitalopram oxalate 10 mg tablet 10 mg PO DAILY 07/09/24 07/09/24 History meclizine 12.5 mg PO TID 07/09/24 07/09/24 History Patient History Medical History Intertrochanteric fracture of right hip Surgical History History of mastectomy Right - 2013 Family History Mother , 92 Old age Father Sudden Sister Lymphoma Leukemia Social History Smoking Status: Never smoker Second Hand Exposure: Yes; Do You Dip or Chew Tobacco: No; Hx Alcohol Use: No Hx Substance Use: No Preferred Language: Bahraini Communication Ability: Effective Beliefs That Will Affect Care: None marital status: Current Living Situation: Family Current Living Situation Comment: Lives with Daughter Other Information That Helps Us Care for You: No Feels Safe at Home: Yes Assistive Devices: Glasses and Walker Physical Exam Physical Exam: LLE: Sensation to light touch intact distally. 2+ DP pulse. Motor: gastroc soleus, Tib ant, EHL intact. Calf soft and non-tender. + TTP groin. Results & Data Vital Signs (Past 12 Hours) Vital Signs Temp Pulse Pulse Pulse Resp BP BP 07/10/24 07:23 36.9 C 61 18 144/72 H 07/10/24 03:53 36.7 C 67 18 161/77 H 07/10/24 01:39 203/81 H 07/10/24 00:21 36.7 C 81 14 203/81 H 07/10/24 00:10 79 07/09/24 23:31 66 18 174/90 H 07/09/24 22:00 64 21 186/90 H 07/09/24 21:27 73 07/09/24 21:00 71 18 188/90 H Pulse Ox O2 Del Method O2 Flow Rate 07/10/24 07:23 95 Room Air 07/10/24 03:53 94 Room Air 07/10/24 01:39 07/10/24 00:21 94 Room Air 07/10/24 00:10 07/09/24 23:31 97 07/09/24 22:00 91 Nasal Cannula 2 07/09/24 21:27 07/09/24 21:00 97 Nasal Cannula 2 Laboratory Results Laboratory Results WBC 9.50 K/ul (4.8-10.8) 07/10/24 06:27 RBC 4.26 M/uL (4.20-5.40) 07/10/24 06:27 Hgb 12.4 g/dl (12.0-16.0) 07/10/24 06:27 Hct 37.0 % (37.0-47.0) 07/10/24 06:27 MCV 86.9 fL (80.0-100.0) 07/10/24 06: MCH 29.1 pg (25.0-34.0) 07/10/24 06: MCHC 33.5 g/dL (32.0-36.0) 07/10/24 06: RDW Std Deviation 41.6 fL (36.4-46.3) 07/10/24 06: RDW Coeff of Kelsey 13.1 % (11.5-14.5) 07/10/24 06: Plt Count 287 K/uL (130-400) 07/10/24 06: MPV 10.3 fL (9.4-12.4) 07/10/24 06:27 Immature Gran % (Auto) 0.2 % 07/10/24 06:27 Neut % (Auto) 79.3 % 07/10/24 06:27 Lymph % (Auto) 10.9 % 07/10/24 06:27 Laurel % (Auto) 9.4 % 07/10/24 06:27 Eos % (Auto) 0.0 % 07/10/24 06: Baso % (Auto) 0.2 % 07/10/24 06:27 Neut # (Auto) 7.53 K/uL (1.40-6.50) H 07/10/24 06:27 Lymph # (Auto) 1.04 K/uL (1.20-3.40) L 07/10/24 06:27 Laurel # (Auto) 0.89 K/uL (0.11-0.59) H 07/10/24 06:27 Eos # (Auto) 0.00 K/uL (0.00-0.50) 07/10/24 06:27 Baso # (Auto) 0.02 K/uL (0.00-0.20) 07/10/24 06:27 Immature Gran # (Auto) 0.02 K/uL (0.01-0.20) 12/24/24 06:27 PT 11.5 Seconds (9.0-12.0) 07/09/24 18:49 INR 1.1 (0.9-1.1) 07/09/24 18:49 APTT 26 Seconds (21-31) 07/09/24 18:49 PTT Ratio 1.0 07/09/24 18:49 Sodium 136 mmol/L (136-145) 07/10/24 06:27 Potassium 4.1 mmol/L (3.5-5.1) 07/10/24 06:27 Chloride 103 mmol/L (98-107) 07/10/24 06:27 Carbon Dioxide 25 mmol/L (21-32) 07/10/24 06:27 Anion Gap 8 (3-11) 07/10/24 06:27 BUN 16 mg/dl (6-23) 07/10/24 06:27 Creatinine 0.53 mg/dl (0.6-1.2) L 07/10/24 06:27 Est Cr Clr Drug Dosing 83.1 ml/min 07/10/24 06:27 eGFR 91.14 07/10/24 06:27 BUN/Creatinine Ratio 30.2 (10-20) H 07/10/24 06:27 Glucose 143 mg/dl (70-99(Fasting)) H 07/10/24 06:27 Calcium 8.7 mg/dl (8.6-10.3) 07/10/24 06:27 Magnesium 1.8 mg/dl (1.7-2.4) 07/10/24 06:27 Total Bilirubin 0.5 mg/dl (0.2-1.0) 07/09/24 18:49 AST 41 U/L (13-39) H 07/09/24 18:49 ALT 36 U/L (7-52) 07/09/24 18:49 Alkaline Phosphatase 97 U/L (34-104) 07/09/24 18:49 Troponin I High Sens 10.3 pg/ml (0-14) D 07/10/24 06:27 Total Protein 8.1 gm/dl (6.0-8.3) 07/09/24 18:49 Albumin 4.5 gm/dl (3.4-5.0) 07/09/24 18:49 Globulin 3.6 gm/dl (2.5-4.0) 07/09/24 18:49 Albumin/Globulin Ratio 1.3 (0.9-2) 07/09/24 18:49 Lipase 29 U/L (11-82) 07/09/24 18:[address] 07/09/24 18:16 Exam(s): CT C SPINE EXAM: CT Cervical Spine Without Intravenous Contrast CLINICAL HISTORY: Reason for exam: fall. TECHNIQUE: Axial computed tomography images of the cervical spine without intravenous contrast. CTDI is 24.26 mGy and DLP is 506.76 mGy-cm. Automated exposure control was utilized for the study. A dose lowering technique was utilized adhering to the principles of ALARA. COMPARISON: No relevant prior studies available. FINDINGS: Vertebrae: No acute fracture. No malalignment. Soft tissues: Unremarkable. Lung apices: Scarring at the right lung apex. IMPRESSION: No acute findings in the cervical spine. Electronically signed by: Lalit Swift MD 07/09/24 21:14 PM Chest X-Ray 07/09/24 18:16 EXAM: XR chest 1V portable CLINICAL HISTORY: FALL HKS/KFK TECHNIQUE: An X-ray image of the chest is obtained in AP projection. COMPARISON: 09/16/2022 CR chest FINDINGS: Pulmonary Parenchyma: There is evidence of reticular shadowing in the left lower zone with some soft tissue haze. No evidence of consolidation, collapse, or focal opacities. No pulmonary nodules are identified. Left costophrenic angle is blunted signifying mil pleural thickening. Right costophrenic angle is clear. Heart and Mediastinum: Heart size and shape are normal. No mediastinal widening or masses. No hilar or mediastinal lymphadenopathy. Bony Thorax: Bony thorax appears intact without fractures or deformities. Right total shoulder reverse arthroplasty. Soft Tissues: Soft tissues overlying the chest wall are unremarkable. IMPRESSION: 1. Left lower zone reticular shadowing with some soft tissue haze showing interval increase on comparison. 2. No acute consolidation or collapse is seen on either side. 3. Right total shoulder reverse arthroplasty. 4. CT chest is advised for further characterization if clinically needed. Electronically signed by Zonia Maradiaga 07-09-2024 7:58 PM Femur X-Ray 07/09/24 18:16 EXAM: XR femur LT 2V routine CLINICAL HISTORY: FALL HKS/KFK. TECHNIQUE: X-ray images of the left femur were obtained in anteroposterior (AP) and lateral projections. COMPARISON: No prior studies are available for comparison. FINDINGS: Bone Structure: The femoral shaft, neck, and proximal and distal regions are normal in structure and alignment. No evidence of acute fractures or dislocations. Joint and Articular Surfaces: Mild osteoarthritic changes of the left hip joint evident by narrow joint space and subchondral sclerosis. Soft Tissues: Periarticular and surrounding soft tissues appear normal. No signs of soft tissue swelling, calcifications, or masses. IMPRESSION: 1. No evidence of acute fractures, or dislocations. 2. Mild osteoarthritic changes of the left hip joint. Disclaimer: A subtle bone abnormality or fracture may not be readily apparent on X-rays. Clinical correlation and further imaging, including CT, MRI, or follow-up X-rays, are advised if clinically warranted. Electronically signed by Zonia Maradiaga 07-09-2024 8:[address] 07/09/24 18:16 Exam(s): CT HEAD Without Contrast EXAM: CT Head Without Intravenous Contrast CLINICAL HISTORY: Reason for exam: fall. TECHNIQUE: Axial computed tomography images of the head/brain without intravenous contrast. CTDI is 38.64 mGy and DLP is 702.46 mGy-cm. Automated exposure control was utilized for the study. A dose lowering technique was utilized adhering to the principles of ALARA. COMPARISON: Head CT 09/22/2022 FINDINGS: Brain: No intracranial hemorrhage. Global parenchymal atrophy and chronic microvascular ischemic changes. Ventricles: Dilated ventricles slightly out of proportion to the degree of volume loss potentially representing NPH. Bones/joints: Unremarkable. No fracture. Soft tissues: Scalp laceration. Sinuses: No acute sinusitis. Mastoid air cells: Unremarkable as visualized. IMPRESSION: 1. No intracranial hemorrhage. 2. Global parenchymal atrophy and chronic microvascular ischemic changes. 3. Scalp laceration. 4. Dilated ventricles slightly out of proportion to the degree of volume loss potentially representing NPH. Electronically signed by: Lalit Swift MD 07/09/24 21:09 PM Pelvis X-Ray 07/09/24 18:16 EXAM: XR pelvis 1-2V routine CLINICAL HISTORY: FALL. TECHNIQUE: X-ray images of the pelvis were obtained in anteroposterior (AP) projection. COMPARISON: CR dated 08/21/2020. FINDINGS: Bone Structure: Pelvic bones, including the iliac wings, ischium, pubis, and sacrum, are normal and intact. No evidence of fractures, dislocations, or significant osseous lesions. Hip Joints: Internal fixation of the right femoral neck using a dynamic hip screw. Hip joints are normal with preserved joint spaces. No evidence of hip dislocation, subluxation, or significant degenerative changes. Acetabulum: Acetabular structures appear normal and intact. No signs of acetabular fracture or dysplasia. Symphysis Pubis: The symphysis pubis is normal and intact. No evidence of separation or widening. Sacroiliac Joints: Bilateral degenerative sacroiliitis. Soft Tissues: Visualized soft tissues are normal and unremarkable. No soft tissue swelling, calcifications, or masses. IMPRESSION: 1. Internal fixation of the right femoral neck using a dynamic hip screw. 2. Bilateral degenerative sacroiliitis. 3. Lumbar spondylotic changes. Disclaimer: A subtle bone abnormality or fracture may not be readily apparent on X-rays, thus clinical correlation and further imaging including follow-up CT, MRI, or follow-up X-rays are advised as needed. Electronically signed by Zonia Maradiaga 07-09-2024 8:[address] 07/09/24 20:38 Exam(s): CT LEFT HIP Without Contrast EXAM: CT Left Lower Extremity Without Intravenous Contrast, Hip CLINICAL HISTORY: Reason for exam: fall, abnormal x ray. TECHNIQUE: Axial computed tomography images of the left hip without intravenous contrast. CTDI is 25.05 mGy and DLP is 432.62 mGy-cm. Automated exposure control was utilized for the study. A dose lowering technique was utilized adhering to the principles of ALARA. COMPARISON: No relevant prior studies available. FINDINGS: Bones/joints: Acute intertrochanteric fracture on the left. Moderate degenerative changes of the left hip. No acetabular fracture. No pubic ramus fracture. No dislocation. Soft tissues: Unremarkable. IMPRESSION: Acute intertrochanteric fracture on the left. Electronically signed by: Lalit Swift MD 07/09/24 21:59 PM Venous Doppler Study 07/10/24 00:38 EXAM: US venous doppler LE BI CLINICAL HISTORY: Leg pain and swelling. TECHNIQUE: Ultrasound examination of bilateral lower extremity veins was performed in real-time and duplex. One or more of the following were performed- spectral analysis, resistive index, waveform analysis, and pulsed Doppler. COMPARISON: None. FINDINGS: Normal phasic, non-pulsatile, and spontaneous flow is noted in bilateral GSV, common femoral, superficial femoral, popliteal, posterior tibial, peroneal and anterior tibial veins. Visualized veins of both lower extremities demonstrate normal compressibility. No sonographic evidence of acute deep vein thrombosis (DVT) is detected in the visualized veins of both lower extremities. Compression and Augmentation: All evaluated veins compress fully with applied transducer pressure. Augmentation of venous flow is noted with distal compression. Additional Findings: No evidence of intraluminal thrombus. IMPRESSION: No sonographic evidence of acute DVT was detected in bilateral GSV, common femoral, superficial femoral, popliteal, posterior tibial, peroneal and anterior tibial veins at the time of examination. Disclaimer: DVT could be missed early in the disease when clot burden is minimal. For patients with moderate and high pretest probability of DVT and negative ultrasound, the [employer] clinical guidelines recommend testing with a D-dimer assay or repeat ultrasound in 5-7 days. If symptoms worsen, the Society of radiologists in ultrasound recommends repeating ultrasound even earlier. Electronically signed by Zonia Maradiaga 07-10-2024 06:58 AM (1) Closed intertrochanteric fracture of left hip Encounter type: initial encounter Fracture alignment: displaced Qualified Code(s): S72.142A - Displaced intertrochanteric fracture of left femur, initial encounter for closed fracture
[2024-07-10] MEDS: CHOLECALCIFEROL 25 MCG (1000 UNITS) TAB PO SCH (08:32)
[2024-07-10] MEDS: cephALEXin 500 MG CAP PO SCH (08:32)
[2024-07-10] MEDS: MECLIZINE 12.5 MG TAB PO SCH (08:32)
[2024-07-10] MEDS: ESCITALOPRAM OXALATE 10 MG TAB PO SCH (08:33)
--- NOTE | 2024-07-10 08:42 | Anesthesiology Consultation ---
Date of Service July 10, 2024 Assessment & Plan (1) Encounter for pre-operative examination: Chart Review Chart Review: Acceptable Risk for Surgery and Patient NOT seen in Pre Admission Testing Consults Requested none History Surgery Operation Date: 07/10/24 08:20 Proposed Procedures p Left Troch Nail - Justin Figueroa Dominguez MD Height/Weight Height: 5 ft 3 in Weight: 87.9 kg Allergies Allergy/AdvReac Type Severity Reaction Status Date / Time amoxicillin Allergy Intermediate Rash Verified 09/22/22 19:46 latex Allergy Intermediate Rash Verified 09/22/22 19:46 Medications Home Medications Medication Instructions Recorded Confirmed Last Taken cholecalciferol (vitamin D3) 50 50 mcg PO DAILY 07/09/24 07/09/24 Unknown mcg (2,000 unit) tablet (Vitamin D3) escitalopram oxalate 10 mg tablet 10 mg PO DAILY 07/09/24 07/09/24 Unknown meclizine 12.5 mg PO TID 07/09/24 07/09/24 Unknown Active Medications Generic Name Dose Route Start Last Admin Trade Name Freq PRN Reason Stop Dose Admin Acetaminophen 650 mg 07/10/24 00:38 07/10/24 01:46 Acetaminophen 325 Mg Tab PO 08/09/24 00:37 650 mg Q4H PRN Administration Pain or Fever Cephalexin HCl 500 mg 07/10/24 09:00 07/10/24 08:32 Cephalexin 500 Mg Cap PO 07/17/24 08:59 500 mg BID DEMETRA Administration Protocol Escitalopram Oxalate 10 mg 07/10/24 09:00 07/10/24 08:33 Escitalopram Oxalate 10 Mg Tab PO 08/09/24 08:59 10 mg DAILY DEMETRA Administration Sodium Chloride 1,000 mls @ 80 mls/hr 07/10/24 00:38 07/10/24 01:45 Nss IV 07/11/24 00:37 80 mls/hr .[id number] DEMETRA Administration Meclizine HCl 12.5 mg 07/10/24 09:00 07/10/24 08:32 Meclizine 12.5 Mg Tab PO 08/09/24 08:59 12.5 mg TID DEMETRA Administration Vitamin D 50 mcg 07/10/24 09:00 07/10/24 08:32 Cholecalciferol 25 Mcg (1000 Units) Tab PO 08/09/24 08:59 50 mcg DAILY DEMETRA Administration Past Medical History Medical History Intertrochanteric fracture of right hip Past Family History Family History Mother , 92 Old age Father Sudden Sister Lymphoma Leukemia Past Surgical History Surgical History History of mastectomy Right - 2013 Social History Smoking Status: Never smoker Do You Dip or Chew Tobacco: No Hx Alcohol Use: No Hx Substance Use: No substance use type: does not use Physical Exam Vital Signs Last Vital Signs Temp 98.4 F 07/10/24 07:23 Pulse 61 07/10/24 07:23 Resp 18 07/10/24 07:23 BP 144/72 H 07/10/24 07:23 Pulse Ox 95 07/10/24 07:23 O2 Del Method Room Air 07/10/24 07:23 O2 Flow Rate 2 07/09/24 22:00 Testing Laboratory Results 07/10/24 06:27 07/10/24 06:27 PT 11.5 Seconds (9.0-12.0) 07/09/24 18:49 INR 1.1 (0.9-1.1) 07/09/24 18:49 APTT 26 Seconds (21-31) 07/09/24 18:49 Electrocardiogram Date: 07/09/24 Findings: + NSR @ and + RBBB left anterior fascicular block
--- NOTE | 2024-07-10 10:17 | CT Scan Report ---
CT chest diagnostic wo con CLINICAL HISTORY: Left lower zone reticular shadowing on cxr TECHNIQUE: Multidetector row helical CT of the chest was performed. Coronal and sagittal reformations were obtained. Automated dose lowering techniques and/or adjustment according to patient size were u tilized for this exam. CT DOSE: 654.08 mGy.cm Comparison: Comparison is made to chest radiograph 07/09/2024 FINDINGS: Lungs and pleura: Peripheral interstitial thickening and atelectasis are seen. Heart and pericardium: Cardiomegaly is seen with biatrial enlargement. Vessels: Severe atherosclerotic changes in the aorta and coronary arteries. Pulmonary trunk measures 33 mm. Mediastinum and symone: Unremarkable. Chest wall and lower neck: Unremarkable. Abdomen: Unremarkable. Bones: Right shoulder arthroplasty is seen. Degenerative changes are seen lumbar spine. IMPRESSION: No acute abnormality to correspond to reticular shadowing in the left lower lobe, this likely represe nted atelectasis. ACT 112: Negative or not required by law. Electronically signed by: Onel Rae M.D. 07/10/2024 10:15 AM
--- NOTE | 2024-07-10 11:11 | Hospitalist Progress Note ---
Date of Service July 10, 2024 Assessment & Plan (1) Closed intertrochanteric fracture of left hip: Plan: Ms. Patel is an 84-year-old female past med history significant for hypertension, not on medication vitamin D deficiency, history of urinary retention history of anxiety history of breast cancer who lives at a personal correction and ambulates with a walker came with a fall and admitted for management of left hip fracture. Preoperative Revised Cardiac Risk Index (RCRI) score of 1 Patient is older than 65 and with atherosclerotic disease on imaging Troponin negative x 3 BNP 126 #Closed intertrochanteric fracture of left hip s/p left trochanteric nail #Mechanical fall s/p left nail with Dr. Dominguez POD 0 Echo with EF 65-70%, GIDD CT with cardiomegaly and atherosclerotic changes PT/OT as able Trend CBC for post op anemia DVT ppx at discretion of ortho #Abnormal CXR CXR with LLL --ct revealed no abnormality, likely haziness atelectasis IS #Scalp laceration status post sunil CT head no intracranial hemorrhage dilated ventricles possible NPH; chronic finding Continue keflex will need sunil removed in 7-10 days #Hypertension labetolol prn consider addition of antihypertensive with caution given recent procedure and proclivity for falls/dizziness #Dizziness On meclizine #History of breast cancer S/p mastectomy and chemo DVT prophylaxis SCDs on right leg Further anticoagulation as per orthopedics Disposition Med/daily Full code. Admission and Anticipated Discharge Date Admission Date: July 09, 2024 Subjective admitted in evening states that she was in normal states of health prior to fall Denies chest pain, sob, or other acute concerns Pain controlled at time of exam Physical Exam Constitutional: WD/WN, vitals as above Respiratory: normal respiratory effort, lungs clear to auscultation Cardiovascular: RRR, no murmur, no edema Gastrointestinal (Abdomen): normal bowel sounds, soft, nontender, no hepatosp lenomegaly Results & Data Results & Data Vital Signs (Past 12 Hours) Vital Signs Temp Pulse Pulse Pulse Resp BP BP 07/10/24 10:44 37.0 C 88 18 146/73 H 07/10/24 07:23 36.9 C 61 18 144/72 H 07/10/24 05:42 63 07/10/24 03:53 36.7 C 67 18 161/77 H 07/10/24 01:39 203/81 H 12/24/24 00:21 36.7 C 81 14 203/81 H 07/10/24 00:10 79 07/09/24 23:31 66 18 174/90 H Pulse Ox O2 Del Method 07/10/24 10:44 91 Room Air 07/10/24 07:23 95 Room Air 07/10/24 05:42 07/10/24 03:53 94 Room Air 07/10/24 01:39 07/10/24 00:21 94 Room Air 07/10/24 00:10 07/09/24 23:31 97 Laboratory Results Short CBC 07/09/24 07/10/24 Range/Units 18:49 06:27 WBC 10.61 9.50 (4.8-10.8) K/ul Hgb 14.8 12.4 (12.0-16.0) g/dl Hct 44.9 37.0 (37.0-47.0) % Plt Count 318 287 (130-400) K/uL [facility] 07/09/24 07/10/24 18:49 06:27 Sodium 136 136 Potassium 3.9 4.1 Chloride 100 103 Carbon Dioxide 26 25 BUN 18 16 Creatinine 0.73 0.53 L Glucose 150 H 143 H Calcium 9.5 8.7 Liver Function 07/09/24 Range/Units 18:49 Total Bilirubin 0.5 (0.2-1.0) mg/dl AST 41 H (13-39) U/L ALT 36 (7-52) U/L Alkaline Phosphatase 97 (34-104) U/L Albumin 4.5 (3.4-5.0) gm/dl Medications Administered Home Medications Medication Instructions Recorded Confirmed Last Taken cholecalciferol (vitamin D3) 50 50 mcg PO DAILY 07/09/24 07/09/24 Unknown mcg (2,000 unit) tablet (Vitamin D3) escitalopram oxalate 10 mg tablet 10 mg PO DAILY 07/09/24 07/09/24 Unknown meclizine 12.5 mg PO TID 07/09/24 07/09/24 Unknown Active Medications Generic Name Dose Route Start Last Admin Trade Name Freq PRN Reason Stop Dose Admin Acetaminophen 650 mg 07/10/24 00:38 07/10/24 01:46 Acetaminophen 325 Mg Tab PO 08/09/24 00:37 650 mg Q4H PRN Administration Pain or Fever Escitalopram Oxalate 10 mg 07/10/24 09:00 07/10/24 08:33 Escitalopram Oxalate 10 Mg Tab PO 08/09/24 08:59 10 mg DAILY DEMETRA Administration Sodium Chloride 1,000 mls @ 80 mls/hr 07/10/24 00:38 07/10/24 16:17 Nss IV 07/11/24 00:37 80 mls/hr .[id number] DEMETRA Administration Lactated Ringer's 1,000 mls @ 15 mls/hr 07/10/24 11:15 07/10/24 12:32 Lr IV 07/11/24 11:14 Infused .Q24H DEMETRA Infusion Meclizine HCl 12.5 mg 07/10/24 09:00 07/10/24 16:13 Meclizine 12.5 Mg Tab PO 08/09/24 08:59 Not Given TID DEMETRA Vitamin D 50 mcg 07/10/24 09:00 07/10/24 08:32 Cholecalciferol 25 Mcg (1000 Units) Tab PO 08/09/24 08:59 50 mcg DAILY DEMETRA Administration (1) Closed intertrochanteric fracture of left hip Encounter type: initial encounter Fracture alignment: displaced Qualified Code(s): S72.142A - Displaced intertrochanteric fracture of left femur, initial encounter for closed fracture
[2024-07-10] MEDS ORDERED: Nursing to Pharmacy Communication SCH (11:15)
[2024-07-10] MEDS ORDERED: fentaNYL citrate PF 100 MCG/2 ML VIAL ONE (11:49)
[2024-07-10] MEDS ORDERED: MIDAZOLAM HCL 1 MG/ML 2ML VIAL ONE (11:49)
[2024-07-10] MEDS ORDERED: LIDOCAINE 2% 2 ML VIAL/AMP(20MG/ML) INFIL ONE (11:51)
[2024-07-10] MEDS ORDERED: PROPOFOL IV EMULSION 10 MG/ML 20 ML VIAL IV ONE (11:52)
[2024-07-10] MEDS ORDERED: ROCURONIUM BROMIDE 10 MG/ML 5 ML VIAL IV ONE (11:52)
[2024-07-10] MEDS ORDERED: DEXAMETHASONE SOD INJ 4 MG/ML VIAL ONE (11:54)
[2024-07-10] MEDS ORDERED: ONDANSETRON INJ 2 MG/ML 2 ML VIAL ONE (11:55)
[2024-07-10] MEDS: LR 15ML/HR IV SCH (11:55)
[2024-07-10] MEDS ORDERED: fentaNYL citrate PF 100 MCG/2 ML VIAL IV PRN (11:58)
[2024-07-10] MEDS ORDERED: ATROPINE SULFATE 0.1 MG/ML 10ML SYR IV PRN (11:58)
[2024-07-10] MEDS ORDERED: ONDANSETRON INJ 2 MG/ML 2 ML VIAL IV PRN (11:58)
[2024-07-10] MEDS ORDERED: HYDROmorphone INJ 1 MG/ML SYRINGE IV PRN (11:58)
[2024-07-10] MEDS ORDERED: ePHEDrine sulfate 50 MG/ML AMP IV PRN (11:58)
[2024-07-10] MEDS ORDERED: ePHEDrine sulfate 50 MG/5 ML SYR ONE (13:26)
[2024-07-10] MEDS ORDERED: SUGAMMADEX SODIUM 200 MG/2 ML VIAL IV ONE (14:26)
[2024-07-10] MEDS: TRANEXAMIC ACID / 0.7% NACL 1,000 MG/100 ML BAG IV ONE ×2 (14:27→20:05)
[2024-07-10] MEDS: LIDOCAINE 1% LOCAL 20 ML VIAL ONE (14:28)
[2024-07-10] MEDS: BUPIVACAINE/EPINEPHRINE 0.5% MPF 1:200,000 30 ML VIAL ONE (14:28)
--- NOTE | 2024-07-10 14:41 | Post Operative Brief Note ---
Immediate Post Op Note Date of Surgery July 10, 2024 Pre & Post Diagnosis Operation Date: 07/10/24 08:20 Pre-Op Diagnosis: LEFT HIP FRACTURE Post-Op Diagnosis: LEFT HIP FRACTURE I identified the patient and participated in the time-out.: Yes Procedure Operation Date: 07/10/24 08:20 Actual Procedures p Left Troch Nail(Left) - Justin Dominguez MD Surgeon Justin Dominguez MD Medical Editor Minh Luther PA-C (No fellow avail) Estimated Blood Loss 50 Findings Consistent with Post-Op Diagnosis Fluids 300 cc Drains Fletcher Catheter Anesthesia Type General Complications none
--- NOTE | 2024-07-10 14:42 | Operative Report ---
Post Operative Report Pre & Post Diagnosis Operation Date: 07/10/24 08:20 Pre-Op Diagnosis: LEFT HIP FRACTURE Post-Op Diagnosis: LEFT HIP FRACTURE I identified the patient and participated in the time-out.: Yes Procedure Operation Date: 07/10/24 08:20 Actual Procedures p Left Troch Nail(Left) - Justin Dominguez MD Surgeon Justin Dominguez MD Photographic Engineer Minh Luther PA-C (No fellow avail) Estimated Blood Loss 50 Findings See Below Displace left inter-trochanteric hip fracture Fluids 300 cc Specimens n/a Drains Fletcher Anesthesia Type General Complications none Indications The patient is a 84 year old female who sustained a left hip fracture from a ground level fall. The patients treatment options of conservative versus surgical intervention were discussed. Since the patient was an ambulatory prior to the injury and to avoid the risks of bed sores, pulmonary complications, and to give the best chance for ambulation, I recommended surgery. The patient understands the risks of surgery, which include but are not limited to: bleeding, infection, re-operation, damage to nerves and arteries, continued pain, failure of the hardware, mal-union, non-union, DVT, and . In addition the patient is aware of the 20-30% morbidity associated with hip fracture for up to 1 year following a hip fracture. The patient understands all of these instructions and explanations, all of their questions have been satisfactorily addressed. The patient has elected to proceed with surgery and the informed consent was signed. Description of Procedure Minh Luther PA-C is assisting with positioning, retraction, and closure due to fellow not available. IMPLANTS: 1) 12 mm short TrocH nail (Synthes). 2) 12 x 95 mm helical screw. 3) 5 x 38 mm locking screw. Procedure: The patient was taken to the Operating Room and placed in the supine position on the fracture table after spinal anesthesia was administered. A multidisciplinary time-out was performed identifying my initials on the left lower limb as the correct and operative limb. Prior to the incision being made, 2 grams of intravenous Ancef were given. Fluoroscopy was brought in to ensure adequate x-rays images could be obtained. A reduction was performed with tracti on, adduction, and internal rotation of the operative limb. Once this was confirmed with Fluro, the left lower extremity was prepped in the standard fashion. The trochanter was marked as was the planned incision and trajectory of the helical screw. The incisions were injected with a 50:50 mixture of 1% Lidocaine plain and 0.5% Bupivacaine with epinephrine for a total of 10cc. The planned incision proximal to the greater trochanter was made and carried down through the Tensor Fascia Yudy to expose the tip of the greater trochanter and the starting position. A starting guide wire was placed with the aid of the awl and the starting reamer was used to create the entry hole for the short implant. A size 12 was selected. The implant was then inserted without difficulty. Small second incision was made for placement of the helical blade and distal locking screw. These were placed through the aiming guide in the standard fashion. The Helical blade was locked in place. The traction was released after placement of the Helical blade. Final x-rays were obtained showing TAD of less than 25mm. The wounds were copiously irrigated. The Tensor Fascia Yudy was closed with 0 Vicryl. The deep fat had a couple of 2-0 Vicryl placed and the subcutaneous tissue was closed with 3-0 Vicryl. The skin was closed with sunil. The incisions were covered with Xeroform, 4x4s, ABD, and foam tape. The patient was transfer to her hospital bed and taken to the PACU in stable condition. The sponge and needle counts were correct. Post-op Instructions: The patient was admitted to Telemetry. The patient will be WBAT with a walker. The patient will be seen by PT/OT. Labs will be checked in the am. DVT prophylaxis will be with TEDs, mechanical devices and ASA will be started. I attest to the content of the Intraoperative Record and any orders documented therein. Any exceptions are noted below.
--- NOTE | 2024-07-10 14:54 | Fluoroscopy Report ---
FL femur LT 2V CLINICAL HISTORY: Left trochnail COMPARISON STUDY: Left femur radiographs and CT of the left hip July 09, 2024. FLUOROSCOPY TIME: 1 minute and 43 seconds. Ka,r: 37.02 mGy FLUOROSCOPIC IMAGES: 4 FINDINGS: Fluoroscopy was provided during internal fixation of the intertrochanteric fracture of the left femur trochanteric nail. Fracture alignment has improved. There are no unexpected radiopaque for eign bodies. IMPRESSION: Fluoroscopy provided during internal fixation of the intertrochanteric fracture of the l eft femur. ACT 112: Negative or not required by law. Electronically signed by: Erik Ahmadi M.D. 07/10/2024 2:53 PM
--- NOTE | 2024-07-10 15:37 | Anesthesiology Progress Note ---
Date of Service July 10, 2024 Anesthesia Post Procedure Vital Signs Vital Signs: Temp Pulse Pulse Pulse Resp BP BP 07/10/24 15:25 68 19 185/87 H 07/10/24 15:15 73 21 174/96 H 07/10/24 15:05 74 16 189/83 H 07/10/24 14:56 36.8 C 76 16 198/78 H 07/10/24 12:03 37.3 C 67 20 180/79 H 07/10/24 10:44 37.0 C 88 18 146/73 H 07/10/24 07:23 36.9 C 61 18 144/72 H 07/10/24 05:42 63 07/10/24 03:53 36.7 C 67 18 161/77 H 07/10/24 01:39 203/81 H 07/10/24 00:21 36.7 C 81 14 203/81 H 07/10/24 00:10 79 07/09/24 23:31 66 18 174/90 H 07/09/24 22:00 64 21 186/90 H 07/09/24 21:27 73 07/09/24 21:00 71 18 188/90 H 07/09/24 19:16 66 19 196/91 H 07/09/24 18:40 61 24 07/09/24 17:51 62 07/09/24 17:32 36.8 C 60 17 197/89 H 07/09/24 17:32 36.8 C 57 L 20 197/89 H Pulse Ox O2 Del Method O2 Flow Rate 07/10/24 15:25 96 Nasal Cannula 3 07/10/24 15:15 95 Oxymask 5 07/10/24 15:05 98 Oxymask 5 07/10/24 14:56 90 Oxymask 5 07/10/24 12:03 93 Room Air 07/10/24 10:44 91 Room Air 07/10/24 07:23 95 Room Air 07/10/24 05:42 07/10/24 03:53 94 Room Air 07/10/24 01:39 07/10/24 00:21 94 Room Air 07/10/24 00:10 07/09/24 23:31 97 07/09/24 22:00 91 Nasal Cannula 2 07/09/24 21:27 07/09/24 21:00 97 Nasal Cannula 2 07/09/24 19:16 97 Nasal Cannula 2 07/09/24 18:40 96 Room Air 07/09/24 17:51 07/09/24 17:32 94 Room Air 07/09/24 17:32 94 Room Air Pain Intensity Left Upper Leg: Pain Intensity: 3 Transfer of Care Handoff Completed per policy Notes Mental Status: alert / awake / arousable and participated in evaluation Patient Amnestic to Procedure: Yes Nausea / Vomiting: adequately controlled Pain: adequately controlled Airway Patency, RR, SpO2: stable & adequate BP & HR: stable & adequate Hydration State: stable & adequate Anesthetic Complications: no major complications apparent and Pt Satisfied with anesthetic care
--- NOTE | 2024-07-10 17:50 | Electrocardiogram Report ---
Test Reason : Blood Pressure : */* mmHG Vent. Rate : 62 BPM Atrial Rate : 62 BPM P-R Int : 192 ms QRS Dur : 98 ms QT Int : 472 ms P-R-T Axes : 87 -77 94 degrees QTcB Int : 479 ms Normal sinus rhythm Possible Left atrial enlargement Incomplete right bundle branch block Left anterior fascicular block Poor R wave progression, consider anterior TX vs. lead placement vs. LVH Abnormal ECG When compared with ECG of 22-Sep-2022 19:36, T wave amplitude has increased in Inferior leads T wave inversion less evident in Lateral leads Confirmed by Rodriguez Hinds ([id number]) on 07/10/2024 5:49:40 PM Referred By: REFERRED SELF Confirmed By: Rodriguez Hinds
[2024-07-10] MEDS: ceFAZolin 2000MG 2,000 MG/15 ML SYR IV ONE (20:06)
[2024-07-11 06:31] LABS: Basophils # (auto) 0.01 K/uL (0.00-0.20); Basophils % (auto) 0.1 %; Hematocrit (blood only) 33.2 % (37.0-47.0); Hemoglobin 11.1 g/dl (12.0-16.0); Immature Granulocytes # (auto) 0.04 K/uL (0.01-0.20); Immature Granulocytes % (auto) 0.4 %; Lymphocytes # (auto) 1.17 K/uL (1.20-3.40); Lymphocytes % (auto) 10.5 %; Mean Corpuscular Hemoglobin 29.4 pg (25.0-34.0); Mean Corpuscular Hgb Conc 33.4 g/dL (32.0-36.0); Mean Corpuscular Volume 88.1 fL (80.0-100.0); Mean Platelet Volume 9.6 fL (9.4-12.4); Monocytes # (auto) 1.53 K/uL (0.11-0.59); Monocytes % (auto) 13.7 %; Neutrophils # (auto) 8.44 K/uL (1.40-6.50); Neutrophils % (auto) 75.3 %; Platelet Count 257 K/uL (130-400); RDW Coefficient of Variation 13.2 % (11.5-14.5); RDW Standard Deviation 42.5 fL (36.4-46.3); Red Blood Count 3.77 M/uL (4.20-5.40); White Blood Count 11.19 K/ul (4.8-10.8)
[2024-07-11 06:53] LABS: Magnesium 1.8 mg/dl (1.7-2.4); Phosphorus 2.3 mg/dl (2.5-4.9)
[2024-07-11] MEDS: carvediloL 3.125 MG TAB PO SCH (07:36)
--- NOTE | 2024-07-11 08:22 | Orthopedic Progress Note ---
Date of Service July 11, 2024 Assessment & Plan (1) Closed intertrochanteric fracture of left hip: Plan: POD #1 s/p ORIF L hip fracture, doing as well as expected. Resume diet. WBAT with walker. OOB to chair. Continue pain control. DVT prophylaxis: TEDs 3 weeks, foot pumps while in hospital, ASA 81 mg BID for 4 weeks. PT/OT. D/C planning. Continue care per primary service. Dressing to be changed POD 2-3 to Silverlon type dressing. Present on Admission?: Yes Admission and Anticipated Discharge Date Admission Date: July 09, 2024 Subjective Left hip pain Physical Exam Physical Exam: LLE: Sensation to light touch intact distally. BCR < 2 sec. Motor: gastroc soleus, Tib ant, EHL intact. Calf soft and non-tender. Incision clean, dry, intact. Results & Data Vital Signs (Past 12 Hours) Vital Signs Temp Pulse Pulse Resp BP Pulse Ox O2 Del Method 07/11/24 07:27 36.7 C 68 18 125/68 93 Room Air 07/11/24 07:13 66 07/11/24 03:30 36.7 C 73 20 153/69 H 94 Room Air 07/10/24 23:30 36.8 C 87 18 148/77 H 91 Room Air 07/10/24 21:48 77 Laboratory Results Laboratory Results WBC 11.19 K/ul (4.8-10.8) H 07/11/24 06:17 RBC 3.77 M/uL (4.20-5.40) L 07/11/24 06:17 Hgb 11.1 g/dl (12.0-16.0) L 07/11/24 06:17 Hct 33.2 % (37.0-47.0) L 07/11/24 06:17 MCV 88.1 fL (80.0-100.0) 07/11/24 06:17 MCH 29.4 pg (25.0-34.0) 07/11/24 06:17 MCHC 33.4 g/dL (32.0-36.0) 07/11/24 06:17 RDW Std Deviation 42.5 fL (36.4-46.3) 07/11/24 06:17 RDW Coeff of Kelsey 13.2 % (11.5-14.5) 07/11/24 06:17 Plt Count 257 K/uL (130-400) 07/11/24 06:17 MPV 9.6 fL (9.4-12.4) 07/11/24 06:17 Immature Gran % (Auto) 0.4 % 07/11/24 06:17 Neut % (Auto) 75.3 % 07/11/24 06:17 Lymph % (Auto) 10.5 % 07/11/24 06:17 [place] % (Auto) 13.7 % 07/11/24 06:17 Eos % (Auto) 0.0 % 07/11/24 06:17 Baso % (Auto) 0.1 % 07/11/24 06:17 Neut # (Auto) 8.44 K/uL (1.40-6.50) H 07/11/24 06:17 Lymph # (Auto) 1.17 K/uL (1.20-3.40) L 07/11/24 06:17 [place] # (Auto) 1.53 K/uL (0.11-0.59) H 07/11/24 06:17 Eos # (Auto) 0.00 K/uL (0.00-0.50) 07/11/24 06:17 Baso # (Auto) 0.01 K/uL (0.00-0.20) 07/11/24 06:17 Immature Gran # (Auto) 0.04 K/uL (0.01-0.20) 07/11/24 06:17 PT 11.5 Seconds (9.0-12.0) 07/09/24 18:49 INR 1.1 (0.9-1.1) 07/09/24 18:49 APTT 26 Seconds (21-31) 07/09/24 18:49 PTT Ratio 1.0 07/09/24 18:49 Sodium 136 mmol/L (136-145) 07/10/24 06:27 Potassium 4.1 mmol/L (3.5-5.1) 07/10/24 06:27 Chloride 103 mmol/L (98-107) 07/10/24 06:27 Carbon Dioxide 25 mmol/L (21-32) 07/10/24 06:27 Anion Gap 8 (3-11) 07/10/24 06:27 BUN 16 mg/dl (6-23) 07/10/24 06:27 Creatinine 0.53 mg/dl (0.6-1.2) L 07/10/24 06:27 Est Cr Clr Drug Dosing 83.1 ml/min 07/10/24 06:27 eGFR 91.14 07/10/24 06:27 BUN/Creatinine Ratio 30.2 (10-20) H 07/10/24 06:27 Glucose 143 mg/dl (70-99(Fasting)) H 07/10/24 06:27 Calcium 8.7 mg/dl (8.6-10.3) 07/10/24 06:27 Phosphorus 2.3 mg/dl (2.5-4.9) L 07/11/24 06:17 Magnesium 1.8 mg/dl (1.7-2.4) 07/11/24 06:17 Total Bilirubin 0.5 mg/dl (0.2-1.0) 07/09/24 18:49 AST 41 U/L (13-39) H 07/09/24 18:49 ALT 36 U/L (7-52) 07/09/24 18:49 Alkaline Phosphatase 97 U/L (34-104) 07/09/24 18:49 Troponin I High Sens 12.0 pg/ml (0-14) 07/10/24 11:39 B-Natriuretic Peptide 126 pg/ml (0-100) H 07/10/24 11:06 Total Protein 8.1 gm/dl (6.0-8.3) 07/09/24 18:49 Albumin 4.5 gm/dl (3.4-5.0) 07/09/24 18:49 Globulin 3.6 gm/dl (2.5-4.0) 07/09/24 18:49 Albumin/Globulin Ratio 1.3 (0.9-2) 07/09/24 18:49 Lipase 29 U/L (11-82) 07/09/24 18:[address] 07/09/24 18:16 Exam(s): CT C SPINE EXAM: CT Cervical Spine Without Intravenous Contrast CLINICAL HISTORY: Reason for exam: fall. TECHNIQUE: Axial computed tomography images of the cervical spine without intravenous contrast. CTDI is 24.26 mGy and DLP is 506.76 mGy-cm. Automated exposure control was utilized for the study. A dose lowering technique was utilized adhering to the principles of ALARA. COMPARISON: No relevant prior studies available. FINDINGS: Vertebrae: No acute fracture. No malalignment. Soft tissues: Unremarkable. Lung apices: Scarring at the right lung apex. IMPRESSION: No acute findings in the cervical spine. Electronically signed by: Lalit Swift MD 07/09/24 21:14 PM Chest X-Ray 07/09/24 18:16 EXAM: XR chest 1V portable CLINICAL HISTORY: FALL HKS/KFK TECHNIQUE: An X-ray image of the chest is obtained in AP projection. COMPARISON: 09/16/2022 CR chest FINDINGS: Pulmonary Parenchyma: There is evidence of reticular shadowing in the left lower zone with some soft tissue haze. No evidence of consolidation, collapse, or focal opacities. No pulmonary nodules are identified. Left costophrenic angle is blunted signifying mil pleural thickening. Right costophrenic angle is clear. Heart and Mediastinum: Heart size and shape are normal. No mediastinal widening or masses. No hilar or mediastinal lymphadenopathy. Bony Thorax: Bony thorax appears intact without fractures or deformities. Right total shoulder reverse arthroplasty. Soft Tissues: Soft tissues overlying the chest wall are unremarkable. IMPRESSION: 1. Left lower zone reticular shadowing with some soft tissue haze showing interval increase on comparison. 2. No acute consolidation or collapse is seen on either side. 3. Right total shoulder reverse arthroplasty. 4. CT chest is advised for further characterization if clinically needed. Electronically signed by Zonia Maradiaga 07-09-2024 7:[address] 07/09/24 18:16 Exam(s): CT HEAD Without Contrast EXAM: CT Head Without Intravenous Contrast CLINICAL HISTORY: Reason for exam: fall. TECHNIQUE: Axial computed tomography images of the head/brain without intravenous contrast. CTDI is 38.64 mGy and DLP is 702.46 mGy-cm. Automated exposure control was utilized for the study. A dose lowering technique was utilized adhering to the principles of ALARA. COMPARISON: Head CT 09/22/2022 FINDINGS: Brain: No intracranial hemorrhage. Global parenchymal atrophy and chronic microvascular ischemic changes. Ventricles: Dilated ventricles slightly out of proportion to the degree of volume loss potentially representing NPH. Bones/joints: Unremarkable. No fracture. Soft tissues: Scalp laceration. Sinuses: No acute sinusitis. Mastoid air cells: Unremarkable as visualized. IMPRESSION: 1. No intracranial hemorrhage. 2. Global parenchymal atrophy and chronic microvascular ischemic changes. 3. Scalp laceration. 4. Dilated ventricles slightly out of proportion to the degree of volume loss potentially representing NPH. Electronically signed by: Lalit Swift MD 07/09/24 21:09 PM Pelvis X-Ray 07/09/24 18:16 EXAM: XR pelvis 1-2V routine CLINICAL HISTORY: FALL. TECHNIQUE: X-ray images of the pelvis were obtained in anteroposterior (AP) projection. COMPARISON: CR dated 08/21/2020. FINDINGS: Bone Structure: Pelvic bones, including the iliac wings, ischium, pubis, and sacrum, are normal and intact. No evidence of fractures, dislocations, or significant osseous lesions. Hip Joints: Internal fixation of the right femoral neck using a dynamic hip screw. Hip joints are normal with preserved joint spaces. No evidence of hip dislocation, subluxation, or significant degenerative changes. Acetabulum: Acetabular structures appear normal and intact. No signs of acetabular fracture or dysplasia. Symphysis Pubis: The symphysis pubis is normal and intact. No evidence of separation or widening. Sacroiliac Joints: Bilateral degenerative sacroiliitis. Soft Tissues: Visualized soft tissues are normal and unremarkable. No soft tissue swelling, calcifications, or masses. IMPRESSION: 1. Internal fixation of the right femoral neck using a dynamic hip screw. 2. Bilateral degenerative sacroiliitis. 3. Lumbar spondylotic changes. Disclaimer: A subtle bone abnormality or fracture may not be readily apparent on X-rays, thus clinical correlation and further imaging including follow-up CT, MRI, or follow-up X-rays are advised as needed. Electronically signed by Zonia Maradiaga 07-09-2024 8:[address] 07/09/24 20:38 Exam(s): CT LEFT HIP Without Contrast EXAM: CT Left Lower Extremity Without Intravenous Contrast, Hip CLINICAL HISTORY: Reason for exam: fall, abnormal x ray. TECHNIQUE: Axial computed tomography images of the left hip without intravenous contrast. CTDI is 25.05 mGy and DLP is 432.62 mGy-cm. Automated exposure control was utilized for the study. A dose lowering technique was utilized adhering to the principles of ALARA. COMPARISON: No relevant prior studies available. FINDINGS: Bones/joints: Acute intertrochanteric fracture on the left. Moderate degenerative changes of the left hip. No acetabular fracture. No pubic ramus fracture. No dislocation. Soft tissues: Unremarkable. IMPRESSION: Acute intertrochanteric fracture on the left. Electronically signed by: Lalit Swift MD 07/09/24 21:59 PM Venous Doppler Study 07/10/24 00:38 EXAM: US venous doppler LE BI CLINICAL HISTORY: Leg pain and swelling. TECHNIQUE: Ultrasound examination of bilateral lower extremity veins was performed in real-time and duplex. One or more of the following were performed- spectral analysis, resistive index, waveform analysis, and pulsed Doppler. COMPARISON: None. FINDINGS: Normal phasic, non-pulsatile, and spontaneous flow is noted in bilateral GSV, common femoral, superficial femoral, popliteal, posterior tibial, peroneal and anterior tibial veins. Visualized veins of both lower extremities demonstrate normal compressibility. No sonographic evidence of acute deep vein thrombosis (DVT) is detected in the visualized veins of both lower extremities. Compression and Augmentation: All evaluated veins compress fully with applied transducer pressure. Augmentation of venous flow is noted with distal compression. Additional Findings: No evidence of intraluminal thrombus. IMPRESSION: No sonographic evidence of acute DVT was detected in bilateral GSV, common femoral, superficial femoral, popliteal, posterior tibial, peroneal and anterior tibial veins at the time of examination. Disclaimer: DVT could be missed early in the disease when clot burden is minimal. For patients with moderate and high pretest probability of DVT and negative ultrasound, the [employer] clinical guidelines recommend testing with a D-dimer assay or repeat ultrasound in 5-7 days. If symptoms worsen, the Society of radiologists in ultrasound recommends repeating ultrasound even earlier. Electronically signed by Zonia Maradiaga 07-10-2024 06:[address] 07/10/24 08:00 CT chest diagnostic wo con CLINICAL HISTORY: Left lower zone reticular shadowing on cxr TECHNIQUE: Multidetector row helical CT of the chest was performed. Coronal and sagittal reformations were obtained. Automated dose lowering techniques and/or adjustment according to patient size were utilized for this exam. CT DOSE: 654.08 mGy.cm Comparison: Comparison is made to chest radiograph 07/09/2024 FINDINGS: Lungs and pleura: Peripheral interstitial thickening and atelectasis are seen. Heart and pericardium: Cardiomegaly is seen with biatrial enlargement. Vessels: Severe atherosclerotic changes in the aorta and coronary arteries. Pulmonary trunk measures 33 mm. Mediastinum and symone: Unremarkable. Chest wall and lower neck: Unremarkable. Abdomen: Unremarkable. Bones: Right shoulder arthroplasty is seen. Degenerative changes are seen lumbar spine. IMPRESSION: No acute abnormality to correspond to reticular shadowing in the left lower lobe, this likely represented atelectasis. ACT 112: Negative or not required by law. Electronically signed by: Onel Rae M.D. 07/10/2024 10:15 AM Femur X-Ray 07/10/24 12:20 FL femur LT 2V CLINICAL HISTORY: Left trochnail COMPARISON STUDY: Left femur radiographs and CT of the left hip July 09, 2024. FLUOROSCOPY TIME: 1 minute and 43 seconds. Ka,r: 37.02 mGy FLUOROSCOPIC IMAGES: 4 FINDINGS: Fluoroscopy was provided during internal fixation of the intertrochanteric fracture of the left femur trochanteric nail. Fracture alignment has improved. There are no unexpected radiopaque foreign bodies. IMPRESSION: Fluoroscopy provided during internal fixation of the intertrochanteric fracture of the left femur. ACT 112: Negative or not required by law. Electronically signed by: Erik Ahmadi M.D. 07/10/2024 2:53 PM (1) Closed intertrochanteric fracture of left hip Encounter type: initial encounter Fracture alignment: displaced Qualified Code(s): S72.142A - Displaced intertrochanteric fracture of left femur, initial encounter for closed fracture
[2024-07-11 08:37] LABS: BUN Creatinine Ratio 29.4 (10-20); Calcium 8.4 mg/dl (8.6-10.3); Creatinine Clr Calc Pharmacy 85.8 ml/min
[2024-07-11] MEDS: POT PHOSPHATE MONOBASIC W/ SOD TAB PO SCH (09:31)
--- NOTE | 2024-07-11 12:49 | Orthopedic Progress Note ---
Date of Service July 11, 2024 Assessment & Plan (1) Closed intertrochanteric fracture of left hip: Plan: POD #2 s/p ORIF L hip fracture Continue with her diet Continue to WBAT with walker. She may be OOB to chair but may require shorter duration in the chair if it continues to bother her low back and buttock.. Continue oral pain control. DVT prophylaxis: TEDs 3 weeks, foot pumps while in hospital and ASA 81 mg BID for 4 weeks. Continue PT/OT. D/C planning. Waiting for acknowledgment of placement approval. Continue care per primary service. Dressing to be changed POD 2-3 to Silverlon type dressing. This will be done tomorrow 07/12 Admission and Anticipated Discharge Date Admission Date: July 09, 2024 Subjective This 84-year-old female was seen today in her room. She is 2 days status post left trochanteric nail by Dr. Dominguez. She states she is unhappy today. She feels she was left in her bedside chair too long and it was causing pain. She is now feeling fine while reclining in her bed. She states she has been in the hospital numerous times, and every time she is told that the nursing staff are working short staffed. She feels it is not an excuse to leave her in the chair for an extended period of time. No other complaints at this time. She denies any left hip pain. Her discomfort is primarily over her ischial tuberosity, buttock, and sacrum. She denies any chest pain, shortness of breath, nausea, vomiting, or abdominal pain. Physical Exam Physical Exam: General: Well-developed, well-nourished, elderly female, in no acute distress. Laying in bed. Alert and oriented. Clearly unhappy. Skin: Warm dry with good turgor. No rashes. She has no significant ecchymosis or erythema around the left hip incision. Foam tape dressing is in place. Musculoskeletal: The patient is unable to do a straight leg raise. She can tighten her quad and extend her knee. She has intact motor function to the ankle and toes. She can plantarflex and dorsiflex both her toes and her ankle. Strength is 5/5 for resisted dorsiflexion as well as plantarflexion. No pain with logrolling of the left hip. Neurologic: Gross sensation is intact across the left leg by soft touch. Peripheral pulses are 2+. Results & Data Vital Signs (Past 12 Hours) Vital Signs Temp Pulse Pulse Resp BP Pulse Ox O2 Del Method 07/11/24 11:15 36.8 C 67 18 129/70 95 Room Air 07/11/24 07:27 36.7 C 68 18 125/68 93 Room Air 07/11/24 07:13 66 07/11/24 03:30 36.7 C 73 20 153/69 H 94 Room Air Laboratory Results CBC obtained today shows a white count of 11.19. H&H of 11.1 and 33.2. Platelets 257,000. Sodium 135, potassium 4.0. Chloride 103. BUN of 15 with creatinine 0.51. Glucose this morning is 128. Phosphorus is low at 2.3. Magnesium is normal at 1.8. (1) Closed intertrochanteric fracture of left hip Encounter type: initial encounter Fracture alignment: displaced Qualified Code(s): S72.142A - Displaced intertrochanteric fracture of left femur, initial encounter for closed fracture
[2024-07-11] MEDS ORDERED: DOCUSATE SODIUM 100 MG CAP PO PRN (14:58)
--- NOTE | 2024-07-11 15:03 | Hospitalist Progress Note ---
Date of Service July 11, 2024 Assessment & Plan (1) Closed intertrochanteric fracture of left hip: Plan: Ms. Patel is an 84-year-old female past med history significant for hypertension, not on medication vitamin D deficiency, history of urinary retention history of anxiety history of breast cancer who lives at a personal detention and ambulates with a walker came with a fall and admitted for management of left hip fracture. Closed intertrochanteric fracture of left hip s/p left trochanteric nail Secondary to Mechanical fall Postoperative acute blood loss anemia --S/P hip ORIF by Dr. Dominguez on 07/10/2024 Weightbearing as tolerated with walker PT OT Fall precautions On aspirin 81 mg twice a day if for DVT prophylaxis Pain control as needed Bowel regimen to prevent constipation Continue dressing changes needed Needs follow-up with orthopedics on discharge Monitor CBC Abnormal CXR CXR with LLL --likely haziness atelectasis --CT Chest:No acute abnormality to correspond to reticular shadowing in the left lower lobe, this likely represented atelectasis. Incentive spirometry Scalp laceration status post sunil CT head no intracranial hemorrhage dilated ventricles possible NPH; chronic finding Continue keflex Will need sunil removed in 7-10 days Hypertension Started on Coreg Labetalol as needed Monitor blood pressure Dizziness On meclizine History of breast cancer S/p mastectomy and chemo DVT Px: Aspirin 81mg BID Disposition PT OT prior to discharge CODE STATUS Full code Admission and Anticipated Discharge Date Admission Date: July 09, 2024 Subjective Patient is seen and examined at bedside States having left hip especially with movement Reports chronic dizziness No other complaints Denies any dyspnea, chest pain, nausea, vomiting, abdominal pain Review of Systems Review of Systems: All systems reviewed & are unremarkable except as noted in Subjective Physical Exam Physical Exam: Physical Exam: Vitals signs as noted above General Appearance:Obese, no apparent distress Head: normocephalic, +traumatic, scalp laceration Eyes: normal inspection, EOMI Neck: supple, Trachea midline Respiratory/Chest: Normal breath sounds, CTA, No accessory muscle use Cardiovascular: S1, S2, No murmur Abdomen/GI:Soft, Non tender, Bowel sounds present Extremities/Musculoskeletal:normal inspection, 1+edema, left hip surgical site in dressing Neurologic/Psych:AAOX3, grossly no focal neurological deficits Skin: normal color, warm Results & Data Results & Data Vital Signs (Past 12 Hours) Vital Signs Temp Pulse Pulse Resp BP Pulse Ox O2 Del Method 07/11/24 14:39 72 07/11/24 11:15 36.8 C 67 18 129/70 95 Room Air 07/11/24 07:27 36.7 C 68 18 125/68 93 Room Air 07/11/24 07:13 66 07/11/24 03:30 36.7 C 73 20 153/69 H 94 Room Air Laboratory Results Short CBC 07/11/24 Range/Units 06:17 WBC 11.19 H (4.8-10.8) K/ul Hgb 11.1 L (12.0-16.0) g/dl Hct 33.2 L (37.0-47.0) % Plt Count 257 (130-400) K/uL BMP 07/11/24 06:17 Sodium 135 L Potassium 4.0 Chloride 103 Carbon Dioxide 25 BUN 15 Creatinine 0.51 L Glucose 128 H Calcium 8.4 L (1) Closed intertrochanteric fracture of left hip Encounter type: initial encounter Fracture alignment: displaced Qualified Code(s): S72.142A - Displaced intertrochanteric fracture of left femur, initial encounter for closed fracture
[2024-07-11] MEDS: ASPIRIN 81 MG ECTAB PO SCH (20:11)
[2024-07-12 06:06] LABS: Hemoglobin 10.4 g/dl (12.0-16.0); Mean Corpuscular Hemoglobin 29.5 pg (25.0-34.0); Mean Corpuscular Hgb Conc 33.5 g/dL (32.0-36.0); Mean Corpuscular Volume 88.1 fL (80.0-100.0); Mean Platelet Volume 9.9 fL (9.4-12.4); Platelet Count 257 K/uL (130-400); RDW Coefficient of Variation 13.5 % (11.5-14.5); RDW Standard Deviation 43.6 fL (36.4-46.3); Red Blood Count 3.52 M/uL (4.20-5.40); White Blood Count 10.14 K/ul (4.8-10.8)
[2024-07-12 06:26] LABS: BUN Creatinine Ratio 37.7 (10-20); Calcium 8.2 mg/dl (8.6-10.3); Creatinine Clr Calc Pharmacy 81.4 ml/min; Magnesium 1.8 mg/dl (1.7-2.4); Phosphorus 1.9 mg/dl (2.5-4.9); Potassium 3.5 mmol/L (3.5-5.1)
[2024-07-12] MEDS ORDERED: POTASSIUM PHOS 3 MMOL/1 ML INFUSION IV ONE (09:03)
[2024-07-12] MEDS: HYDROmorphone INJ 0.5 MG/0.5 ML SYR IV PRN (09:19)
[2024-07-12] MEDS: POTASSIUM PHOSPHATE 21 MMOL in SODIUM CHLORIDE 0.9% 500 ML IV ONE (09:30)
--- NOTE | 2024-07-12 12:29 | Orthopedic Progress Note ---
Date of Service July 12, 2024 Assessment & Plan (1) Closed intertrochanteric fracture of left hip: Plan: POD #3 s/p ORIF left hip fracture Dressing changed today. Silverlon applied. Incisions are intact with no evidence of dehiscence or infection. Continue diet Continue to WBAT with walker. Continue oral pain control. DVT prophylaxis: TEDs 3 weeks, foot pumps while in hospital and ASA 81 mg BID for 4 weeks. Continue PT/OT. D/C planning. Waiting for acknowledgment of placement approval. Continue care per primary service. Admission and Anticipated Discharge Date Admission Date: July 09, 2024 Subjective Patient seen in bed today. She was participating with physical therapy and had a lot of pain with movement and reportedly fatigued quickly with activity. She denies any other complaints at this time aside from pain with movement. Physical Exam Physical Exam: General: Well-developed, well-nourished, laying in bed. In no distress. Cardiovascular: Peripheral pulses 2+ Musculoskeletal: Unable to perform straight leg raise. She has intact motor function to the ankle and toes. She can plantarflex and dorsiflex both her toes and her ankle. Strength is 5/5 for resisted dorsiflexion as well as plantarflexion. No pain with logrolling of the left hip. Soft tissue about the left hip without induration, but it is tender Skin: Foam tape dressing removed today, shows intact incisions with sunil. No surrounding erythema. No drainage. Mild ecchymosis posterior to incisions. Neurologic: Gross sensation is intact across the left leg by soft touch. Results & Data Vital Signs (Past 12 Hours) Vital Signs Temp Pulse Pulse Resp BP Pulse Ox O2 Del Method 07/12/24 12:19 98.8 F 66 16 115/58 L 90 Room Air 07/12/24 07:39 98.4 F 61 20 163/70 H 93 Room Air 07/12/24 07:31 64 07/12/24 07:31 Room Air 07/12/24 03:35 98.4 F 67 18 148/76 H 95 Room Air (1) Closed intertrochanteric fracture of left hip Encounter type: initial encounter Fracture alignment: displaced Qualified Code(s): S72.142A - Displaced intertrochanteric fracture of left femur, initial encounter for closed fracture
--- NOTE | 2024-07-12 14:37 | Hospitalist Progress Note ---
Date of Service July 12, 2024 Assessment & Plan (1) Closed intertrochanteric fracture of left hip: Plan: Ms. Patel is an 84-year-old female past med history significant for hypertension, not on medication vitamin D deficiency, history of urinary retention history of anxiety history of breast cancer who lives at a personal alf and ambulates with a walker came with a fall and admitted for management of left hip fracture. Closed intertrochanteric fracture of left hip s/p left trochanteric nail Secondary to Mechanical fall Postoperative acute blood loss anemia --S/P hip ORIF by Dr. Dominguez on 07/10/2024 Continue PT OT while hospitalized Fall precautions On aspirin 81 mg twice a day if for DVT prophylaxis Pain control as needed Bowel regimen to prevent constipation Needs follow-up with orthopedics on discharge Monitor CBC Dressing change today Weightbearing as tolerated with walker per Ortho Plan to discharge to SNF when accepted Abnormal CXR CXR with LLL --likely haziness atelectasis --CT Chest:No acute abnormality to correspond to reticular shadowing in the left lower lobe, this likely represented atelectasis. Incentive spirometry Scalp laceration status post sunil CT head no intracranial hemorrhage dilated ventricles possible NPH; chronic finding Continue keflex Will need sunil removed in 7-10 days Hypertension Started on Coreg Labetalol as needed Monitor and adjust blood pressure medications as needed Dizziness On meclizine History of breast cancer S/p mastectomy and chemo DVT Px: Aspirin 81mg BID Disposition SNF when accepted CODE STATUS Full code Admission and Anticipated Discharge Date Admission Date: July 09, 2024 Subjective Patient is seen and examined at bedside Reports significant left hip pain especially with PT Offers no other complaints Had PT evaluation this morning Denies any dyspnea, chest pain, nausea, vomiting, abdominal pain Review of Systems Review of Systems: All systems reviewed & are unremarkable except as noted in Subjective Physical Exam Physical Exam: Physical Exam: Vitals signs as noted above General Appearance:Obese, no apparent distress Head: normocephalic, +traumatic, scalp laceration Eyes: normal inspection, EOMI Neck: supple, Trachea midline Respiratory/Chest: Normal breath sounds, CTA, No accessory muscle use Cardiovascular: S1, S2, No murmur Abdomen/GI:Soft, Non tender, Bowel sounds present Extremities/Musculoskeletal:normal inspection, 1+edema, left hip surgical site in dressing Neurologic/Psych:AAOX3, grossly no focal neurological deficits Skin: normal color, warm Results & Data Results & Data Vital Signs (Past 12 Hours) Vital Signs Temp Pulse Pulse Resp BP Pulse Ox O2 Del Method 07/12/24 12:19 37.1 C 66 16 115/58 L 90 Room Air 07/12/24 07:39 36.9 C 61 20 163/70 H 93 Room Air 07/12/24 07:31 64 07/12/24 07:31 Room Air 07/12/24 03:35 36.9 C 67 18 148/76 H 95 Room Air Laboratory Results Short CBC 07/12/24 Range/Units 05:30 WBC 10.14 (4.8-10.8) K/ul Hgb 10.4 L (12.0-16.0) g/dl Hct 31.0 L (37.0-47.0) % Plt Count 257 (130-400) K/uL [facility] 07/12/24 05:30 Sodium 139 Potassium 3.5 Chloride 105 Carbon Dioxide 29 BUN 20 Creatinine 0.53 L Glucose 108 H Calcium 8.2 L (1) Closed intertrochanteric fracture of left hip Encounter type: initial encounter Fracture alignment: displaced Qualified Code(s): S72.142A - Displaced intertrochanteric fracture of left femur, initial encounter for closed fracture
[2024-07-13 07:43] VITALS: RESP 18
[2024-07-13 08:23] LABS: Hematocrit (blood only) 30.4 % (37.0-47.0); Mean Corpuscular Hemoglobin 29.2 pg (25.0-34.0); Mean Corpuscular Hgb Conc 32.9 g/dL (32.0-36.0); Mean Corpuscular Volume 88.9 fL (80.0-100.0); Mean Platelet Volume 10.4 fL (9.4-12.4); Platelet Count 258 K/uL (130-400); RDW Coefficient of Variation 13.4 % (11.5-14.5); Red Blood Count 3.42 M/uL (4.20-5.40); White Blood Count 8.76 K/ul (4.8-10.8)
[2024-07-13 08:30] LABS: BUN Creatinine Ratio 31.1 (10-20); Calcium 8.2 mg/dl (8.6-10.3); Creatinine Clr Calc Pharmacy 95.8 ml/min; Potassium 3.7 mmol/L (3.5-5.1)
[2024-07-13] MEDS ORDERED: POTASSIUM PHOS 3 MMOL/1 ML INFUSION IV ONE (08:56)
[2024-07-13] MEDS: POTASSIUM PHOSPHATE 21 MMOL in SODIUM CHLORIDE 0.9% 500 ML IV ONE (09:28)
--- NOTE | 2024-07-13 11:40 | Hospitalist Progress Note ---
Date of Service July 13, 2024 Assessment & Plan (1) Closed intertrochanteric fracture of left hip: Plan: Ms. Patel is an 84-year-old female past med history significant for hypertension, not on medication vitamin D deficiency, history of urinary retention history of anxiety history of breast cancer who lives at a personal halfway and ambulates with a walker came with a fall and admitted for management of left hip fracture. Closed intertrochanteric fracture of left hip s/p left trochanteric nail Secondary to Mechanical fall Postoperative acute blood loss anemia --S/P hip ORIF by Dr. Dominguez on 07/10/2024 Continue PT OT while hospitalized Fall precautions On aspirin 81 mg twice a day if for DVT prophylaxis Pain at surgical site improving Bowel regimen to prevent constipation Needs follow-up with orthopedics on discharge Monitor CBC Weightbearing as tolerated with walker per Ortho Plan to discharge to SNF today Needs follow-up with orthopedics on discharge Abnormal CXR CXR with LLL --likely haziness atelectasis --CT Chest:No acute abnormality to correspond to reticular shadowing in the left lower lobe, this likely represented atelectasis. Incentive spirometry Scalp laceration status post sunil CT head no intracranial hemorrhage dilated ventricles possible NPH; chronic finding Continue keflex Will need sunil removed in 7-10 days Hypertension Started on Coreg--continue 3.125 mg twice a day Labetalol as needed Blood pressure better Dizziness On meclizine History of breast cancer S/p mastectomy and chemo DVT Px: Aspirin 81mg BID Disposition SNF CODE STATUS Full code Admission and Anticipated Discharge Date Admission Date: July 09, 2024 Subjective Patient is seen and examined at bedside Hip pain at surgical site improved Denies any scalp pain at the laceration site No new complaints today Denies any dyspnea, chest pain, nausea, vomiting, abdominal pain Plan to discharge to rehab facility today Review of Systems Review of Systems: All systems reviewed & are unremarkable except as noted in Subjective Physical Exam Physical Exam: Physical Exam: Vitals signs as noted above General Appearance:Obese, no apparent distress Head: normocephalic, +traumatic, scalp laceration Eyes: normal inspection, EOMI Neck: supple, Trachea midline Respiratory/Chest: Normal breath sounds, CTA, No accessory muscle use Cardiovascular: S1, S2, No murmur Abdomen/GI:Soft, Non tender, Bowel sounds present Extremities/Musculoskeletal:normal inspection, 1+edema, left hip surgical site in dressing Neurologic/Psych:AAOX3, grossly no focal neurological deficits Skin: normal color, warm Results & Data Results & Data Vital Signs (Past 12 Hours) Vital Signs Temp Pulse Pulse Resp BP Pulse Ox O2 Del Method 07/13/24 07:42 37.1 C 61 18 148/78 H 94 Room Air 07/13/24 07:20 66 07/13/24 07:20 Room Air 07/13/24 02:41 36.9 C 61 16 138/72 95 Room Air Laboratory Results Short CBC 07/13/24 Range/Units 07:41 WBC 8.76 (4.8-10.8) K/ul Hgb 10.0 L (12.0-16.0) g/dl Hct 30.4 L (37.0-47.0) % Plt Count 258 (130-400) K/uL [facility] 07/13/24 07:41 Sodium 138 Potassium 3.7 Chloride 105 Carbon Dioxide 30 BUN 14 Creatinine 0.45 L Glucose 109 H Calcium 8.2 L (1) Closed intertrochanteric fracture of left hip Encounter type: initial encounter Fracture alignment: displaced Qualified Code(s): S72.142A - Displaced intertrochanteric fracture of left femur, initial encounter for closed fracture
--- NOTE | 2024-07-13 11:54 | Discharge Summary ---
Date of Service July 13, 2024 Admission HPI Per Admitting Provider 84-year-old female past med history significant for hypertension, not on medication vitamin D deficiency, history of urinary retention history of anxiety history of breast cancer who lives at a personal [facility] and ambulates with a walker came with a fall and a laceration on the head and also complaining of left hip pain. Patient states she frequently gets dizzy. She is on meclizine. While she was ambulating with a walker she felt dizzy and fell down on the left side. Denies loss of consciousness. They were people around her and called her daughter per patient and she was brought here. Complains of left hip pain. Denies any headache. Laceration on the head was stapled. Denies any blurred vision. No runny nose or sore throat. No cough. No difficulty swallowing. Eating and drinking okay. Denies any chest pain. Denies shortness of breath. No nausea. Has some abdominal discomfort. Normal bowel and bladder movements. Hemodynamics are okay. In August 2020 patient was admitted for fall and right displaced and commuted intertrochanteric hip fracture and was status post ORIF at that time and was also treated for UTI during that admission. Past medical history. As mentioned above Past surgical history. Right humeral fracture with internal fixation March 2021. She was right total shoulder arthroplasty in March 2021. Right hip fracture fixation in August 2020. Right partial mastectomy in 2013. Right complete simple mastectomy in 2015. Bilateral cataracts. Social history. Current living at [facility]. No smoking. No alcohol use. No drug use. Family history. No family history on file. Admission Exam Per Admitting Provider General- Not in acute distress Head- Laceration on top of the head s/p sunil Eyes- PERRL. ENT- oropharynx clear Neck- supple, no JVD. Lungs- clear to auscultation no wheezing or crackles Heart- regular rate and rhythm; no murmur, no gallop. Abdomen- normal bowel sounds, soft, nontender, no distensions Extremities- mild pretibial edema seen. , Left lower extremity is shortened Neuro- alert, oriented PERRL, no facial palsy; no dysarthria; obeys simple commands Principal Diagnosis Closed intertrochanteric fracture of left hip s/p left trochanteric nail Mechanical fall Postoperative acute blood loss anemia Scalp laceration Hypertension Hypophosphatemia Discharge Data Allergies Allergy/AdvReac Type Severity Reaction Status Date / Time amoxicillin Allergy Intermediate Rash Verified 07/10/24 12:02 latex Allergy Intermediate Rash Verified 07/10/24 12:02 Consultations 07/09/24 21:20 ED Decision to Admit Stat 07/10/24 08:00 Consult Orthopedic Surgery Routine Procedures Performed Operation Date: 07/10/24 08:20 Actual Procedures p Left Troch Nail(Left) - Justin Dominguez MD Ordered Studies Laboratory Results WBC 8.76 K/ul (4.8-10.8) 07/13/24 07:41 RBC 3.42 M/uL (4.20-5.40) L 07/13/24 07:41 Hgb 10.0 g/dl (12.0-16.0) L 07/13/24 07:41 Hct 30.4 % (37.0-47.0) L 07/13/24 07:41 MCV 88.9 fL (80.0-100.0) 07/13/24 07:41 MCH 29.2 pg (25.0-34.0) 07/13/24 07:41 MCHC 32.9 g/dL (32.0-36.0) 07/13/24 07:41 RDW Std Deviation 44.0 fL (36.4-46.3) 07/13/24 07:41 RDW Coeff of Kelsey 13.4 % (11.5-14.5) 07/13/24 07:41 Plt Count 258 K/uL (130-400) 07/13/24 07:41 MPV 10.4 fL (9.4-12.4) 07/13/24 07:41 Immature Gran % (Auto) 0.4 % 07/11/24 06:17 Neut % (Auto) 75.3 % 07/11/24 06:17 Lymph % (Auto) 10.5 % 07/11/24 06:17 [place] % (Auto) 13.7 % 07/11/24 06:17 Eos % (Auto) 0.0 % 07/11/24 06:17 Baso % (Auto) 0.1 % 07/11/24 06:17 Neut # (Auto) 8.44 K/uL (1.40-6.50) H 07/11/24 06:17 Lymph # (Auto) 1.17 K/uL (1.20-3.40) L 07/11/24 06:17 [place] # (Auto) 1.53 K/uL (0.11-0.59) H 07/11/24 06:17 Eos # (Auto) 0.00 K/uL (0.00-0.50) 07/11/24 06:17 Baso # (Auto) 0.01 K/uL (0.00-0.20) 07/11/24 06:17 Immature Gran # (Auto) 0.04 K/uL (0.01-0.20) 07/11/24 06:17 PT 11.5 Seconds (9.0-12.0) 07/09/24 18:49 INR 1.1 (0.9-1.1) 07/09/24 18:49 APTT 26 Seconds (21-31) 07/09/24 18:49 PTT Ratio 1.0 07/09/24 18:49 Sodium 138 mmol/L (136-145) 07/13/24 07:41 Potassium 3.7 mmol/L (3.5-5.1) 07/13/24 07:41 Chloride 105 mmol/L (98-107) 07/13/24 07:41 Carbon Dioxide 30 mmol/L (21-32) 07/13/24 07:41 Anion Gap 3 (3-11) 07/13/24 07:41 BUN 14 mg/dl (6-23) 07/13/24 07:41 Creatinine 0.45 mg/dl (0.6-1.2) L 07/13/24 07:41 Est Cr Clr Drug Dosing 95.8 ml/min 07/13/24 07:41 eGFR 94.80 07/13/24 07:41 BUN/Creatinine Ratio 31.1 (10-20) H 07/13/24 07:41 Glucose 109 mg/dl (70-99(Fasting)) H 07/13/24 07:41 Calcium 8.2 mg/dl (8.6-10.3) L 07/13/24 07:41 Phosphorus 2.0 mg/dl (2.5-4.9) L 07/13/24 07:41 Magnesium 1.8 mg/dl (1.7-2.4) 07/12/24 05:30 Total Bilirubin 0.5 mg/dl (0.2-1.0) 07/09/24 18:49 AST 41 U/L (13-39) H 07/09/24 18:49 ALT 36 U/L (7-52) 07/09/24 18:49 Alkaline Phosphatase 97 U/L (34-104) 07/09/24 18:49 Troponin I High Sens 12.0 pg/ml (0-14) 07/10/24 11:39 B-Natriuretic Peptide 126 pg/ml (0-100) H 07/10/24 11:06 Total Protein 8.1 gm/dl (6.0-8.3) 07/09/24 18:49 Albumin 4.5 gm/dl (3.4-5.0) 07/09/24 18:49 Globulin 3.6 gm/dl (2.5-4.0) 07/09/24 18:49 Albumin/Globulin Ratio 1.3 (0.9-2) 07/09/24 18:49 Lipase 29 U/L (11-82) 07/09/24 18:[address] 07/09/24 18:16 Exam(s): CT C SPINE EXAM: CT Cervical Spine Without Intravenous Contrast CLINICAL HISTORY: Reason for exam: fall. TECHNIQUE: Axial computed tomography images of the cervical spine without intravenous contrast. CTDI is 24.26 mGy and DLP is 506.76 mGy-cm. Automated exposure control was utilized for the study. A dose lowering technique was utilized adhering to the principles of ALARA. COMPARISON: No relevant prior studies available. FINDINGS: Vertebrae: No acute fracture. No malalignment. Soft tissues: Unremarkable. Lung apices: Scarring at the right lung apex. IMPRESSION: No acute findings in the cervical spine. Electronically signed by: Lalit Swift MD 07/09/24 21:14 PM Chest X-Ray 07/09/24 18:16 EXAM: XR chest 1V portable CLINICAL HISTORY: FALL HKS/KFK TECHNIQUE: An X-ray image of the chest is obtained in AP projection. COMPARISON: 09/16/2022 CR chest FINDINGS: Pulmonary Parenchyma: There is evidence of reticular shadowing in the left lower zone with some soft tissue haze. No evidence of consolidation, collapse, or focal opacities. No pulmonary nodules are identified. Left costophrenic angle is blunted signifying mil pleural thickening. Right costophrenic angle is clear. Heart and Mediastinum: Heart size and shape are normal. No mediastinal widening or masses. No hilar or mediastinal lymphadenopathy. Bony Thorax: Bony thorax appears intact without fractures or deformities. Right total shoulder reverse arthroplasty. Soft Tissues: Soft tissues overlying the chest wall are unremarkable. IMPRESSION: 1. Left lower zone reticular shadowing with some soft tissue haze showing interval increase on comparison. 2. No acute consolidation or collapse is seen on either side. 3. Right total shoulder reverse arthroplasty. 4. CT chest is advised for further characterization if clinically needed. Electronically signed by Zonia Maradiaga 07-09-2024 7:[address] 07/09/24 18:16 Exam(s): CT HEAD Without Contrast EXAM: CT Head Without Intravenous Contrast CLINICAL HISTORY: Reason for exam: fall. TECHNIQUE: Axial computed tomography images of the head/brain without intravenous contrast. CTDI is 38.64 mGy and DLP is 702.46 mGy-cm. Automated exposure control was utilized for the study. A dose lowering technique was utilized adhering to the principles of ALARA. COMPARISON: Head CT 09/22/2022 FINDINGS: Brain: No intracranial hemorrhage. Global parenchymal atrophy and chronic microvascular ischemic changes. Ventricles: Dilated ventricles slightly out of proportion to the degree of volume loss potentially representing NPH. Bones/joints: Unremarkable. No fracture. Soft tissues: Scalp laceration. Sinuses: No acute sinusitis. Mastoid air cells: Unremarkable as visualized. IMPRESSION: 1. No intracranial hemorrhage. 2. Global parenchymal atrophy and chronic microvascular ischemic changes. 3. Scalp laceration. 4. Dilated ventricles slightly out of proportion to the degree of volume loss potentially representing NPH. Electronically signed by: Lalit Swift MD 07/09/24 21:09 PM Pelvis X-Ray 07/09/24 18:16 EXAM: XR pelvis 1-2V routine CLINICAL HISTORY: FALL. TECHNIQUE: X-ray images of the pelvis were obtained in anteroposterior (AP) projection. COMPARISON: CR dated 08/21/2020. FINDINGS: Bone Structure: Pelvic bones, including the iliac wings, ischium, pubis, and sacrum, are normal and intact. No evidence of fractures, dislocations, or significant osseous lesions. Hip Joints: Internal fixation of the right femoral neck using a dynamic hip screw. Hip joints are normal with preserved joint spaces. No evidence of hip dislocation, subluxation, or significant degenerative changes. Acetabulum: Acetabular structures appear normal and intact. No signs of acetabular fracture or dysplasia. Symphysis Pubis: The symphysis pubis is normal and intact. No evidence of separation or widening. Sacroiliac Joints: Bilateral degenerative sacroiliitis. Soft Tissues: Visualized soft tissues are normal and unremarkable. No soft tissue swelling, calcifications, or masses. IMPRESSION: 1. Internal fixation of the right femoral neck using a dynamic hip screw. 2. Bilateral degenerative sacroiliitis. 3. Lumbar spondylotic changes. Disclaimer: A subtle bone abnormality or fracture may not be readily apparent on X-rays, thus clinical correlation and further imaging including follow-up CT, MRI, or follow-up X-rays are advised as needed. Electronically signed by Zonia Maradiaga 07-09-2024 8:[address] 07/09/24 20:38 Exam(s): CT LEFT HIP Without Contrast EXAM: CT Left Lower Extremity Without Intravenous Contrast, Hip CLINICAL HISTORY: Reason for exam: fall, abnormal x ray. TECHNIQUE: Axial computed tomography images of the left hip without intravenous contrast. CTDI is 25.05 mGy and DLP is 432.62 mGy-cm. Automated exposure control was utilized for the study. A dose lowering technique was utilized adhering to the principles of ALARA. COMPARISON: No relevant prior studies available. FINDINGS: Bones/joints: Acute intertrochanteric fracture on the left. Moderate degenerative changes of the left hip. No acetabular fracture. No pubic ramus fracture. No dislocation. Soft tissues: Unremarkable. IMPRESSION: Acute intertrochanteric fracture on the left. Electronically signed by: Lalit Swift MD 07/09/24 21:59 PM Venous Doppler Study 07/10/24 00:38 EXAM: US venous doppler LE BI CLINICAL HISTORY: Leg pain and swelling. TECHNIQUE: Ultrasound examination of bilateral lower extremity veins was performed in real-time and duplex. One or more of the following were performed- spectral analysis, resistive index, waveform analysis, and pulsed Doppler. COMPARISON: None. FINDINGS: Normal phasic, non-pulsatile, and spontaneous flow is noted in bilateral GSV, common femoral, superficial femoral, popliteal, posterior tibial, peroneal and anterior tibial veins. Visualized veins of both lower extremities demonstrate normal compressibility. No sonographic evidence of acute deep vein thrombosis (DVT) is detected in the visualized veins of both lower extremities. Compression and Augmentation: All evaluated veins compress fully with applied transducer pressure. Augmentation of venous flow is noted with distal compression. Additional Findings: No evidence of intraluminal thrombus. IMPRESSION: No sonographic evidence of acute DVT was detected in bilateral GSV, common femoral, superficial femoral, popliteal, posterior tibial, peroneal and anterior tibial veins at the time of examination. Disclaimer: DVT could be missed early in the disease when clot burden is minimal. For patients with moderate and high pretest probability of DVT and negative ultrasound, the [employer] clinical guidelines recommend testing with a D-dimer assay or repeat ultrasound in 5-7 days. If symptoms worsen, the Society of radiologists in ultrasound recommends repeating ultrasound even earlier. Electronically signed by Zonia Maradiaga 07-10-2024 06:[address] 07/10/24 08:00 CT chest diagnostic wo con CLINICAL HISTORY: Left lower zone reticular shadowing on cxr TECHNIQUE: Multidetector row helical CT of the chest was performed. Coronal and sagittal reformations were obtained. Automated dose lowering techniques and/or adjustment according to patient size were utilized for this exam. CT DOSE: 654.08 mGy.cm Comparison: Comparison is made to chest radiograph 07/09/2024 FINDINGS: Lungs and pleura: Peripheral interstitial thickening and atelectasis are seen. Heart and pericardium: Cardiomegaly is seen with biatrial enlargement. Vessels: Severe atherosclerotic changes in the aorta and coronary arteries. Pulmonary trunk measures 33 mm. Mediastinum and symone: Unremarkable. Chest wall and lower neck: Unremarkable. Abdomen: Unremarkable. Bones: Right shoulder arthroplasty is seen. Degenerative changes are seen lumbar spine. IMPRESSION: No acute abnormality to correspond to reticular shadowing in the left lower lobe, this likely represented atelectasis. ACT 112: Negative or not required by law. Electronically signed by: Onel Rae M.D. 07/10/2024 10:15 AM Femur X-Ray 07/10/24 12:20 FL femur LT 2V CLINICAL HISTORY: Left trochnail COMPARISON STUDY: Left femur radiographs and CT of the left hip July 09, 2024. FLUOROSCOPY TIME: 1 minute and 43 seconds. Pepitor: 37.02 mGy FLUOROSCOPIC IMAGES: 4 FINDINGS: Fluoroscopy was provided during internal fixation of the intertrochanteric fracture of the left femur trochanteric nail. Fracture alignment has improved. There are no unexpected radiopaque foreign bodies. IMPRESSION: Fluoroscopy provided during internal fixation of the intertrochanteric fracture of the left femur. ACT 112: Negative or not required by law. Electronically signed by: Erik Ahmadi M.D. 07/10/2024 2:53 PM Hospital Course (1) Closed intertrochanteric fracture of left hip: Ms. Patel is an 84-year-old female past med history significant for hypertension, not on medication vitamin D deficiency, history of urinary ret ention history of anxiety history of breast cancer who lives at a personal [facility] and ambulates with a walker came with a fall and admitted for management of left hip fracture. Closed intertrochanteric fracture of left hip s/p left trochanteric nail Secondary to Mechanical fall Postoperative acute blood loss anemia --S/P hip ORIF by Dr. Dominguez on 07/10/2024 Continue PT OT while hospitalized Fall precautions On aspirin 81 mg twice a day if for DVT prophylaxis Pain at surgical site improving Bowel regimen to prevent constipation Needs follow-up with orthopedics on discharge Monitor CBC Weightbearing as tolerated with walker per Ortho Plan to discharge to SNF today Needs follow-up with orthopedics on discharge Abnormal CXR CXR with LLL --likely haziness atelectasis --CT Chest:No acute abnormality to correspond to reticular shadowing in the left lower lobe, this likely represented atelectasis. Incentive spirometry Scalp laceration status post sunil CT head no intracranial hemorrhage dilated ventricles possible NPH; chronic finding Continue keflex Will need sunil removed in 7-10 days Hypertension Started on Coreg--continue 3.125 mg twice a day Labetalol as needed Blood pressure better Hypophosphatemia Replete electrolytes as needed Monitor Dizziness On meclizine History of breast cancer S/p mastectomy and chemo DVT Px: Aspirin 81mg BID Disposition SNF CODE STATUS Full code Total Time Total Time Spent Total Time Spent (In Minutes): 47 minutes Discharge Plan Discharge Items Patient Disposition: Transfer Halfway Fac Reason For Visit: FALL, LEFT HIP FRACTURE? Discharge Diagnosis: Closed intertrochanteric fracture of left hip s/p left trochanteric nail Mechanical fall Postoperative acute blood loss anemia Scalp laceration Hypertension Hypophosphatemia Activity: Per Instructions section Exercise/Sports: Gradually increase as tolerated Non-emergency contact: Primary Care Provider and Surgeon Call non-emergency contact if: you have any medication questions, your symptoms worsen, your pain is concerning for you and you have a fever Follow-up/Referrals: Miranda Beaulieu DO [Primary Care Provider] - Diet: Heart Healthy [facility] Attending Provider Instructions: Follow-up with your primary care physician in 1 week upon discharge from rehab facility Follow-up with your orthopedic surgeon Dr. Dominguez as recommended --Monitor your blood pressure regularly as advised. Discuss with your physician for further adjustment of medications as needed. -- Continue aspirin 81 mg twice a day for 4 weeks to prevent blood clots as recommended by your orthopedic surgeon --Get blood work (basic metabolic panel, phosphorus level) in 1 week Seek immediate medical attention if your symptoms reoccur or worsen Please take all medications as instructed on discharge list below. Please call if you have any questions or problems. You can reach a [facility] hospitalist on duty at [facility] 24 hours a day by calling [phone] [facility] [employer] Provider Instructions: ORTHOPEDIC DISCHARGE INSTRUCTIONS -Weight bearing as tolerated with walker to assist in ambulation -PT/OT -Frequently ice, at least 20 minutes 5 times a day. -You may shower on Post op Day 2 -Leave silverlon dressing in place until follow up appointment -DVT prophylaxis per medicine service -Pain control: per medicine service -Follow up in 2 weeks with [facility] for post op evaluation and staple. Please call our office sooner @ [phone] if you have any questions or concerns Pending Studies at Discharge: No Stand-Alone Forms: My [facility] Skilled Items Patient informed of condition?: Yes DNR: No Discharge Level of Care: Skilled Communicable Disease: No Discharge Prognosis: Stable Lines: None Urinary Catheter: No Medications and DC Order Prescriptions: New acetaminophen 325 mg Tablet 650 mg PO Q8H PRN (Reason: fever or pain) Qty: 10 0RF carvedilol 3.125 mg Tablet 3.125 mg PO BIDM Qty: 60 1RF aspirin 81 mg Tablet,Delayed Release (Dr/Ec) 81 mg PO BID 28 Days Qty: 56 0RF docusate sodium 100 mg Capsule 100 mg PO BID PRN (Reason: constipation ) Qty: 30 0RF Phospha 250 Neutral 250 mg Tablet 1 tab PO TID Qty: 15 0RF polyethylene glycol 3350 [Miralax] 17 gram Powder In Packet 17 g PO DAILY PRN (Reason: constipation) Qty: 30 0RF oxycodone 5 mg tablet 5 mg PO Q8H PRN (Reason: pain) Qty: 10 0RF Continued escitalopram oxalate 10 mg tablet 10 mg PO DAILY cholecalciferol (vitamin D3) [Vitamin D3] 50 mcg (2,000 unit) Tablet 50 mcg PO DAILY meclizine 12.5 mg PO TID Discharge Orders: Discharge Order (Routine); Ordered 07/13/24 Ordered By: Ector Eller Admission Data Admit Date/Time: 07/09/24 22:06 Attending Provider: Ector Eller Admit Provider: Yandel Flores Primary Care Provider: Miranda Beaulieu Other Providers: Luis Yang; Stefano Field [facility]; Yandel Flores; Justin Dominguez A
[2024-07-13 15:43] VITALS: BP 146/79; PULSE 60; TEMP 98.1; O2SAT 96
--- NOTE | 2024-07-13 16:41 | Orthopedic Progress Note ---
Date of Service July 13, 2024 Assessment & Plan (1) Closed intertrochanteric fracture of left hip: Plan: POD #4 s/p ORIF left hip fracture Dressing changed yesterday. Silverlon applied. Continue diet Continue to WBAT with walker. Continue oral pain control. DVT prophylaxis: TEDs 3 weeks, foot pumps while in hospital and ASA 81 mg BID for 4 weeks. Continue PT/OT. D/C planning. Waiting for acknowledgment of placement approval. Continue care per primary service. Admission and Anticipated Discharge Date Admission Date: July 09, 2024 Subjective This 84-year-old female seen for follow-up of a left hip fracture open reduction internal fixation with trochanteric nailing performed by Dr. Dominguez 4 days ago. Patient states that her pain is well-controlled with p.o. pain medication. She is currently receiving some IV potassium ordered by the medicine service. Patient states that she still has some difficulty lifting her left lower extremity. She denies numbness or tingling. She has no complaint of chest pain, shortness of breath, fever, chills, sweats, nausea, vomiting or diarrhea. Review of Systems Review of Systems: All systems reviewed & are unremarkable except as noted in Subjective Physical Exam Physical Exam: Left hip: Silverlon dressing is clean dry and intact left in place. Patient has no discomfort with logroll testing. She tolerates passive hip flexion to about 80 degrees. She does feel a slight tugging sensation with light passive internal hip rotation but has no discomfort with external hip rotation. She is able to detect light sensation to touch over the pads of her digits. Her peripheral pulses are 2+. She is neurovascularly intact in the left lower extremity. She was able to slightly lift her foot from the bed and actively dorsi and plantarflex her foot. Results & Data Vital Signs (Past 12 Hours) Vital Signs Temp Pulse Pulse Pulse Resp BP Pulse Ox 07/13/24 15:42 36.7 C 60 18 146/79 H 96 07/13/24 13:55 36.8 C 67 77 18 120/71 93 07/13/24 11:56 36.8 C 77 18 120/71 93 07/13/24 07:42 37.1 C 61 18 148/78 H 94 07/13/24 07:20 66 07/13/24 07:20 O2 Del Method 07/13/24 15:42 Room Air 07/13/24 13:55 07/13/24 11:56 Room Air 07/13/24 07:42 Room Air 07/13/24 07:20 07/13/24 07:20 Room Air Diagnostic Findings Laboratory Results WBC 8.76 K/ul (4.8-10.8) 07/13/24 07:41 RBC 3.42 M/uL (4.20-5.40) L 07/13/24 07:41 Hgb 10.0 g/dl (12.0-16.0) L 07/13/24 07:41 Hct 30.4 % (37.0-47.0) L 07/13/24 07:41 MCV 88.9 fL (80.0-100.0) 07/13/24 07:41 MCH 29.2 pg (25.0-34.0) 07/13/24 07:41 MCHC 32.9 g/dL (32.0-36.0) 07/13/24 07:41 RDW Std Deviation 44.0 fL (36.4-46.3) 07/13/24 07:41 RDW Coeff of Kelsey 13.4 % (11.5-14.5) 07/13/24 07:41 Plt Count 258 K/uL (130-400) 07/13/24 07:41 MPV 10.4 fL (9.4-12.4) 07/13/24 07:41 Immature Gran % (Auto) 0.4 % 07/11/24 06:17 Neut % (Auto) 75.3 % 07/11/24 06:17 Lymph % (Auto) 10.5 % 07/11/24 06:17 [place] % (Auto) 13.7 % 07/11/24 06:17 Eos % (Auto) 0.0 % 07/11/24 06:17 Baso % (Auto) 0.1 % 07/11/24 06:17 Neut # (Auto) 8.44 K/uL (1.40-6.50) H 07/11/24 06:17 Lymph # (Auto) 1.17 K/uL (1.20-3.40) L 07/11/24 06:17 [place] # (Auto) 1.53 K/uL (0.11-0.59) H 07/11/24 06:17 Eos # (Auto) 0.00 K/uL (0.00-0.50) 07/11/24 06:17 Baso # (Auto) 0.01 K/uL (0.00-0.20) 07/11/24 06:17 Immature Gran # (Auto) 0.04 K/uL (0.01-0.20) 07/11/24 06:17 PT 11.5 Seconds (9.0-12.0) 07/09/24 18:49 INR 1.1 (0.9-1.1) 07/09/24 18:49 APTT 26 Seconds (21-31) 07/09/24 18:49 PTT Ratio 1.0 07/09/24 18:49 Sodium 138 mmol/L (136-145) 07/13/24 07:41 Potassium 3.7 mmol/L (3.5-5.1) 07/13/24 07:41 Chloride 105 mmol/L (98-107) 07/13/24 07:41 Carbon Dioxide 30 mmol/L (21-32) 07/13/24 07:41 Anion Gap 3 (3-11) 07/13/24 07:41 BUN 14 mg/dl (6-23) 07/13/24 07:41 Creatinine 0.45 mg/dl (0.6-1.2) L 07/13/24 07:41 Est Cr Clr Drug Dosing 95.8 ml/min 07/13/24 07:41 eGFR 94.80 07/13/24 07:41 BUN/Creatinine Ratio 31.1 (10-20) H 07/13/24 07:41 Glucose 109 mg/dl (70-99(Fasting)) H 07/13/24 07:41 Calcium 8.2 mg/dl (8.6-10.3) L 07/13/24 07:41 Phosphorus 2.0 mg/dl (2.5-4.9) L 07/13/24 07:41 Magnesium 1.8 mg/dl (1.7-2.4) 07/12/24 05:30 Total Bilirubin 0.5 mg/dl (0.2-1.0) 07/09/24 18:49 AST 41 U/L (13-39) H 07/09/24 18:49 ALT 36 U/L (7-52) 07/09/24 18:49 Alkaline Phosphatase 97 U/L (34-104) 07/09/24 18:49 Troponin I High Sens 12.0 pg/ml (0-14) 07/10/24 11:39 B-Natriuretic Peptide 126 pg/ml (0-100) H 07/10/24 11:06 Total Protein 8.1 gm/dl (6.0-8.3) 07/09/24 18:49 Albumin 4.5 gm/dl (3.4-5.0) 07/09/24 18:49 Globulin 3.6 gm/dl (2.5-4.0) 07/09/24 18:49 Albumin/Globulin Ratio 1.3 (0.9-2) 07/09/24 18:49 Lipase 29 U/L (11-82) 07/09/24 18:[address] 07/09/24 18:16 Exam(s): CT C SPINE EXAM: CT Cervical Spine Without Intravenous Contrast CLINICAL HISTORY: Reason for exam: fall. TECHNIQUE: Axial computed tomography images of the cervical spine without intravenous contrast. CTDI is 24.26 mGy and DLP is 506.76 mGy-cm. Automated exposure control was utilized for the study. A dose lowering technique was utilized adhering to the principles of ALARA. COMPARISON: No relevant prior studies available. FINDINGS: Vertebrae: No acute fracture. No malalignment. Soft tissues: Unremarkable. Lung apices: Scarring at the right lung apex. IMPRESSION: No acute findings in the cervical spine. Electronically signed by: Lalit Swift MD 07/09/24 21:14 PM Chest X-Ray 07/09/24 18:16 EXAM: XR chest 1V portable CLINICAL HISTORY: FALL HKS/KFK TECHNIQUE: An X-ray image of the chest is obtained in AP projection. COMPARISON: 09/16/2022 CR chest FINDINGS: Pulmonary Parenchyma: There is evidence of reticular shadowing in the left lower zone with some soft tissue haze. No evidence of consolidation, collapse, or focal opacities. No pulmonary nodules are identified. Left costophrenic angle is blunted signifying mil pleural thickening. Right costophrenic angle is clear. Heart and Mediastinum: Heart size and shape are normal. No mediastinal widening or masses. No hilar or mediastinal lymphadenopathy. Bony Thorax: Bony thorax appears intact without fractures or deformities. Right total shoulder reverse arthroplasty. Soft Tissues: Soft tissues overlying the chest wall are unremarkable. IMPRESSION: 1. Left lower zone reticular shadowing with some soft tissue haze showing interval increase on comparison. 2. No acute consolidation or collapse is seen on either side. 3. Right total shoulder reverse arthroplasty. 4. CT chest is advised for further characterization if clinically needed. Electronically signed by Zonia Maradiaga 07-09-2024 7:[address] 07/09/24 18:16 Exam(s): CT HEAD Without Contrast EXAM: CT Head Without Intravenous Contrast CLINICAL HISTORY: Reason for exam: fall. TECHNIQUE: Axial computed tomography images of the head/brain without intravenous contrast. CTDI is 38.64 mGy and DLP is 702.46 mGy-cm. Automated exposure control was utilized for the study. A dose lowering technique was utilized adhering to the principles of ALARA. COMPARISON: Head CT 09/22/2022 FINDINGS: Brain: No intracranial hemorrhage. Global parenchymal atrophy and chronic microvascular ischemic changes. Ventricles: Dilated ventricles slightly out of proportion to the degree of volume loss potentially representing NPH. Bones/joints: Unremarkable. No fracture. Soft tissues: Scalp laceration. Sinuses: No acute sinusitis. Mastoid air cells: Unremarkable as visualized. IMPRESSION: 1. No intracranial hemorrhage. 2. Global parenchymal atrophy and chronic microvascular ischemic changes. 3. Scalp laceration. 4. Dilated ventricles slightly out of proportion to the degree of volume loss potentially representing NPH. Electronically signed by: Lalit Swift MD 07/09/24 21:09 PM Pelvis X-Ray 07/09/24 18:16 EXAM: XR pelvis 1-2V routine CLINICAL HISTORY: FALL. TECHNIQUE: X-ray images of the pelvis were obtained in anteroposterior (AP) projection. COMPARISON: CR dated 08/21/2020. FINDINGS: Bone Structure: Pelvic bones, including the iliac wings, ischium, pubis, and sacrum, are normal and intact. No evidence of fractures, dislocations, or significant osseous lesions. Hip Joints: Internal fixation of the right femoral neck using a dynamic hip screw. Hip joints are normal with preserved joint spaces. No evidence of hip dislocation, subluxation, or significant degenerative changes. Acetabulum: Acetabular structures appear normal and intact. No signs of acetabular fracture or dysplasia. Symphysis Pubis: The symphysis pubis is normal and intact. No evidence of separation or widening. Sacroiliac Joints: Bilateral degenerative sacroiliitis. Soft Tissues: Visualized soft tissues are normal and unremarkable. No soft tissue swelling, calcifications, or masses. IMPRESSION: 1. Internal fixation of the right femoral neck using a dynamic hip screw. 2. Bilateral degenerative sacroiliitis. 3. Lumbar spondylotic changes. Disclaimer: A subtle bone abnormality or fracture may not be readily apparent on X-rays, thus clinical correlation and further imaging including follow-up CT, MRI, or follow-up X-rays are advised as needed. Electronically signed by Zonia Maradiaga 07-09-2024 8:[address] 07/09/24 20:38 Exam(s): CT LEFT HIP Without Contrast EXAM: CT Left Lower Extremity Without Intravenous Contrast, Hip CLINICAL HISTORY: Reason for exam: fall, abnormal x ray. TECHNIQUE: Axial computed tomography images of the left hip without intravenous contrast. CTDI is 25.05 mGy and DLP is 432.62 mGy-cm. Automated exposure control was utilized for the study. A dose lowering technique was utilized adhering to the principles of ALARA. COMPARISON: No relevant prior studies available. FINDINGS: Bones/joints: Acute intertrochanteric fracture on the left. Moderate degenerative changes of the left hip. No acetabular fracture. No pubic ramus fracture. No dislocation. Soft tissues: Unremarkable. IMPRESSION: Acute intertrochanteric fracture on the left. Electronically signed by: Lalit Swift MD 07/09/24 21:59 PM Venous Doppler Study 07/10/24 00:38 EXAM: US venous doppler [facility] CLINICAL HISTORY: Leg pain and swelling. TECHNIQUE: Ultrasound examination of bilateral lower extremity veins was performed in real-time and duplex. One or more of the following were performed- spectral analysis, resistive index, waveform analysis, and pulsed Doppler. COMPARISON: None. FINDINGS: Normal phasic, non-pulsatile, and spontaneous flow is noted in bilateral GSV, common femoral, superficial femoral, popliteal, posterior tibial, peroneal and anterior tibial veins. Visualized veins of both lower extremities demonstrate normal compressibility. No sonographic evidence of acute deep vein thrombosis (DVT) is detected in the visualized veins of both lower extremities. Compression and Augmentation: All evaluated veins compress fully with applied transducer pressure. Augmentation of venous flow is noted with distal compression. Additional Findings: No evidence of intraluminal thrombus. IMPRESSION: No sonographic evidence of acute DVT was detected in bilateral GSV, common femoral, superficial femoral, popliteal, posterior tibial, peroneal and anterior tibial veins at the time of examination. Disclaimer: DVT could be missed early in the disease when clot burden is minimal. For patients with moderate and high pretest probability of DVT and negative ultrasound, the [place] [employer] clinical guidelines recommend testing with a D-dimer assay or repeat ultrasound in 5-7 days. If symptoms worsen, the Society of radiologists in ultrasound recommends repeating ultrasound even earlier. Electronically signed by Zonia Maradiaga 07-10-2024 06:[address] 07/10/24 08:00 CT chest diagnostic wo con CLINICAL HISTORY: Left lower zone reticular shadowing on cxr TECHNIQUE: Multidetector row helical CT of the chest was performed. Coronal and sagittal reformations were obtained. Automated dose lowering techniques and/or adjustment according to patient size were utilized for this exam. CT DOSE: 654.08 mGy.cm Comparison: Comparison is made to chest radiograph 07/09/2024 FINDINGS: Lungs and pleura: Peripheral interstitial thickening and atelectasis are seen. Heart and pericardium: Cardiomegaly is seen with biatrial enlargement. Vessels: Severe atherosclerotic changes in the aorta and coronary arteries. Pulmonary trunk measures 33 mm. Mediastinum and symone: Unremarkable. Chest wall and lower neck: Unremarkable. Abdomen: Unremarkable. Bones: Right shoulder arthroplasty is seen. Degenerative changes are seen lumbar spine. IMPRESSION: No acute abnormality to correspond to reticular shadowing in the left lower lobe, this likely represented atelectasis. ACT 112: Negative or not required by law. Electronically signed by: Onel Rae M.D. 07/10/2024 10:15 AM Femur X-Ray 07/10/24 12:20 FL femur LT 2V CLINICAL HISTORY: Left trochnail COMPARISON STUDY: Left femur radiographs and CT of the left hip July 09, 2024. FLUOROSCOPY TIME: 1 minute and 43 seconds. Ka,r: 37.02 mGy FLUOROSCOPIC IMAGES: 4 FINDINGS: Fluoroscopy was provided during internal fixation of the intertrochanteric fracture of the left femur trochanteric nail. Fracture alignment has improved. There are no unexpected radiopaque foreign bodies. IMPRESSION: Fluoroscopy provided during internal fixation of the intertrochanteric fracture of the left femur. ACT 112: Negative or not required by law. Electronically signed by: Erik Ahmadi M.D. 07/10/2024 2:53 PM (1) Closed intertrochanteric fracture of left hip Encounter type: initial encounter Fracture alignment: displaced Qualified Code(s): S72.142A - Displaced intertrochanteric fracture of left femur, initial encounter for closed fracture
[2024-07-14] MEDS ORDERED: POT PHOSPHATE MONOBASIC W/ SOD TAB PO SCH (09:00)
== END 2024-07-13 17:15 | DRG 481 ==
LOC: ED 17:29 → SUATTDRO 22:06 → 2W 22:06